=== PATIENT | female | born 1945 | race Caucasian/White ===

== ENCOUNTER 2017-07-29 11:13 | Inpatient (IN) | payer MEDICARE, OTHER ==
[~2017-07-29] VITALS: Ht 162.6 cm; Wt 103.9 kg
[~2017-07-29 11:13] MED LIST: ASPI81EC PO; ATEN50TA2 PO; FURO-570 PO; INSU100S10 SC; LANTUS SC; LISI-420 PO; NIFE60TE5 PO; POTA10TA PO; SIMV20TA6 PO; [UNRECOGNIZED DRUG - CODE] PO
[2017-07-29 11:33] VITALS: BP 155/66
--- NOTE | 2017-07-29 11:33 | NUR ---
Shade perales in [facility] - 07/29/17 at 1138 by LUCY PATIENT TO BED 4 AT THIS TIME.
--- NOTE | 2017-07-29 11:40 | NUR ---
PT PRESENTS TO ER W/C/O LEFT EAR PAIN S/P EARDRUM PERFORATION. PT STATES SHE WAS STARTED ON ABX, BUT DOESN'T FEEL ANY BETTER. HX OF DM, HTN, HYPERLIPIDEMIA. PT STATES SHE HAS RLQ PAIN;FEELS NAUSEATED BUT DENIES VOMITTING; ALSO C/O DIARRHEA;SKIN IS PINK/WARM/DRY; AAOX4 WITH EVEN AND STEADY GAIT; LUNGS CLEAR BL; HR EVEN AND REGULAR; PT DENIES ANY FEVER, CP, SOB, OR COUGH AT THIS TIME; PATIENT STATES PAIN OF 10/10 AT THIS TIME;PATIENT POSITIONED FOR COMFORT; HOB ELEVATED; BEDRAILS UP X2; BED DOWN.ALL MONITORS IN PLACED; ER MD MADE AWARE OF PT STATUS.
[2017-07-29] MEDS ORDERED: NACL 0.9% 1,000 ML IV SCH (11:55)
[2017-07-29] MEDS ORDERED: ONDANSETRON 4 MG/2 ML VIAL IVP ONE (11:55)
[2017-07-29] MEDS ORDERED: FAMOTIDINE 20 MG/2 ML VIAL IVP ONE (11:55)
[2017-07-29] MEDS ORDERED: KETOROLAC 30 MG/ML VIAL IVP ONE (11:55)
[2017-07-29 12:23] LABS: BASOPHILS # (AUTO) 0.1 K/uL (0.00-0.22); BASOPHILS % (AUTO) 0.9 % (0.0-2.0); EOSINOPHILS # (AUTO) 0.1 K/uL (0-0.4); EOSINOPHILS % (AUTO) 0.8 % (0.0-4.0); HEMATOCRIT 34.1 % (36-48); HEMOGLOBIN 10.9 g/dL (12.0-16.0); LYMPHOCYTES # (AUTO) 1.4 K/uL (2.5-16.5); LYMPHOCYTES % (AUTO) 9.7 % (20.5-51.1); MEAN CORPUSCULAR HEMOGLOBIN 29 pg (27-31); MEAN CORPUSCULAR HGB CONC 32 g/dL (33-37); MEAN CORPUSCULAR VOLUME 90 fL (80-94); MONOCYTES # (AUTO) 0.4 K/uL (0.8-1.0); MONOCYTES % (AUTO) 2.9 % (1.7-9.3); NEUTROPHILS # (AUTO) 12.4 K/uL (1.8-7.7); NEUTROPHILS % (AUTO) 85.7 % (42.2-75.2); PLATELET COUNT (AUTO) 277 K/uL (140-450); RED BLOOD CELL COUNT(AUTO) 3.78 MIL/uL (4.20-5.40); RED CELL DISTRIBUTION WIDTH 14.4 % (11.6-13.7); WHITE BLOOD COUNT (AUTO) 14.4 K/uL (4.8-10.8)
--- NOTE | 2017-07-29 12:27 | NUR ---
WENT TO CT SCAN ACCOMPANIED BY TECH.
[2017-07-29 12:45] LABS: ALBUMIN 3.3 g/dL (3.4-5.0); ANION GAP 14.2 (8-16); CARBON DIOXIDE 28.3 mmol/L (21-32); CREATININE 2.7 mg/dL (0.6-1.3); POTASSIUM 4.5 mmol/L (3.5-5.1); TOTAL BILIRUBIN 0.3 mg/dL (0.0-1.0)
[2017-07-29 13:04] LABS: APPEARANCE,URINE CLEAR (CLEAR); BILIRUBIN,URINE NEGATIVE (NEGATIVE); BLOOD, URINE NEGATIVE (NEGATIVE); COLOR,URINE YELLOW (YELLOW); LEUKOCYTE ESTERASE ,URINE NEGATIVE (NEGATIVE); NITRITE, URINE NEGATIVE (NEGATIVE); PH,URINE 5.5 (5.0-9.0); UGLUCOSE NEGATIVE (NEGATIVE)
[2017-07-29] MEDS ORDERED: PIPERACILLIN/TAZOBACTAM 3.375 GM in DEXTROSE 5% 50 ML IV ONE (13:25)
[2017-07-29] MEDS ORDERED: PIPERACILLIN/TAZOBACTAM 3.375 GM VIAL IV ONE (13:46)
--- NOTE | 2017-07-29 14:20 | NUR ---
PT RESTING ON BED;NO ACUTE DISTRESS NOTED;WILL CONTINUE TO MONITORPT.
[2017-07-29 14:58] LABS: PROTHROMBIN TIME 10.4 secs (10.8-13.4)
[2017-07-29] MEDS ORDERED: RENAL DOSING PER PHARMACY MC PRN (15:00)
[2017-07-29] MEDS ORDERED: DEXTROSE 50% 50 ML SYR IVP PRN (15:00)
[2017-07-29] MEDS ORDERED: ONDANSETRON 4 MG/2 ML VIAL IVP PRN ×2 (15:00→18:30)
[2017-07-29] MEDS ORDERED: HYDROcodone/APAP 5/325 MG 1 TAB TAB PO PRN (15:00)
[2017-07-29] MEDS ORDERED: ACETAMINOPHEN 325 MG TAB PO PRN (15:00)
--- NOTE | 2017-07-29 15:36 | NUR ---
Patient will be admitted to care of DR CUELLAR. Admited to TELE. Will go to room 120 B. Belongings list completed. Report to FABIOLA DEVI.
[2017-07-29 15:50] VITALS: BP 138/55
[2017-07-29] MEDS: NACL 0.9% 1,000 ML IV SCH (15:50)
--- NOTE | 2017-07-29 15:50 | NUR ---
PT ARRIVED TO UNIT FROM ER VIA GINA, PT IS AAOX4 FRENCH, ON ROOM AIR, IV TO LEFT AC 20G INFUSING WELL, SKIN INTACT, IVF STARTED AT THIS TIME, INITIAL ASSESSMENT COMPLETED, ORIENTED PT TO ROOM AND ENVIRONMENT, ALL SAFETY PRECAUTIONS MET, CALL LIGHT WITHIN REACH. WILL CONTINUE TO MONITOR.
[2017-07-29] MEDS: BLOOD GLUCOSE MONITORING 1 DEV DEV FS SCH ×2 (16:50→21:36)
[2017-07-29] MEDS ORDERED: INSULIN HUMAN NPH 100 UNITS/ML VIAL SUBQ SCH (17:00)
--- NOTE | 2017-07-29 17:48 | NUR ---
PT LEFT UNIT TO OR IN STABLE CONDITION.
[2017-07-29] MEDS ORDERED: ROCURONIUM 50 MG/5 ML VIAL IV ONE (18:00)
[2017-07-29] MEDS ORDERED: ONDANSETRON 4 MG/2 ML VIAL ONE (18:00)
[2017-07-29] MEDS ORDERED: DESFLURANE 240 ML BTL INH ONE (18:00)
[2017-07-29] MEDS ORDERED: SUCCINYLCHOLINE CHLORIDE 200 MG/10 ML VIAL IVP ONE (18:00)
[2017-07-29] MEDS ORDERED: PROPOFOL 200 MG/20 ML VIAL IV ONE (18:00)
[2017-07-29] MEDS ORDERED: fentaNYL 0.05 MG/ML VIAL ONE (18:10)
[2017-07-29] MEDS ORDERED: HYDROmorphone 1 MG/ML AMP IVP PRN ×2 (18:30→19:40)
[2017-07-29] MEDS ORDERED: BLOOD GLUCOSE MONITORING 1 DEV DEV FS ONE (18:30)
[2017-07-29] MEDS: BUPIVACAINE-MPF 0.25% 30 ML VIAL INJ ONE ×2 (18:35→18:42)
--- NOTE | 2017-07-29 19:21 | NUR ---
ENDORSED PLAN OF CARE TO NIGHT NURSE, PT CURRENTLY IN OR
--- NOTE | 2017-07-29 19:25 | NUR ---
Patient's Plan of Care was discussed and reviewed with SOLAR RESOURCE ASSESSOR: SAEED GRIFFIN
[2017-07-29 20:20] VITALS: BP 155/57
--- NOTE | 2017-07-29 20:20 | NUR ---
RECD. FROM OR VIA BED, REPORT GIVEN BY FABIOLA FELTON. AWAKE, A/OX4, DROWSY, RESPIRATION EVEN AND UNLABORED, S/P LAP APPENDECTOMY. IV OF NS INFUSING AT 100 ML/HR, LEFT AC G20. INCISION IN THE ABDOMEN (3) COVERED WITH BAND AID, ALL DRY AND INTACT. ON BILATERAL LEG SEQUENTIALS. DENIES PAIN 0/10. DAUGHTER IN LAW AND GRANDDAUGHTER AT THE BEDSIDE.DENIES PAIN 0/10. VS STABLE.
[2017-07-29] MEDS ORDERED: PIPERACILLIN/TAZOBACTAM 3.375 GM in DEXTROSE 5% 50 ML IV SCH (21:00)
--- NOTE | 2017-07-29 21:00 | NUR ---
ENCOURAGED TO TURN TO SIDES, AND DO DEEP BREATHING.
[2017-07-29] MEDS: PIPER/TAZO 2.25GM/D5W PREMIX 50 ML IV SCH (21:31)
[2017-07-29] MEDS: SIMVASTATIN 20 MG TAB PO SCH (21:36)
[2017-07-29] MEDS: ATENOLOL 50 MG TAB PO SCH (21:36)
--- NOTE | 2017-07-30 | NUR ---
STATED PAIN IN THE ABDOMEN IS JUST LIKE "SORE", WILL CALL NURSE WHEN PAIN INCREASES.
--- NOTE | 2017-07-30 00:14 | NUR ---
RECD. RESTING IN BED, AWAKE, A/OX4. RESPIRATION EVEN AND UNLABORED. IV OF NS AT 100 ML/HR INFUSING, LEFT AC 20. INCISION IN THE ABDOMEN (3) COVERED WITH BAND AID DRESSING, ALL DRY AND INTACT. VOIDING WELL AND AMBULATING. NO BM YET, PASSING GAS. PLAN OF CARE FOR THE SHIFT DISCUSSED. VERBALIZED UNDERSTANDING. DENIES PAIN 0/10.
[2017-07-30] MEDS: NACL 0.9% 1,000 ML IV SCH ×4 (00:56→20:56)
[2017-07-30 04:00] VITALS: BP 116/83
--- NOTE | 2017-07-30 05:00 | NUR ---
ASSISTED OUT OF BED TO AMBULATE TO GO TO BR. GAIT STEADY.
[2017-07-30] MEDS: PIPER/TAZO 2.25GM/D5W PREMIX 50 ML IV SCH ×3 (05:41→20:50)
[2017-07-30 06:07] LABS: BASOPHILS % (AUTO) 0.3 % (0.0-2.0); EOSINOPHILS # (AUTO) 0.2 K/uL (0-0.4); EOSINOPHILS % (AUTO) 1.8 % (0.0-4.0); HEMOGLOBIN 8.9 g/dL (12.0-16.0); LYMPHOCYTES # (AUTO) 1.1 K/uL (2.5-16.5); MEAN CORPUSCULAR HEMOGLOBIN 29 pg (27-31); MEAN CORPUSCULAR HGB CONC 32 g/dL (33-37); MEAN CORPUSCULAR VOLUME 90 fL (80-94); MONOCYTES # (AUTO) 0.4 K/uL (0.8-1.0); MONOCYTES % (AUTO) 3.4 % (1.7-9.3); NEUTROPHILS # (AUTO) 10.3 K/uL (1.8-7.7); NEUTROPHILS % (AUTO) 85.5 % (42.2-75.2); PLATELET COUNT (AUTO) 236 K/uL (140-450); RED BLOOD CELL COUNT(AUTO) 3.11 MIL/uL (4.20-5.40); RED CELL DISTRIBUTION WIDTH 14.4 % (11.6-13.7)
[2017-07-30] MEDS: BLOOD GLUCOSE MONITORING 1 DEV DEV FS SCH ×4 (06:15→20:24)
[2017-07-30] MEDS: INSULIN LISPRO SLIDING SCALE 100 UNITS/ML VIAL SUBQ PRN ×4 (06:17→20:26)
[2017-07-30 06:24] LABS: ANION GAP 14.8 (8-16); CARBON DIOXIDE 24.7 mmol/L (21-32); CREATININE 2.5 mg/dL (0.6-1.3); POTASSIUM 4.5 mmol/L (3.5-5.1)
[2017-07-30 06:34] LABS: MAGNESIUM 1.8 mg/dL (1.8-2.4); PHOSPHORUS 4.2 mg/dL (2.5-4.9)
--- NOTE | 2017-07-30 06:52 | NUR ---
CONDITION REMAIN STABLE. ABLE TO VOID SMALL AMOUNT OF YELLOW URINE. ENCOURAGED TO AMBULATE MORE.
--- NOTE | 2017-07-30 07:10 | NUR ---
RECEIVED REPORT FROM POUCH MAKER NURSE AT BEDSIDE FOR CONTINUITY OF CARE. PT IS AWAKE AND ORIENTED. INTRODUCED SELF AND UPDATED BOARD.
[2017-07-30 07:57] VITALS: BP 107/50
[2017-07-30] MEDS: NIFEdipine 60 MG TABER PO SCH (08:26)
[2017-07-30] MEDS: ATENOLOL 50 MG TAB PO SCH ×2 (08:26→20:23)
[2017-07-30] MEDS: ENOXAPARIN 30 MG/0.3 ML SYR SUBQ SCH (08:27)
[2017-07-30] MEDS ORDERED: ECOTRIN 81 MG TABEC PO SCH (09:00)
[2017-07-30] MEDS ORDERED: POTASSIUM CITRATE 10 MEQ PO SCH (09:00)
--- NOTE | 2017-07-30 09:05 | NUR ---
ADMINISTERED SCHEDULED MEDS TO PT. PT TOLERATED WELL. IV OF NS IS STILL INFUSING AT 100ML/HR ON LEFT AC 20G. IV SITE IS INTACT. PT STATES PAIN THAT IS TOLERABLE 1/10 SCALE ON ABDOMEN. REFUSED PAIN MED. WILL CONTINUE TO MONITOR.
--- NOTE | 2017-07-30 09:20 | NUR ---
[facility] REFERRAL RECEIVED ON 07/29/2017-1636 FOR UNSPECIFIED REASON. REFERRAL DOES NOT MEET HIGH RISK CRITERIA PER HOSPITAL POLICY. PATIENT WILL BE SEEN AND ASSESSED ACCORDING TO THE NUTRITION CARE POLICY.
--- NOTE | 2017-07-30 09:21 | NUR ---
PATIENT HAS BEEN SCREENED AND CATEGORIZED MODERATE NUTRITION RISK. PATIENT WILL BE SEEN WITHIN 3-5 DAYS OF ADMISSION. 08/01/17-08/03/[address]
[2017-07-30 12:00] VITALS: BP 130/45
[2017-07-30] MEDS: HYDROcodone/APAP 5/325 MG 1 TAB TAB PO PRN ×2 (12:45→20:23)
--- NOTE | 2017-07-30 12:45 | NUR ---
PT'S FAMILY IS AT BEDSIDE. PT STATED PAIN ON HER ABDOMINAL AREA 01/03. ADMINISTERED NORCO FOR MILD PAIN. BS WAS 210. ADMINISTERED 4UNITS INSULIN. PT TOLERATED MEDS WELL. PT ALSO GOT UP TO WALK AROUND THE UNIT ASSISTED BY FAMILY MEMBER. PT HAS NO WEAKNESS OR DIZZINESS NOTED. PT WALKED WITH STEADY GAIT AND GOT UP TO USE BATHROOM. ASSISTED BACK TO BED AND REPOSITIONED FOR COMFORT. NO COMPLAINTS AT THIS TIME. WILL CONTINUE TO MONITOR.
--- NOTE | 2017-07-30 13:33 | NUR ---
CHECKED ON PT IN ROOM. FAMILY IS AT BEDSIDE. PT HAS NO COMPLAINTS AT THIS TIME WILL CONTINUE TO MONITOR.
[2017-07-30 16:00] VITALS: BP 111/43
[2017-07-30] MEDS: ONDANSETRON 4 MG/2 ML VIAL IV PRN (18:11)
--- NOTE | 2017-07-30 18:11 | NUR ---
PT WAS FEELING NAUSEOUS. ADMINISTERED ZOFRAN FOR NAUSEA. GAVE PT AND FAMILY MEMBER MED SIDE EFFECTS AND TEACHING. FAMILY MEMBER AT BEDSIDE AND TRANSLATED FOR PT. PT TOLERATED WELL AND VERBALIZED UNDERSTANDING. WILL CONTINUE TO MONITOR.
--- NOTE | 2017-07-30 19:07 | NUR ---
ENDORSED PT TO TEAM MEMBER NURSE AT BEDSIDE FOR CONTINUITY OF CARE. PT IS AWAKE AND ORIENTED. FAMILY AT BEDSIDE. PT IN STABLE CONDITION.
[2017-07-30 20:00] VITALS: BP 101/43
--- NOTE | 2017-07-30 20:00 | NUR ---
02 SAT - 88 - 90%, PUT ON 02 AT 2 LITERS VIA NC/, 02 SAT - 92-94%, ENCOURAGED TO DO DEEP BREATHING.
[2017-07-30] MEDS: SIMVASTATIN 20 MG TAB PO SCH (20:23)
--- NOTE | 2017-07-30 20:23 | NUR ---
DUE PO MEDICATIONS GIVEN. TOLERATED WELL.
--- NOTE | 2017-07-30 21:00 | NUR ---
Patient's Plan of Care was discussed and reviewed with DRAFTER HEATING AND VENTILATING: SAEED GRIFFIN
--- NOTE | 2017-07-30 22:00 | NUR ---
ASSISTED TO GET OUT OF BED GO TO BR TO VOID. BACK TO BED AFTER VOIDING. WENT BACK TO SLEEP.
[2017-07-31] VITALS (21 sets, daily range): BP systolic 97–129; BP diastolic 41–75
--- NOTE | 2017-07-31 | NUR ---
SLEEPING ON LEFT SIDE, ENCOURAGED TO TURN ON THE OTHER SIDE AND DO IT ALTERNATELY.
[2017-07-31] MEDS: NACL 0.9% 1,000 ML IV SCH ×2 (00:07→06:56)
[2017-07-31] MEDS: PIPER/TAZO 2.25GM/D5W PREMIX 50 ML IV SCH ×3 (04:33→22:08)
[2017-07-31] MEDS: BLOOD GLUCOSE MONITORING 1 DEV DEV FS SCH ×5 (06:10→21:00)
--- NOTE | 2017-07-31 06:10 | NUR ---
BLOOD SUGAR CHECKED - 238, WILL GIVE INSULIN COVERAGE, ASYMPTOMATIC.
[2017-07-31] MEDS: INSULIN LISPRO SLIDING SCALE 100 UNITS/ML VIAL SUBQ PRN ×4 (06:15→22:31)
[2017-07-31 06:22] LABS: BASOPHILS % (AUTO) 0.4 % (0.0-2.0); EOSINOPHILS # (AUTO) 0.3 K/uL (0-0.4); EOSINOPHILS % (AUTO) 2.2 % (0.0-4.0); HEMOGLOBIN 9.1 g/dL (12.0-16.0); LYMPHOCYTES # (AUTO) 1.4 K/uL (2.5-16.5); LYMPHOCYTES % (AUTO) 11.7 % (20.5-51.1); MEAN CORPUSCULAR HEMOGLOBIN 29 pg (27-31); MEAN CORPUSCULAR HGB CONC 32 g/dL (33-37); MEAN CORPUSCULAR VOLUME 90 fL (80-94); MONOCYTES # (AUTO) 0.4 K/uL (0.8-1.0); MONOCYTES % (AUTO) 3.4 % (1.7-9.3); NEUTROPHILS # (AUTO) 9.6 K/uL (1.8-7.7); NEUTROPHILS % (AUTO) 82.3 % (42.2-75.2); PLATELET COUNT (AUTO) 237 K/uL (140-450); RED BLOOD CELL COUNT(AUTO) 3.11 MIL/uL (4.20-5.40); RED CELL DISTRIBUTION WIDTH 14.8 % (11.6-13.7); WHITE BLOOD COUNT (AUTO) 11.7 K/uL (4.8-10.8)
[2017-07-31 06:35] LABS: CARBON DIOXIDE 22.6 mmol/L (21-32); CREATININE 3.6 mg/dL (0.6-1.3); POTASSIUM 4.6 mmol/L (3.5-5.1)
--- NOTE | 2017-07-31 07:00 | NUR ---
INFORMED DR. CUELLAR PATIENT BUN - 67, CREATININE - 3.6, DR. MANRIQUE HAVE NOT SEEN THE PATIENT YET. WILL CALL FOLLOW UP WITH DR. MANRIQUE, NEPHRO CONSULT. ALSO INFORMED PATIENT HAS NOT BEEN TAKING LASIX 50 MG. EVERY OTHER DAY WHICH SHE TAKES AT HOME.
--- NOTE | 2017-07-31 07:05 | NUR ---
ENDORSED TO AM NURSE FOR CONTINUITY OF CARE. CONDITION REMAIN STABLE.
--- NOTE | 2017-07-31 07:06 | NUR ---
RECEIVED REPORT FROM GREENHOUSE INSTRUCTOR NURSE AT BEDSIDE FOR CONTINUITY OF CARE. PT IS AWAKE AND ORIENTED. INTRODUCED SELF AND UPDATED BOARD. WILL CONTINUE WITH CURRENT PLAN OF CARE AND MONITOR.
--- NOTE | 2017-07-31 08:00 | NUR ---
PT IS AAOX4, AMBULATES TO BATHROOM WITH STEADY GAIT. PT ON TELE MONITOR SB 55. NO COMPLAINTS OF CHEST PAIN. SKIN IS WARM AND DRY. INCISIONS FROM S/P LAP APPENDECTOMY ARE COVERED WITH BANDAIDS AND DRY AND INTACT. PITTING EDEMA +1 NOTED ON UPPER EXTREMITIES. IV IS ON LEFT AC 20G WITH NS INFUSING AT 100ML/HR. PT IS ON O2 VIA NC 2L AND SAT 94%. NO RESPIRATORY DISTRESS NOTED. ABDOMEN IS SOFT AND ROUND, BS PRESENT. PER PT AND DAUGHTER AYESHA REPORTED PT IS NOT PASSING GAS AND HAD NO BM SINCE SURGERY. PT DENIES PAIN OR NAUSEA AT THIS TIME. WILL CONTINUE TO MONITOR.
[2017-07-31] MEDS: ENOXAPARIN 30 MG/0.3 ML SYR SUBQ SCH (08:33)
[2017-07-31] MEDS: ATENOLOL 50 MG TAB PO SCH ×2 (08:33→21:45)
[2017-07-31] MEDS: NIFEdipine 60 MG TABER PO SCH (08:33)
--- NOTE | 2017-07-31 08:45 | NUR ---
CALLED PT'S DAUGHTER AYESHA. STATED THAT PT TAKES LEVEMIR 65 UNITS DAILY AT HOME. UPDATED DAUGHTER WITH STATUS OF PT. PT IS RESTING IN BED RIGHT NOW. PT DENIES HAVING PAIN OR HEADACHE. WILL CONTINUE TO MONITOR.
[2017-07-31] MEDS: INSULIN DETEMIR 100 UNITS/ML 10 ML VIAL SUBQ SCH (09:48)
--- NOTE | 2017-07-31 10:30 | NUR ---
PT'S DAUGHTER AYESHA IS AT BEDSIDE. REPORTED FOR PT THAT SHE DENIES PAIN. PT ALSO DENIED PAIN, DIZZINESS, OR WEAKNESS. PULLED UP PT IN BED AND REPOSITIONED WITH HOB ELEVATED. REINFORCED PT TO USE CALL LIGHT WHEN NEEDED AND TO CALL WHEN SHE WANTS TO GET OUT OF BED. PT AND DAUGHTER VERBALIZED UNDERSTANDING.
--- NOTE | 2017-07-31 12:35 | NUR ---
CHECKED ON PT IN ROOM. FAMILY IS AT BEDSIDE. PER PT STATED THAT SHE WANTS TO AMBULATE DOWN THE ORTIZ. DENIES PAIN. REMOVED SCDS AT THIS TIME DUE TO PT REFUSAL TO WEAR IN BED. NO OTHER COMPLAINTS AT THIS TIME WILL CONTINUE TO MONITOR.
--- NOTE | 2017-07-31 12:59 | NUR ---
CM NOTE PER ADELITA FOR CM KATEY MEDINA OF [facility] [phone] EXT [phone], REVIEWS SHOULD BE SENT TO [facility] AND FOR ANY DISCHARGE NEEDS TO CONTACT [facility]. PER OPAL OF [facility] PH [phone] EXT [phone], THEY ALSO NEED A COPY OF THE REVIEWS TO BE FAXED TO THEM BUT FOR ANY DISCHARGE NEEDS TO CONTACT [facility]. INITIAL REVIEW FAXED TO [facility] [phone] DAVID MEDINA EXT [phone] AND TO [facility] [phone] OPAL EXT [phone] Addendum: 07/31/17 at 1504 by Karena Jimenez RECEIVED FAX FROM [facility] STATING THAT THIS ADMISSION'S REF# [id number]/02/2017 PER MARYANNE Adams OF ADMITTING COVERING FOR [facility] REF# [id number]
--- NOTE | 2017-07-31 13:50 | NUR ---
DR. DOMINGUEZ CAME IN AND SAW PT. RECEIVED ORDER TO D/C IV FLUIDS OF NS AND INSERT DEWEY CATHETER. D/C'S IV FLUIDS. PT IS SLEEPING IN BED RIGHT NOW WITH FAMILY AT BEDSIDE. FAMILY MEMBER TRANSLATED FOR PT AND SAID THAT PT IS AWARE TO HAVE DEWEY CATHETER INSERTED AND NO NEED FOR IV FLUIDS. PT VERBALIZED UNDERSTANDING. AT THIS TIME PT HAS NO COMPLAINTS
[2017-07-31] MEDS ORDERED: FUROSEMIDE 40 MG/4 ML VIAL IVP SCH (14:00)
--- NOTE | 2017-07-31 17:00 | NUR ---
CALLED DR. DOMINGUEZ AND REPORTED DEWEY CATHETER INSERTED AND 300ML OF URINE OUTPUT. AFTER LASIX GIVEN IVP 200ML OUTPUT MORE NOTED. D/C'D IV FLUIDS PER ORDERS. PT RESTING IN BED. VISITOR AT BEDSIDE. WILL CONTINUE TO MONITOR
[2017-07-31] MEDS ORDERED: SODIUM BICARBONATE 8.4% PFS 50 MEQ/50 ML SYR IVP ONE (19:15)
[2017-07-31] MEDS ORDERED: CODE BLUE PARTICIPANT 1 EA MISC MC ONE (19:15)
[2017-07-31] MEDS ORDERED: ETOMIDATE 20 MG/10 ML VIAL IVP ONE (19:15)
[2017-07-31] MEDS ORDERED: EPINEPHrine PFS 0.1 MG/ML SYR IVP ONE (19:15)
--- NOTE | 2017-07-31 19:15 | NUR ---
PT CALLED WITH COMPLAINING OF SOB. CHECKED ON PT AND ASSISTED PT TO SITTING UP POSITION. PT WAS ON O2 VIA NC 2L. PT BECAME UNRESPONSIVE AND RORY VILLAR WAS CALLED. DR. BRUNSON AND CODE TEAM CAME AND CPR WAS STARTED. PT WAS INTUBATED AND CODE ENDED AT 1922.
--- NOTE | 2017-07-31 19:35 | NUR ---
DR. CUELLAR NOTIFIED THAT PATIENT CODED AND TRANSFERRED TO ICU.
--- NOTE | 2017-07-31 19:39 | NUR ---
RECEIVED PATIENT FROM THE FLOOR, ACCOMPANIED BY EMT,RN AND RT. REPORT GIVEN BY ELIZABETH HICKS. PER NÉSTOR PT HAS DIFFICULTY BREATHING AND CODED ON THE FLOOR. PATIENT AWAKE NON VERBAL, ETT TO VENT WITH AC 12,TV 500,FIO2 50,PEEP 5.PT ON CARDIAC MONITORING,IV LINE TO LEFT AC 20 GAUGE PATENT INTACT,EDEMA BUE NON PITTING,F/C INPLACE WITH YELLOW CLEAR URINE DRAINAGE BY GRAVITY.BED IN LOW POSITION .SAFETY MEASURE.CONTINUE TO MONITOR.
--- NOTE | 2017-07-31 19:40 | NUR ---
PT WAS TRANSFERRED TO ICU. DAUGHTER AYESHA WAS CALLED AT [phone] AND NOTIFIED OF CHANGE IN CONDITION AND TRANSFER.
--- NOTE | 2017-07-31 19:48 | NUR ---
191 CODE BLUE [place] CALLED AND CPR INITIATED , PT INTUBATED BY DR BRUNSON W/ 7.5 ETT AND TAPED AT 25CM AT LIP. PT WAS TRANSFERRED TO ICU BED #2, VIA 100% AMBU BAG AND PLACED ON VENTILATOR IN ICU. SETTING ARE A/C12, VT 500, FIO2 50% PEEP +[address] BRUNSON. GAVE REPORT TO MR. Keara SEQUEIRA,BOBBIN LOOSE END FINDER
--- NOTE | 2017-07-31 20:00 | NUR ---
OGT INSERTED , PLACEMENT CONFIRM BY AUSCULTATION AND X-RAY. Addendum: 08/01/17 at 0641 by Beverly Lopes RN TIME CORRECTION IS 2100 INSTEAD OF 2000
--- NOTE | 2017-07-31 20:12 | NUR ---
PAGED DR. YANELI CUELLAR TO NOTIFY AND UPDATE HIM ABOUT THE STATUS OF THE PATIENT; WITH NEW ORDERS CARRIED OUT.
[2017-07-31] MEDS ORDERED: PROPOFOL 1000 MG/100 ML PREMIX 100 ML IV PRN (20:15)
--- NOTE | 2017-07-31 20:33 | NUR ---
CODE BLUE AT 1916 HOURS PATIENT INTUBATED BY ER DOCTOR. PATIENT TRANSFERRED TO ICU. ETT 7.5/ 22 CM LIP LINE. PATIENT PLACED ON VENT AC 12, VT 500 PEEP 5, FIO2 50. PATIENT STABLE IN ICU ON VENT SEE ABOVE SETTINGS.
[2017-07-31] MEDS ORDERED: PROPOFOL 1000 MG/100 ML PREMIX 100 ML IV ONE (20:34)
--- NOTE | 2017-07-31 20:40 | NUR ---
FAMILY MEMBER, AYESHA (DAUGHTER IN LAW), LEIDY (GRANDDAUGHTER) IN THE UNIT. UPDATED OF PATIENT'S CONDITION. FAMILY MEMBER VERBALIZED UNDERSTANDING.
[2017-07-31] MEDS: DEXT 5% / NACL 0.45% 1,000 ML IV SCH (20:41)
--- NOTE | 2017-07-31 20:50 | NUR ---
FOR CONSULTATION TO REGIONAL ENVIRONMENTAL MANAGER, DR. PLASCENCIA; NOTIFIED THRU TELEPHONE; WITH NEW ORDERS, CARRIED OUT.
--- NOTE | 2017-07-31 20:56 | NUR ---
PT STARTED ON PROPOFOL DRIP AT 5MCG/KG/MIN, RASS -3 PER MD ORDER.
[2017-07-31] MEDS ORDERED: INSULIN LISPRO 100 UNITS/ML VIAL SUBQ SCH (21:00)
--- NOTE | 2017-07-31 21:12 | NUR ---
DR. Jason CUELLAR NOTIFIED AND UPDATED THRU TELEPHONE ABOUT THE PATIENT'S MEDICAL CONDITION, NO NEW ORDER MADE.
--- NOTE | 2017-07-31 21:45 | NUR ---
TERNORMIN 50 MG NOT GIVEN D/T LOW BP 99/45 HR 55.
[2017-07-31 21:55] LABS: CREATINE KINASE MB 9.7 ng/mL (0-3.6)
[2017-07-31] MEDS: ALBUTEROL SULFATE/IPRATROPIU 3 ML SOL IH PRN (22:08)
[2017-07-31] MEDS: SIMVASTATIN 20 MG TAB PO SCH (22:08)
--- NOTE | 2017-07-31 22:30 | NUR ---
O2 SAT 89-90% RT INCREASE FIO2 TO 100%,AC 12,TV 500,PEEP 5 TOLERATED WELL SPO2 100%.
[2017-07-31] MEDS: MORPHINE SULFATE 4 MG/ML SYR IV PRN (22:44)
[2017-08-01] VITALS (26 sets, daily range): BP systolic 82–162; BP diastolic 38–93
[2017-08-01] MEDS ORDERED: VANCOMYCIN PER PHARMACY MC PRN (01:05)
--- NOTE | 2017-08-01 01:10 | NUR ---
STOP PROPOFOL DRIP D/T HR 48-50 X/MIN, BP ABOUT 91/41.CONTINUE TO MONITOR CLOSELY
[2017-08-01] MEDS: LORazepam 2 MG/ML VIAL IVP PRN (01:25)
--- NOTE | 2017-08-01 03:00 | NUR ---
PT SLEEP WELL,NO S/S OF RESP.DISTRESS,NO SOB.CALL LIGHT IN REACH.
[2017-08-01] MEDS ORDERED: VANCOMYCIN 1,000 MG VIAL ONE (03:42)
[2017-08-01] MEDS ORDERED: VANCOMYCIN HCL 1,500 MG in NACL 0.9% 500 ML IV SCH (04:00)
--- NOTE | 2017-08-01 05:00 | NUR ---
PT AWAKE ALERT,NO S/S OF RESP DISTRESS,NO SOB,CONT ON ETT TO VENT BK WELL.AM CARE GIVEN,F/C CARE GIVEN.REPOSITION FOR COMFORT.GENTLE CARE RENDERED.
--- NOTE | 2017-08-01 06:00 | NUR ---
SURGICAL SITE ON ABD NO.1 WITH 3 KALLI AROUND THE SITE BRUISE ECCHYMOSIS,SURGICAL SITE NO 2 AT ABD ON UMBILICUS SITE WITH 4 KALLI, SURGICAL SITE NO 3 LOWER ABD WITH 2 KALLI INTACT NO S/S OF INFECTION.
[2017-08-01 06:06] LABS: HEMATOCRIT 26.4 % (36-48); HEMOGLOBIN 8.2 g/dL (12.0-16.0); MEAN CORPUSCULAR HEMOGLOBIN 28 pg (27-31); MEAN CORPUSCULAR HGB CONC 31 g/dL (33-37); MEAN CORPUSCULAR VOLUME 91 fL (80-94); PLATELET COUNT (AUTO) 251 K/uL (140-450); RED BLOOD CELL COUNT(AUTO) 2.89 MIL/uL (4.20-5.40); RED CELL DISTRIBUTION WIDTH 14.9 % (11.6-13.7); WHITE BLOOD COUNT (AUTO) 12.4 K/uL (4.8-10.8)
[2017-08-01] MEDS: DEXT 5% / NACL 0.45% 1,000 ML IV SCH ×2 (06:15→10:18)
[2017-08-01] MEDS: PIPER/TAZO 2.25GM/D5W PREMIX 50 ML IV SCH ×3 (06:32→21:00)
[2017-08-01] MEDS: BLOOD GLUCOSE MONITORING 1 DEV DEV FS SCH ×4 (06:33→20:59)
--- NOTE | 2017-08-01 06:55 | NUR ---
BLOOD SUGAR CHECKED RESULT 102,NO COVERAGE GIVEN.
[2017-08-01 07:07] LABS: CREATININE 3.8 mg/dL (0.6-1.3)
[2017-08-01 07:28] LABS: MAGNESIUM 2.1 mg/dL (1.8-2.4)
--- NOTE | 2017-08-01 07:33 | NUR ---
RECIVED PT ON VENT WITH SETTINGS CHARTED BREATH SOUNDS PRESENT BILAT CLEAR PT AWAKE ALERT WEANING PARAMETERS CHARTED SXN PT WITH SCANT PINKISH SECS AMBU BAG AT BEDSIDE VENT PLUGGED INTO RED OUTLET
[2017-08-01 07:37] LABS: EOSINOPHILS % (MANUAL) 2 % (0-4); LYMPHOCYTES % (MANUAL) 13 % (20-46); MONOCYTES % (MANUAL) 8 % (5-12)
--- NOTE | 2017-08-01 07:38 | NUR ---
REPORT GIVEN TO SRI FOR CONTINUATION OF CARE.PT AWAKE WITH STABLE CONDITION,NO RESP DISTRESS, NO SOB, ON ETT TO VENT WITH SPO2 100 %.
[2017-08-01 07:39] LABS: CREATINE KINASE MB 12.9 ng/mL (0-3.6)
--- NOTE | 2017-08-01 08:45 | NUR ---
PLACED PT ON CPAP PS [address]ASC[address]IA PT SEEM TO KB WELL AT THIS TIME WILL CONTINUE TO MONITOR PT
[2017-08-01] MEDS: ALBUTEROL SULFATE/IPRATROPIU 3 ML SOL IH PRN (08:58)
[2017-08-01] MEDS: ATENOLOL 50 MG TAB PO SCH ×2 (09:00→21:01)
[2017-08-01] MEDS: INSULIN DETEMIR 100 UNITS/ML 10 ML VIAL SUBQ SCH (09:00)
[2017-08-01] MEDS: NIFEdipine 60 MG TABER PO SCH (09:00)
[2017-08-01] MEDS ORDERED: PROBIOTIC SCREEN 1 EA MISC MC PRN (09:40)
[2017-08-01] MEDS ORDERED: LACTOBACILLUS RHAMNOSUS GG 1 EACH CAP PO SCH (09:40)
--- NOTE | 2017-08-01 09:55 | NUR ---
DR. CUELLAR HERE TO SEE AND EXAMINE PT. MADE AWARE THAT ATENOLOL WAS HELD DUE TO BRADYCARDIA, PROCARDIA HELD ( PT . HAS OGT, CAN NOT CRUSH PILL), PRATEEK HELD, PT. IS NPO.
[2017-08-01] MEDS: ENOXAPARIN 30 MG/0.3 ML SYR SUBQ SCH (10:00)
[2017-08-01] MEDS ORDERED: PANTOPRAZOLE 40 MG INJ VIAL IVP SCH (10:06)
--- NOTE | 2017-08-01 10:06 | NUR ---
DECREASED FIO2 TO .45 RN AWARE
--- NOTE | 2017-08-01 10:58 | NUR ---
CM NOTE CONCURRENT REVIEW FAXED TO [facility] [phone] PH [phone] DAVID MEDINA EXT [phone] PER [facility] PH# [phone] EXT [phone], [facility] DOES NOT NEED ANY FURTHER REVIEWS FOR THIS ADMISSION
--- NOTE | 2017-08-01 12:05 | NUR ---
08/01/17 RD INITIAL ASSESSMENT COMPLETED PLEASE REFER TO NUTRITION ASSESSMENT UNDER CARE ACTIVITY FOR ESTIMATED NUTRITIONAL NEEDS. 1. WHEN MEDICALLY FEASIBLE, RESUME PO DIET TO START ON CLEAR LIQUID DIET AND ADVANCE TOLERATED TO 60G CONSISTENT CARBOHYDRATE DIET 2. IF PATIENT TO REMAIN INTUBATED >5 DAYS, CONSIDER ENTERAL NUTRITION SUPPORT VIA NGT ON DAY 3-5 (DIABETISOURCE AC TO START AT 30 ML/HR). CONSULT RD FOR TUBE FEEDING GOAL RATE RECOMMENDATIONS 3. RD TO FOLLOW-UP 2-3 DAYS, HIGH RISK PATRICIA VACA RD
[2017-08-01] MEDS: ONDANSETRON 4 MG/2 ML VIAL IV PRN ×2 (13:23→18:53)
--- NOTE | 2017-08-01 13:30 | NUR ---
Pt became very nauseated and felt like throwing up after HOB flat briefly during position change. zofran administered
[2017-08-01] MEDS ORDERED: FUROSEMIDE 40 MG/4 ML VIAL IVP SCH ×2 (15:00→15:15)
[2017-08-01 16:06] LABS: CREATINE KINASE MB 9.5 ng/mL (0-3.6)
[2017-08-01] MEDS: LACTOBACILLUS RHAMNOSUS GG 1 EACH CAP PO SCH (17:29)
--- NOTE | 2017-08-01 18:52 | NUR ---
PT. C/O OF FEELING NAUSEATED. RESTLESS, REPOSITIONED. HOB ELEVATED. ZOFRAN 4 MG IVP GIVEN.
--- NOTE | 2017-08-01 18:53 | NUR ---
STILL RESTLESS, KEPT ON MOVING AROUND IN BED. C/O PAIN OVER EPIGASTRIC AREA 03/05. MORPHINE GIVEN ORDERED.
--- NOTE | 2017-08-01 18:53 | NUR ---
PT IS VERY AGITATED AT THIS TIME O2 SAT DECREASED TO 77% INCREASED FIO2 TO 80% PLACED BACK ON AC 12 VT500 PEEP 5 FIO2 80% ALARMS ON AND FUNCTIONING PROPERLY AMBU BAG AT SIDE OF VENT AND VENTILATOR IS PLUGGED INTO RED OUTLET, SXN PT SMALL AMT OF BROWN SECRETIONS B\S ARE COARSE BILATERALLY, PT IS ORALLY INTUBATED WITH 7.5 ET TUBE SECURED WITH ANCHOR FAST AT 22 CM AT MIDLINE AND MOV IS 22 CMHO2 PT WAS MORPHINE TO SEDATED HER, NO RESTING
[2017-08-01] MEDS: MORPHINE SULFATE 4 MG/ML SYR IV PRN (18:54)
--- NOTE | 2017-08-01 19:20 | NUR ---
SLEEPING SOUNDLY AT THIS TIME.
--- NOTE | 2017-08-01 19:25 | NUR ---
RECEIVE PT FROM SRI RN,PT LYING ON THE BED,OPEN HER EYES WHEN CALL HER NAME,ABLE TO GIVE SIGN FOR YES OR NO,NO S/S OF RESP DISTRESS,NO SOB, ETT TO VENT WITH SETTING AC 12 TV 500 FIO2 80 PEEP 5. OGT CONNECT TO INTERMITTEN SUCTION WITH BROWNISH COLOR IN CANISTER. NO C/O NAUSEA AT THIS TIME. DEBORA LUNGS SOUND DIMINISH.PERIPHERAL LINE TO LEFT ANTECUBITAL NO 20 GAUGE INTACT AND PATENT. BOTH HAND EDEMA +1 NON PITTING.ABD SOFT NON DISTENDED, HYPOACTIVE BOWEL SOUND HEARD OVER ALL QUADRANT.F/C IN PLACE YELLOW CLEAR URINE ON THE BSD BAG.SCD ON BLE.
--- NOTE | 2017-08-01 20:01 | NUR ---
RT CHANGE VENT SETTING TO AC 12 TV 500 FIO2 60 PEEP 5 KB WELL.
--- NOTE | 2017-08-01 20:46 | NUR ---
VENT CHECK, NO SXN REQUIRED AT THIS TIME, B\S ARE COARSE AND AIRWAY IS PATENT FAMILY AT BEDSIDE
[2017-08-01] MEDS: SIMVASTATIN 20 MG TAB PO SCH (21:00)
--- NOTE | 2017-08-01 21:00 | NUR ---
FAMILY AT BED SIDE. NIGHT MEDS GIVEN TOLERATED WELL,BLOOD SUGAR 105 NO INSULIN NEEDED. HOB UP 30-45 DEGREE.LOOK COMFORTABLE,NO S/S OF PAIN/DISCOMFORT.CALL LIGHT IN REACH.
--- NOTE | 2017-08-01 23:06 | NUR ---
VENT CHECK, NO SXN REQUIRED AT THIS TIME, AIRWAY IS PATENT AND PT IS SLEEPING DECREASED FIO2 TO 50%
--- NOTE | 2017-08-01 23:10 | NUR ---
FIO2 TO 50% BY RT KB WELL, NO S/S OF RESP.DISTRESS,NO SOB. PT SLEPT WELL.
[2017-08-02] VITALS (15 sets, daily range): BP systolic 124–153; BP diastolic 46–66
--- NOTE | 2017-08-02 00:30 | NUR ---
VENT CHECK, NO SXN REQUIRED AT THIS TIME AIRWAY IS PATENT AND PT IS SLEEPING DECREASED FIO2 TO 40%
--- NOTE | 2017-08-02 00:45 | NUR ---
FIO2 WAS DECREASE TO 40% BY RT AND PT TOLERATED WELL,NO RESP DISTRESS,NO SOB, O2 SAT 97%. REPOSITION PT FOR COMFORT.
--- NOTE | 2017-08-02 03:21 | NUR ---
VENT CHECK, SXN PT SMALL AMT OF CREAM COLOR SECRETIONS, AIRWAY IS PATENT AND PT IS RESTING
--- NOTE | 2017-08-02 05:00 | NUR ---
MORNING CARE GIVEN TOLERATED WELL,
--- NOTE | 2017-08-02 05:06 | NUR ---
VENT CHECK, NO SXN REQUIRED AT THIS TIME, AIRWAY IS PATENT CHANGED HME CRESPO AND T-PIECE PT IS RESTING WITH NO SIGNS OF DISTRESS NOTED
[2017-08-02] MEDS: PIPER/TAZO 2.25GM/D5W PREMIX 50 ML IV SCH ×3 (05:11→21:05)
[2017-08-02 05:33] LABS: BASOPHILS # (AUTO) 0.1 K/uL (0.00-0.22); BASOPHILS % (AUTO) 1.1 % (0.0-2.0); EOSINOPHILS # (AUTO) 0.1 K/uL (0-0.4); EOSINOPHILS % (AUTO) 1.2 % (0.0-4.0); HEMATOCRIT 25.2 % (36-48); HEMOGLOBIN 8.3 g/dL (12.0-16.0); LYMPHOCYTES # (AUTO) 1.3 K/uL (2.5-16.5); LYMPHOCYTES % (AUTO) 14.5 % (20.5-51.1); MEAN CORPUSCULAR HEMOGLOBIN 29 pg (27-31); MEAN CORPUSCULAR HGB CONC 33 g/dL (33-37); MEAN CORPUSCULAR VOLUME 88 fL (80-94); MONOCYTES # (AUTO) 0.5 K/uL (0.8-1.0); MONOCYTES % (AUTO) 5.6 % (1.7-9.3); NEUTROPHILS # (AUTO) 7.1 K/uL (1.8-7.7); NEUTROPHILS % (AUTO) 77.6 % (42.2-75.2); PLATELET COUNT (AUTO) 279 K/uL (140-450); RED BLOOD CELL COUNT(AUTO) 2.86 MIL/uL (4.20-5.40); RED CELL DISTRIBUTION WIDTH 14.5 % (11.6-13.7)
[2017-08-02 05:44] LABS: ALBUMIN 2.2 g/dL (3.4-5.0); ANION GAP 12.2 (8-16); CARBON DIOXIDE 27.3 mmol/L (21-32); CREATININE 3.3 mg/dL (0.6-1.3); MAGNESIUM 1.7 mg/dL (1.8-2.4); POTASSIUM 3.5 mmol/L (3.5-5.1); TOTAL BILIRUBIN 0.4 mg/dL (0.0-1.0)
[2017-08-02 06:20] LABS: WHITE BLOOD COUNT (AUTO) 9.1 K/uL (4.8-10.8)
--- NOTE | 2017-08-02 07:15 | NUR ---
Bedside report received from FABIOLA Paulboat dock operatormaintenance director.
--- NOTE | 2017-08-02 07:25 | NUR ---
REPORT GIVEN TO WILLIAN HICKS FOR CONTINUATION OF CARE, PT SLEEP EASY TO AWAKE, NO S/S OF RES/. DISTRESS,NO SOB. SOP2 96%.
[2017-08-02] MEDS: BLOOD GLUCOSE MONITORING 1 DEV DEV FS SCH ×3 (08:30→20:57)
--- NOTE | 2017-08-02 08:48 | NUR ---
PT PLACED ON CPAP 5 PS 10 WILL CONTINUE TO MONITOR.
[2017-08-02] MEDS: INSULIN DETEMIR 100 UNITS/ML 10 ML VIAL SUBQ SCH (09:00)
[2017-08-02] MEDS: NIFEdipine 60 MG TABER PO SCH (09:14)
[2017-08-02] MEDS: PANTOPRAZOLE 40 MG INJ VIAL IVP SCH (09:18)
[2017-08-02] MEDS: ENOXAPARIN 30 MG/0.3 ML SYR SUBQ SCH (09:31)
--- NOTE | 2017-08-02 10:00 | NUR ---
Contacted Dr. Lou regarding cardiac meds, CPAP trial & respiratory status, magnesium level, blood sugar levels, Orders received and entered. Ok to extubate patient. RT notified.
--- NOTE | 2017-08-02 10:22 | NUR ---
SPOKE TO UPDATED PHYSICIAN ON PT STATUS AND WEANING PARAMETERS. PHYSICIAN REQUESTS FOR PT TO BE EXTUBATED AT THIS TIME. RSBI 31, VT 400-460, NIF-16, VC 426, AWARE OF WEANING PARAMETERS.
[2017-08-02] MEDS ORDERED: MAG SULF 2000 MG/WATER PREMIX 100 ML IV SCH (10:30)
[2017-08-02] MEDS ORDERED: ATENOLOL 50 MG TAB PO SCH (10:30)
--- NOTE | 2017-08-02 10:30 | NUR ---
Extubated, pt tolerated well, c/o nausea, zofran administered with resolution of nausea. Pt c/o tinnitus in left ear and requested cotton ball. Spoke with ID doctor, ariel to put a cotton ball. Pt needs ENT consult for tinnitus. Addendum: 08/02/17 at 1804 by Agency 04 FABIOLA RN cotton ball placed in left ear per pt request
--- NOTE | 2017-08-02 10:45 | NUR ---
Dr. Oneil and Dr. Lou arrived on floor shortly after extubation to assess patient.
--- NOTE | 2017-08-02 10:46 | NUR ---
PT EXTUBATED WITH NURSE BEDSIDE. PT PLACED ON 4L NC. PT TOLERATING WELL AT THIS TIME. NO STRIDOR HEARD ON AUSCULTATION. WILL CONTINUE TO MONITOR.
[2017-08-02] MEDS: ONDANSETRON 4 MG/2 ML VIAL IV PRN (10:54)
[2017-08-02] MEDS ORDERED: MAG SULF 2000 MG/WATER PREMIX 50 ML IV ONE (11:05)
[2017-08-02] MEDS ORDERED: VANCOMYCIN 1GM/DEXT 5% PREMIX 200 ML IV SCH (12:00)
--- NOTE | 2017-08-02 16:51 | NUR ---
PER DR. ELMORE AND SULTANA JUNIOR TO TRANSFER PT TO TELEMETRY.
--- NOTE | 2017-08-02 17:00 | NUR ---
Report given to Srinath, nurse on tele who will take over care of this patient
--- NOTE | 2017-08-02 18:25 | NUR ---
RECEIVED FROM ICU VIA AVdirectRNEY. AWAKE, ALERT, AND ORIENTED X4. SPEECH CLEAR. NO C/O PAIN. NO SOB, NOTED. KEEP COMFORTABLE ON BED. FALL PRECAUTION APPLIED. CALL LIGHT WITHIN REACH.
--- NOTE | 2017-08-02 18:25 | NUR ---
KUB showed ileus, Dr Oneil notified. orders received. Report updated to tele nurse.
[2017-08-02] MEDS: DEXT 5% / NACL 0.45% 1,000 ML IV SCH (18:56)
--- NOTE | 2017-08-02 19:05 | NUR ---
BEDSIDE REPORT GIVEN TO MEKHI BOWDEN. IVF INFUSING WELL. IN STABLE CONDITION. FAMILY MEMBERS ON BEDSIDE.
--- NOTE | 2017-08-02 19:06 | NUR ---
RECEIVED REPORT FROM AM NURSE. PT IS AOX4, ABLE TO MAKE NEEDS KNOWN. WITH FAMILY AT BEDSIDE. ON O2 VIA NC AT 4 L , WELL TOLERATED BY PATIENT. LUNGS ARE CLEAR. NO COMPLAINTS OF PAIN AT THIS TIME. WITH AN IV TO THE LEFT AC, INTACT AND PATENT. BOTH HAND EDEMA NOTED. WITH DEWEY CATHETER IN PLACE DRAINING TO YELLOW URINE. ON TELE MONITORING. ORIENTED PATIENT TO THE UNIT, VERBALIZED UNDERSTANDING. WILL CONTINUE TO MONITOR. ALL NEEDS ATTENDED. CALL LIGHT WITHIN REACH. SAFETY CHECKS IN PLACE.
[2017-08-02] MEDS ORDERED: ALBUTEROL SULFATE/IPRATROPIU 3 ML SOL IH PRN (19:40)
[2017-08-02] MEDS: SIMVASTATIN 20 MG TAB PO SCH (21:05)
--- NOTE | 2017-08-02 21:05 | NUR ---
DUE MEDS GIVEN, WELL TOLERATED BY PATIENT. BLOOD SUGAR OF 135, NO INSULIN COVERAGE NEEDED. WILL CONTINUE TO MONITOR. ALL NEEDS ATTENDED. CALL LIGHT WITHIN REACH. SAFETY CHECKS IN PLACE. Addendum: 08/02/17 at 2300 by Meaghan Rossi RN BLOOD SUGAR OF 139
[2017-08-03] VITALS: BP 150/50
--- NOTE | 2017-08-03 | NUR ---
VITAL SIGNS STABLE. NO S/S OF DISTRESS. NO COMPLAINTS OF PAIN. WILL CONTINUE TO MONITOR FOR ANY CHANGES.
[2017-08-03] MEDS: ALBUTEROL SULFATE/IPRATROPIU 3 ML SOL IH SCH ×4 (01:31→19:25)
--- NOTE | 2017-08-03 02:02 | NUR ---
PATIENT RESTING IN BED. NO S/S OF DISTRESS. WILL CONTINUE TO MONITOR. CALL LIGHT WITHIN REACH.
[2017-08-03 04:00] VITALS: BP 149/50
--- NOTE | 2017-08-03 04:00 | NUR ---
VITALS STABLE. NO S/S OF DISTRESS. NO COMPLAINTS OF PAIN. WILL CONTINUE TO MONITOR. CALL LIGHT WITHIN REACH.
[2017-08-03] MEDS: PIPER/TAZO 2.25GM/D5W PREMIX 50 ML IV SCH ×3 (04:45→21:09)
--- NOTE | 2017-08-03 04:45 | NUR ---
DUE MEDS GIVEN. WILL CONTINUE TO MONITOR FOR ANY CHANGES.
[2017-08-03] MEDS: DEXT 5% / NACL 0.45% 1,000 ML IV SCH ×3 (05:14→18:51)
--- NOTE | 2017-08-03 06:00 | NUR ---
X-RAY OF THE ABDOMEN IS BEING TAKEN.
[2017-08-03] MEDS: INSULIN LISPRO SLIDING SCALE 100 UNITS/ML VIAL SUBQ PRN ×4 (06:02→21:16)
--- NOTE | 2017-08-03 06:20 | NUR ---
CHECKED BLOOD SUGAR, 191. HUMALOG INSULIN COVERAGE WAS GIVEN, 2 UNITS.
[2017-08-03] MEDS: BLOOD GLUCOSE MONITORING 1 DEV DEV FS SCH ×4 (06:47→21:11)
[2017-08-03 06:51] LABS: ALBUMIN 2.4 g/dL (3.4-5.0); ANION GAP 14.7 (8-16); CARBON DIOXIDE 25.7 mmol/L (21-32); CREATININE 2.9 mg/dL (0.6-1.3); MAGNESIUM 2.1 mg/dL (1.8-2.4); PHOSPHORUS 3.8 mg/dL (2.5-4.9); POTASSIUM 3.4 mmol/L (3.5-5.1); TOTAL BILIRUBIN 0.5 mg/dL (0.0-1.0)
[2017-08-03 06:56] LABS: HEMATOCRIT 26.5 % (36-48); HEMOGLOBIN 8.4 g/dL (12.0-16.0); MEAN CORPUSCULAR HEMOGLOBIN 28 pg (27-31); MEAN CORPUSCULAR HGB CONC 32 g/dL (33-37); MEAN CORPUSCULAR VOLUME 89 fL (80-94); PLATELET COUNT (AUTO) 299 K/uL (140-450); RED BLOOD CELL COUNT(AUTO) 2.97 MIL/uL (4.20-5.40); RED CELL DISTRIBUTION WIDTH 14.5 % (11.6-13.7); WHITE BLOOD COUNT (AUTO) 12.6 K/uL (4.8-10.8)
--- NOTE | 2017-08-03 07:04 | NUR ---
ENDORSED TO AM SHIFT NURSE FOR CONTINUITY OF CARE, IN STABLE CONDITION.
--- NOTE | 2017-08-03 07:04 | NUR ---
ASSUMED CONTINUITY OF CARE. NO SIGNS AND SYMPTOMS OF ACUTE DISTRESS NOTED. INITIAL ASSESSMENT DONE. FAMILIARIZED WITH SURROUNDINGS. EXPLAINED DIAGNOSIS, PLAN OF CARE, PAIN MANAGEMENT TEACHING, INCISION CARE, USE OF CALL LIGHT/BED/TV/BATHROOM. VERBALIZED UNDERSTANDING. FALL PRECAUTION APPLIED. CALL LIGHT WITHIN REACH.
--- NOTE | 2017-08-03 07:25 | NUR ---
-ARACELI CAME FOR PT. BREATHING TREATMENT.
--- NOTE | 2017-08-03 07:26 | NUR ---
Patient's Plan of Care was discussed and reviewed with RESOURCE PARAPROFESSIONAL: GLENN.
[2017-08-03 08:00] VITALS: BP 149/62
[2017-08-03 08:17] LABS: EOSINOPHILS % (MANUAL) 1 % (0-4); LYMPHOCYTES % (MANUAL) 10 % (20-46); MONOCYTES % (MANUAL) 3 % (5-12)
--- NOTE | 2017-08-03 08:20 | NUR ---
PAGED YANELI WRIGHT REGARDING ORDER VERIFICATION OF PT. NPO STATUS. LEFT CALL BACK NUMBER.
--- NOTE | 2017-08-03 08:24 | NUR ---
YANELI WRIGHT CALLED BACK, VERIFIED ORDER OF PT. NPO. PER YANELI WRIGHT PT. NPO EXCEPT MEDICINE, READ BACK AND VERIFIED. INFORMED CHARGE NURSE AARON BOWDEN.
[2017-08-03] MEDS: INSULIN DETEMIR 100 UNITS/ML 10 ML VIAL SUBQ SCH (09:00)
[2017-08-03] MEDS: PANTOPRAZOLE 40 MG INJ VIAL IVP SCH (09:01)
[2017-08-03] MEDS: LACTOBACILLUS RHAMNOSUS GG 1 EACH CAP PO SCH (09:11)
[2017-08-03] MEDS: ATENOLOL 50 MG TAB PO SCH (09:12)
[2017-08-03] MEDS: ENOXAPARIN 30 MG/0.3 ML SYR SUBQ SCH (09:14)
[2017-08-03 12:00] VITALS: BP 153/62
--- NOTE | 2017-08-03 12:20 | NUR ---
DR. CUELLAR, YANELI CAME, SEEN PT., CHECKED PT. CHART, AND INFORMED OF PT. VS AT 1200 TEMP 98.9, BP 153/62, HR 60, RESP 18, O2 SAT 94% AT 4L/MIN VIA NC. NO C/O PAIN. NO ORDER RECEIVED FOR HIGH BP.
[2017-08-03] MEDS ORDERED: POTASSIUM CHLORIDE 10 MEQ TABER PO SCH ×2 (12:45→18:50)
[2017-08-03] MEDS ORDERED: POTASSIUM CHLORIDE 20% 40 MEQ/15 ML UDC PO SCH (13:15)
--- NOTE | 2017-08-03 15:35 | NUR ---
D/C DEWEY CATHETER PER DR. RENALDO ALEXIS WITH ASSISTANCE FROM YASMINE BUTLER. TOLERATED WELL.
[2017-08-03 16:00] VITALS: BP 146/65
--- NOTE | 2017-08-03 18:43 | NUR ---
VERIFIED WITH ANGELICA GARCIA WHO WAS AT THE [facility] NURSE STATION AT THIS TIME ABOUT POTASSIUM 40 ME PO ORDER. PER ANGELICA GARCIA OK TO GIVE ANOTHER DOSE OF POTASSIUM DUE TO PT. SIZE. INFORMED CHARGE NURSE AARON BOWDEN.
--- NOTE | 2017-08-03 19:11 | NUR ---
BEDSIDE REPORT GIVEN TO MEKHI BOWDEN. IVF INFUSING WELL. IN STABLE CONDITION.
--- NOTE | 2017-08-03 19:12 | NUR ---
RECEIVED REPORT FROM AM NURSE. PT IS AOX4 ABLE TO MAKE NEEDS KNOWN. NO SOB NOTED. NO COMPLAINTS OF PAIN AT THIS TIME. WITH AN IV TO THE LEFT AC, INTACT AND PATENT. BILATERAL HAND EDEMA NOTED. ON O2 VIA NC AT 4 L, WELL TOLERATED BY PATIENT. REORIENTED PATIENT TO THE UNIT, VERBALIZED UNDERSTANDING. WILL CONTINUE TO MONITOR. ALL NEES ATTENDED. CALL LIGHT WITHIN REACH. SAFETY CHECKS IN PLACE.
--- NOTE | 2017-08-03 19:29 | NUR ---
1924 MEDICINE DUO NEB FOR HHNTX WOULD NOT SCAN. HAD TO USE ADMINISTER.. ALSO PLACED PT ON 5L OXYMIZER. PT SATS ON 4LNC WAS 90%
[2017-08-03 20:00] VITALS: BP 141/69
[2017-08-03] MEDS: SIMVASTATIN 20 MG TAB PO SCH (21:09)
--- NOTE | 2017-08-03 21:11 | NUR ---
DUE MEDS GIVEN. WELL TOLERATED BY PATIENT. WILL CONTINUE TO MONITOR FOR ANY CHANGES.
[2017-08-04] VITALS (8 sets, daily range): BP systolic 0–155; BP diastolic 0–70
--- NOTE | 2017-08-04 | NUR ---
VITALS STABLE. NO S/S OF DISTRESS. NO COMPLAINTS OF PAIN. WILL CONTINUE TO MONITOR FOR ANY CHANGES.
[2017-08-04] MEDS: LORazepam 2 MG/ML VIAL IVP PRN (00:08)
[2017-08-04] MEDS: ALBUTEROL SULFATE/IPRATROPIU 3 ML SOL IH SCH ×4 (01:14→19:10)
--- NOTE | 2017-08-04 01:35 | NUR ---
PAGED DR. CUELLAR, AWAITING CALL BACK.
--- NOTE | 2017-08-04 01:47 | NUR ---
PAGED DR. YANELI CUELLAR FOR A SECOND TIME. AWAITING CALL BACK.
--- NOTE | 2017-08-04 01:50 | NUR ---
0115 PT GIVEN HHNTX.. MEDICINE WOULD NOT SCAN. PT HAS SOB.. RN CALLING DOCTOR POLO
[2017-08-04] MEDS ORDERED: FUROSEMIDE 20 MG/2 ML VIAL IVP SCH (02:10)
--- NOTE | 2017-08-04 02:21 | NUR ---
CALLED DR. PLASCENCIA IN REGARDS TO PT'S CONDITION. GAVE AN ORDER OF AN ABG, BIPAP, AND LASIX 5 MG. NOTED AND CARRIED OUT.
[2017-08-04] MEDS ORDERED: FUROSEMIDE 20 MG/2 ML VIAL IVP ONE (02:22)
--- NOTE | 2017-08-04 02:33 | NUR ---
0220 PLACED PT ON BIPAP //RR14 FIO2 40% PT HAS SOB. ABG WAS DRAWN
[2017-08-04] MEDS: PIPER/TAZO 2.25GM/D5W PREMIX 50 ML IV SCH ×3 (04:36→21:14)
--- NOTE | 2017-08-04 05:00 | NUR ---
CHARGE NURSE CALLED DR. YANELI CUELLAR TO INFORM HIM ABOUT THE BIPAP AND FOR REINSERTION OF A DEWEY CATHETER. NOTED AND CARRIED OUT. Addendum: 08/04/17 at 0628 by Meaghan Rossi RN TOLD HIM PATIENT HAD NO URINE OUTPUT DESPITE THE LASIX.
--- NOTE | 2017-08-04 05:30 | NUR ---
INSERTED A DEWEY CATHETER, URINE OUTPUT SEEN.
[2017-08-04] MEDS: INSULIN LISPRO SLIDING SCALE 100 UNITS/ML VIAL SUBQ PRN ×4 (06:03→21:23)
[2017-08-04 06:13] LABS: BASOPHILS # (AUTO) 0.1 K/uL (0.00-0.22); BASOPHILS % (AUTO) 0.7 % (0.0-2.0); EOSINOPHILS # (AUTO) 0.2 K/uL (0-0.4); EOSINOPHILS % (AUTO) 1.3 % (0.0-4.0); HEMATOCRIT 24.2 % (36-48); HEMOGLOBIN 7.8 g/dL (12.0-16.0); LYMPHOCYTES # (AUTO) 1.2 K/uL (2.5-16.5); LYMPHOCYTES % (AUTO) 9.8 % (20.5-51.1); MEAN CORPUSCULAR HEMOGLOBIN 29 pg (27-31); MEAN CORPUSCULAR HGB CONC 32 g/dL (33-37); MEAN CORPUSCULAR VOLUME 89 fL (80-94); MONOCYTES % (AUTO) 8.2 % (1.7-9.3); NEUTROPHILS # (AUTO) 9.7 K/uL (1.8-7.7); PLATELET COUNT (AUTO) 294 K/uL (140-450); RED BLOOD CELL COUNT(AUTO) 2.71 MIL/uL (4.20-5.40); RED CELL DISTRIBUTION WIDTH 14.2 % (11.6-13.7); WHITE BLOOD COUNT (AUTO) 12.2 K/uL (4.8-10.8)
[2017-08-04 06:16] LABS: ALBUMIN 2.2 g/dL (3.4-5.0); ANION GAP 12.8 (8-16); CARBON DIOXIDE 26.4 mmol/L (21-32); CREATININE 2.8 mg/dL (0.6-1.3); PHOSPHORUS 2.6 mg/dL (2.5-4.9); POTASSIUM 4.2 mmol/L (3.5-5.1); TOTAL BILIRUBIN 0.4 mg/dL (0.0-1.0)
[2017-08-04] MEDS: BLOOD GLUCOSE MONITORING 1 DEV DEV FS SCH ×4 (06:35→21:22)
--- NOTE | 2017-08-04 06:36 | NUR ---
CHECKED BLOOD SUGAR OF 271, INSULIN COVERAGE GIVEN.
--- NOTE | 2017-08-04 07:10 | NUR ---
ENDORSED TO AM SHIFT NURSE FOR CONTINUITY OF CARE, IN STABLE CONDITION.
--- NOTE | 2017-08-04 07:15 | NUR ---
RECEIVED ON A Cliptone V60 BIPAP PLUGGED INTO RED OUTLET TOLERATING WELL TO A LARGE FACIAL MASK SECURED WITH HEAD STRAP HOB GREATER THAN 30 DEGREES LOC ASLEEP RESTING WELL RESPONSIVE WITH MOVEMENT BREATH SOUNDS RHONCHI BILATERAL WITH GOOD CHEST RISE
--- NOTE | 2017-08-04 08:00 | NUR ---
RECEIVED PT, PT SLEEPING, EASY TO AROUSE, ON BIPAP, NO DISTRESS NOTED, IV L AC 20G RUNNING D51/2NS @60ML/HR, DEWEY IN PLACE DRAINING 300ML YELLOW URINE, DRESSING CLEAN DRY AND INTACT, CALL LIGHT WITHIN REACH, WILL CONTINUE TO MONITOR.
--- NOTE | 2017-08-04 09:27 | NUR ---
CM NOTE CONCURRENT REVIEW FAXED TO ROSALINDA DORAN [phone] CM KATEY MEDINA EXT [phone]
[2017-08-04] MEDS: ATENOLOL 50 MG TAB PO SCH (09:56)
[2017-08-04] MEDS: PANTOPRAZOLE 40 MG INJ VIAL IVP SCH (09:56)
[2017-08-04] MEDS: LACTOBACILLUS RHAMNOSUS GG 1 EACH CAP PO SCH (09:56)
[2017-08-04] MEDS: INSULIN DETEMIR 100 UNITS/ML 10 ML VIAL SUBQ SCH (09:58)
[2017-08-04] MEDS: ENOXAPARIN 30 MG/0.3 ML SYR SUBQ SCH (09:58)
--- NOTE | 2017-08-04 10:00 | NUR ---
AWAKE AND ALERT RESPONSIVE TO SALES LEDGER ADMINISTRATOR AND RN VERBAL COMMANDS PATIENT STATES "I WANT TO EAT" PATIENT TAKEN OFF BIPAP PLACED ON SUPPLEMENTAL OXYGEN AT 5 LPM VIA OXYMIZER OROPHARYNX SUCTION FOR SMALL SCATTERED THICK YELLOW SECRETIONS BREATH SOUNDS DECREASED BILATERAL WITH GOOD CHEST RISE AND AERATION THROUGHOUT SALES LEDGER ADMINISTRATOR TO MONITOR
--- NOTE | 2017-08-04 10:10 | NUR ---
SATURATION 95% ON SUPPLEMENTAL OXYGEN AT 5LPM VIA OXYMIZER HR 63 RR 24 PATIENT WITH AM MEAL AT THIS TIME
--- NOTE | 2017-08-04 10:10 | NUR ---
PT RESTING, NO DISTRESS NOTED, RT BY BEDSIDE, CALL LIGHT WITHIN REACH, WILL CONTINUE TO MONITOR.
--- NOTE | 2017-08-04 10:26 | NUR ---
AWAKE AND ALERT SKIN TONE PINK HFW POSITION AYESHA DAUGHTER IN LAW TALENT BUYER PATIENT STATES THAT SHE IS SLIGHTLY SOB ASSESSMENT DONE HHN PRN THERAPY GIVEN AT THIS TIME ENCOURAGED PATIENT FOR DEEP BREATHING AND COUGH DURING THERAPY OROPHARYNX SUCTION DURING AND POST THERAPY FOR LARGE THIN PALE YELLOW SECRETIONS TITRATED FIO2 TO 4.5 LPM VOA OXYMIZER FERNANDA/RN AT BEDSIDE AND AWARE [facility] V60 AT BEDSIDE
[2017-08-04] MEDS ORDERED: VANCOMYCIN 1GM/DEXT 5% PREMIX 200 ML IV SCH (11:00)
--- NOTE | 2017-08-04 12:22 | NUR ---
08/04/17 RD FOLLOW-UP ASSESSMENT COMPLETED PLEASE REFER TO NUTRITION ASSESSMENT UNDER CARE ACTIVITY FOR ESTIMATED NUTRITIONAL NEEDS. 1. CONTINUE FULL LIQUID DIET, ADVANCE TOLERATED TO 75G CONSISTENT CARBOHYDRATE DIET 2. RD TO FOLLOW-UP 3-5 DAYS, MODERATE RISK PATRICIA VACA, IVONNE
--- NOTE | 2017-08-04 12:50 | NUR ---
PT RESTING, NO DISTRESS NOTED, FAMILY BY BEDSIDE, CALL LIGHT WITHIN REACH, WILL CONTINUE TO MONITOR.
--- NOTE | 2017-08-04 13:49 | NUR ---
ASLEEP RESTING WELL SATURATION 97% ON SUPPLEMENTAL OXYGEN AT 4.5 LPM VIA OXYMIZER POST HHN THERAPY TITRATED FIO2 TO 4 LPM SUN/RN NOTIFIED ENCOURAGED PATIENT FOR DEEP BREATHING AND COUGH DURING THERAPY STRONG PRODUCTIVE COUGH OROPHARYNX SUCTION FOR SMALL THIN PALE YELLOW SECRETIONS [facility] V60 BIPAP AT BEDSIDE
--- NOTE | 2017-08-04 14:30 | NUR ---
FAMILY AT BEDSIDE. NO DISTRESS NOTED IN PT. CALL LIGHT WITHIN REACH. WILL CONTINUE TO MONITOR.
--- NOTE | 2017-08-04 16:00 | NUR ---
VS STABLE STABLE. CALL LIGHT WITHIN REACH. WILL CONTINUE TO MONITOR.
[2017-08-04] MEDS: FUROSEMIDE 40 MG/4 ML VIAL IVP SCH (17:06)
--- NOTE | 2017-08-04 18:00 | NUR ---
FAMILY IS HELPING FEED PT. PT IS TOLERATING WELL. CALL LIGHT WITHIN REACH. WILL CONTINUE TO MONITOR.
--- NOTE | 2017-08-04 19:20 | NUR ---
ENDORSE PT TO NIGHT NURSE, PT RESTING, BREATHING TREATMENT IN PROGRESS, NO DISTRESS NOTED.
--- NOTE | 2017-08-04 19:35 | NUR ---
RECEIVED PT IN STABLE CONDITION FROM AM NURSE. AWAKE, ALERT AND ORIENTEDX3-4. WITH O2 4L BY OXYMIZER, O2 SAT 97%, HAS INTERMITTENT PRODUCTIVE COUGH . ON TELEMETRY MONITORING-SR. BEDREST DUE TO GEN WEAKNESS. HAS PITTING EDEMA 1+ ON BOTH BUE AND BLE . HL ON LT AC #20. SCD ON BLE. DEWEY CATH TO GRAVITY WITH CLEAR YELLOW URINE. ABDOMEN WITH X3 SMALL DRESSING ON RT LOWER ABDOMEN. S/P LPA APPY , NO C/O ANY PAIN NOTED. CALL LIGHT PLACED WITHIN EASY REACH. FREQUENT ROUNDS NEEDED. BED ON LOW POSITION. SIDE RAILS UP X2. WILL CONTINUE TO MONITOR.
--- NOTE | 2017-08-04 21:00 | NUR ---
REPOSITIONED FOR COMFORT TO LT SIDE. NO SOB NOR DISCOMFORT NOTED.
[2017-08-04] MEDS: SIMVASTATIN 20 MG TAB PO SCH (21:14)
--- NOTE | 2017-08-04 21:23 | NUR ---
BLOOD SUGAR WAS CHECKED RESULT 165. INSULIN COVERAGE GIVEN SUB Q. WILL CONTINUE TO MONITOR.
--- NOTE | 2017-08-04 23:00 | NUR ---
TURNED TO RT SIDE THIS TIME. NO S/S OF ANY DISTRESS NOT PAIN NOTED. O2 SAT 08%.
[2017-08-05] VITALS: BP 149/74
--- NOTE | 2017-08-05 00:30 | NUR ---
IV ACCESS ON THE LT AC, INFILTRATED. DISCONTINUED. A NEW IV ACCESS STARTED BY KYM CURRIE NURSE ON THE RT HAND G#20,CLEAR AND PATENT.
--- NOTE | 2017-08-05 01:30 | NUR ---
PT ASLEEP. WITH NO ACUTE DISTRESS NOTED. O2 SAT 965 0N O24L OXYMIZER. WILL CONTINUE TO MONITOR. Addendum: 08/05/17 at 0349 by Consuelo Bhandari RN O2 SAT 96%
[2017-08-05] MEDS: ALBUTEROL SULFATE/IPRATROPIU 3 ML SOL IH SCH ×4 (01:45→19:12)
[2017-08-05] MEDS: BLOOD GLUCOSE MONITORING 1 DEV DEV FS SCH ×5 (03:39→21:33)
--- NOTE | 2017-08-05 03:40 | NUR ---
PT CALLED @0338 AND SAID SHE FEELS HOT AND THIRSTY. AND SAID HER BLOOD SUGAR MIGHT BE LOW. SO IT WAS CHECKED @0339 BS RESULT ONLY 34. PT IS AWAKE,ALERT AND ORIENTED. DEXTROSE 50 1 AMPULE GIVEN IVP ORDERED @0340. ALSO HAD SOME JUICE. WILL RECHECK BLOOD SUGAR IN 10 -15 MINUTES.
--- NOTE | 2017-08-05 04:00 | NUR ---
PT SAID SHE FEELS BETTER. BLOOD SUGAR WAS RECHECKED RESULT 131 . WILL CONTINUE TO MONITOR.
[2017-08-05 04:32] VITALS: BP 156/72
[2017-08-05] MEDS: PIPER/TAZO 2.25GM/D5W PREMIX 50 ML IV SCH ×3 (04:46→21:04)
--- NOTE | 2017-08-05 05:15 | NUR ---
WITH OCCASIONAL PRODUCTIVE COUGH, WITH WHITISH THIN PHLEGM IN SCANTY NOTED.
--- NOTE | 2017-08-05 05:21 | NUR ---
HAS BEEN REPOSITIONED AND TURNED TO SIDES FOR COMFORT. DENIES ANY PAIN ON THE POST OP SITE.
[2017-08-05 06:04] LABS: BASOPHILS # (AUTO) 0.1 K/uL (0.00-0.22); BASOPHILS % (AUTO) 0.9 % (0.0-2.0); EOSINOPHILS # (AUTO) 0.3 K/uL (0-0.4); EOSINOPHILS % (AUTO) 2.4 % (0.0-4.0); HEMATOCRIT 25.3 % (36-48); LYMPHOCYTES # (AUTO) 1.5 K/uL (2.5-16.5); LYMPHOCYTES % (AUTO) 13.8 % (20.5-51.1); MEAN CORPUSCULAR HEMOGLOBIN 28 pg (27-31); MEAN CORPUSCULAR HGB CONC 32 g/dL (33-37); MEAN CORPUSCULAR VOLUME 89 fL (80-94); MONOCYTES # (AUTO) 0.7 K/uL (0.8-1.0); MONOCYTES % (AUTO) 6.1 % (1.7-9.3); NEUTROPHILS # (AUTO) 8.2 K/uL (1.8-7.7); NEUTROPHILS % (AUTO) 76.8 % (42.2-75.2); PLATELET COUNT (AUTO) 353 K/uL (140-450); RED BLOOD CELL COUNT(AUTO) 2.84 MIL/uL (4.20-5.40); RED CELL DISTRIBUTION WIDTH 14.5 % (11.6-13.7); WHITE BLOOD COUNT (AUTO) 10.8 K/uL (4.8-10.8)
--- NOTE | 2017-08-05 06:13 | NUR ---
BLOOD SUGAR WAS CHECKED THIS AM RESULT 88. GIVEN SOME APPLE JUICE.
[2017-08-05 06:22] LABS: ANION GAP 9.7 (8-16); CARBON DIOXIDE 29.9 mmol/L (21-32); CREATININE 2.4 mg/dL (0.6-1.3); POTASSIUM 3.6 mmol/L (3.5-5.1)
[2017-08-05 06:27] LABS: MAGNESIUM 1.7 mg/dL (1.8-2.4); PHOSPHORUS 2.8 mg/dL (2.5-4.9)
--- NOTE | 2017-08-05 07:15 | NUR ---
ENDORSED PT IN STABLE CONDITION TO AM NURSE FOR CONTINUITY OF CARE.
--- NOTE | 2017-08-05 07:16 | NUR ---
RECEIVED PT FROM DARRICK RN AT BEDSIDE. PT IS A&OX3. PT HAS IV ON R HAND 20 G SL INTACT. REPOSITIONED PT. PT TOLERATED WELL. PT IS ON OXIMIZER 4L, PT IS ON CONT PULSE OX MONITORING, 02 SAT 96% AT THIS TIME. PT HAS AN INTERMITTENT COUGH, PRODUCTIVE WITH WHITE SPUTUM. CALL LIGHT WITHIN REACH. WILL CONTINUE TO MONITOR.
[2017-08-05 08:00] VITALS: BP 156/70
[2017-08-05] MEDS: PANTOPRAZOLE 40 MG INJ VIAL IVP SCH (08:09)
[2017-08-05] MEDS: LACTOBACILLUS RHAMNOSUS GG 1 EACH CAP PO SCH (08:09)
[2017-08-05] MEDS: FUROSEMIDE 40 MG/4 ML VIAL IVP SCH ×2 (08:09→16:41)
[2017-08-05] MEDS: ENOXAPARIN 30 MG/0.3 ML SYR SUBQ SCH (08:10)
[2017-08-05] MEDS: ATENOLOL 50 MG TAB PO SCH (08:11)
[2017-08-05] MEDS: INSULIN DETEMIR 100 UNITS/ML 10 ML VIAL SUBQ SCH (08:11)
--- NOTE | 2017-08-05 09:08 | NUR ---
PT IS RESTING COMFORTABLY IN BED. NO SIGNS OF DISTRESS NOTED. CALL LIGHT WITHIN REACH. WILL CONTINUE TO MONITOR.
--- NOTE | 2017-08-05 09:14 | NUR ---
CM NOTE CONCURRENT REVIEW FAXED TO ROSALINDA DORAN [phone] CM KATEY MEDINA EXT [phone]
--- NOTE | 2017-08-05 10:34 | NUR ---
FAMILY AT BEDSIDE. PT IN STABLE CONDITION, O2 SAT 96% ON OXIMIZER 4L. CALL LIGHT WITHIN REACH. WILL CONTINUE TO MONITOR.
--- NOTE | 2017-08-05 10:50 | NUR ---
SPOKE TO DR. LEVY ON THE PHONE. DR. LEVY ORDERED TO STOP VANCOMYCIN.
[2017-08-05 12:00] VITALS: BP 149/73
--- NOTE | 2017-08-05 12:30 | NUR ---
VS STABLE. FAMILY AT BEDSIDE. CALL LIGHT WITHIN REACH. WILL CONTINUE TO MONITOR.
[2017-08-05] MEDS ORDERED: MAG SULF 2000 MG/WATER PREMIX 100 ML IV ONE (12:55)
[2017-08-05] MEDS ORDERED: MAG SULF 2000 MG/WATER PREMIX 100 ML IV SCH (13:00)
--- NOTE | 2017-08-05 14:10 | NUR ---
PT REQUESTED TO USE BEDPAN, HAD 1 BM. CALL LIGHT WITHIN REACH. WILL CONTINUE TO MONITOR.
--- NOTE | 2017-08-05 14:20 | NUR ---
DISCONTINUED DEWEY ORDERED. PT TOLERATED WELL. CALL LIGHT WITHIN REACH. WILL CONTINUE TO MONITOR.
--- NOTE | 2017-08-05 15:11 | NUR ---
CM NOTE *LATE ENTRY 10:30 SPOKE WITH PATIENT'S [id number] AYESHA McnairAlvaro WHITLEY WHO SAID THAT SHE IS AGREEABLE FOR THE PATIENT TO GO TO A SNF IF THE PATIENT WILL NEED IT AT THE TIME OF DISCHARGE.
[2017-08-05 16:00] VITALS: BP 161/68
--- NOTE | 2017-08-05 16:50 | NUR ---
PT VOIDED. TOLERATED WELL. CALL LIGHT WITHIN REACH. WILL CONTINUE TO MONITOR.
--- NOTE | 2017-08-05 17:42 | NUR ---
PT VOIDED AGAIN, SOME ON THE PAD, PROVIDED BEDPAN, VOIDED SOME MORE. CALL LIGHT WITHIN REACH. WILL CONTINUE TO MONITOR.
[2017-08-05] MEDS: INSULIN LISPRO SLIDING SCALE 100 UNITS/ML VIAL SUBQ PRN ×2 (17:47→21:35)
--- NOTE | 2017-08-05 19:01 | NUR ---
DECREASED N/C FROM 4LPM TO 3LPM, HR-55, SAO2-94% RR-20BPM, BS CLEAR BUT DIMINISHED AT BASES. DUONEB HHN TREATMENT ALSO GIVEN. NO DISTRESS NOTED
--- NOTE | 2017-08-05 19:15 | NUR ---
ENDORSED CARE OF PT TO ACCOUNT CONTACT ASSOCIATE NURSE AT BEDSIDE. PT IN STABLE CONDITION.
--- NOTE | 2017-08-05 19:16 | NUR ---
RECD. RESTING IN BED, AWAKE, A/OX3. RESPIRATION EVEN AND UNLABORED. LUNG SOUNDS DIMINISHED ON 02 AT 3 LITERS VIA N/C, SATURATING 95-96%. INCISION IN THE ABDOMEN (3) WITH KALLI, ALL DRY AND INTACT. APPEARS WEAK, FRUSTRATED THAT SHE CANNOT CONTROL HER VOIDING, INSTRUCTED TO CALL WHENEVER SHE GETS WET FOR CLEANING. PLAN OF CARE FOR THE SHIFT DISCUSSED. VERBALIZED UNDERSTANDING. DENIES PAIN 0/10.
--- NOTE | 2017-08-05 19:20 | NUR ---
Patient's Plan of Care was discussed and reviewed with LOCK AND DAM EQUIPMENT REPAIRER: SAEED GRIFFIN
[2017-08-05 20:00] VITALS: BP 158/63
[2017-08-05] MEDS: SIMVASTATIN 20 MG TAB PO SCH (21:27)
--- NOTE | 2017-08-05 21:45 | NUR ---
IV INFILTRATED, WILL INSERT NEW IV LINE.
[2017-08-06] VITALS: BP 152/64
[2017-08-06] MEDS: ALBUTEROL SULFATE/IPRATROPIU 3 ML SOL IH SCH ×3 (00:03→14:25)
[2017-08-06] MEDS: HYDROcodone/APAP 5/325 MG 1 TAB TAB PO PRN (00:33)
--- NOTE | 2017-08-06 03:00 | NUR ---
PATIENT IS A HARD STICK. ER NURSES CAME AND PUT NEW IV LINE AT THE LEFT HAND G22.
[2017-08-06 04:00] VITALS: BP 159/64
--- NOTE | 2017-08-06 04:40 | NUR ---
FEELS HOT, REQUESTED BS TO BE CHECKED. BLOOD SUGAR - 182. CLEANSED AND MADE COMFORTABLE IN BED.
[2017-08-06] MEDS: PIPER/TAZO 2.25GM/D5W PREMIX 50 ML IV SCH ×2 (04:42→12:16)
[2017-08-06 05:31] LABS: BASOPHILS # (AUTO) 0.1 K/uL (0.00-0.22); EOSINOPHILS # (AUTO) 0.2 K/uL (0-0.4); EOSINOPHILS % (AUTO) 2.2 % (0.0-4.0); HEMATOCRIT 25.3 % (36-48); HEMOGLOBIN 8.2 g/dL (12.0-16.0); LYMPHOCYTES # (AUTO) 1.6 K/uL (2.5-16.5); LYMPHOCYTES % (AUTO) 16.6 % (20.5-51.1); MEAN CORPUSCULAR HEMOGLOBIN 29 pg (27-31); MEAN CORPUSCULAR HGB CONC 33 g/dL (33-37); MEAN CORPUSCULAR VOLUME 89 fL (80-94); MONOCYTES # (AUTO) 0.6 K/uL (0.8-1.0); MONOCYTES % (AUTO) 6.6 % (1.7-9.3); NEUTROPHILS # (AUTO) 7.3 K/uL (1.8-7.7); NEUTROPHILS % (AUTO) 73.6 % (42.2-75.2); PLATELET COUNT (AUTO) 368 K/uL (140-450); RED BLOOD CELL COUNT(AUTO) 2.85 MIL/uL (4.20-5.40); RED CELL DISTRIBUTION WIDTH 14.7 % (11.6-13.7); WHITE BLOOD COUNT (AUTO) 9.8 K/uL (4.8-10.8)
[2017-08-06 06:01] LABS: ANION GAP 9.1 (8-16); CARBON DIOXIDE 33.5 mmol/L (21-32); CREATININE 2.1 mg/dL (0.6-1.3); POTASSIUM 3.6 mmol/L (3.5-5.1)
[2017-08-06 06:21] LABS: MAGNESIUM 2.1 mg/dL (1.8-2.4); PHOSPHORUS 3.5 mg/dL (2.5-4.9)
[2017-08-06] MEDS: BLOOD GLUCOSE MONITORING 1 DEV DEV FS SCH ×3 (06:37→16:30)
[2017-08-06] MEDS: INSULIN LISPRO SLIDING SCALE 100 UNITS/ML VIAL SUBQ PRN ×3 (06:39→17:43)
--- NOTE | 2017-08-06 07:00 | NUR ---
CONDITION REMAIN STABLE. 02 SAT - 95 -96 % ON 3 LITERS VIA N/C. WILL ENDORSE TO AM NURSE FOR CONTINUITY OF CARE.
--- NOTE | 2017-08-06 07:25 | NUR ---
RECEIVED PT IN BED. AWAKE. ALERT ORIENTED X3. NO SOB NOTED ON O2 AT 2LPM NC. DENIES ANY PAIN OR DISCOMFORT AT THIS TIME. PT ON BEDREST. POSITIVE BOWEL SOUNDS NOTED ON FOUR QUADRANTS. SAFETY PRECAUTION IN PLACE. CALL LIGHT WITHIN REACH.
--- NOTE | 2017-08-06 07:43 | NUR ---
CM NOTE *LATE ENTRY 08/05/17 1545 PER [facility] IN [facility]# [phone], THEY HAVE ACCEPTED THE PATIENT AND PATIENT CAN GO TO [place] WHEN DISCHARGED.
[2017-08-06 08:00] VITALS: BP 151/67
--- NOTE | 2017-08-06 08:48 | NUR ---
CM NOTE CONCURRENT REVIEW FAXED TO ROSALINDA DORAN [phone] CM KATEY MEDINA EXT [phone]
[2017-08-06] MEDS: ATENOLOL 50 MG TAB PO SCH (09:05)
[2017-08-06] MEDS: LACTOBACILLUS RHAMNOSUS GG 1 EACH CAP PO SCH (09:05)
[2017-08-06] MEDS: FUROSEMIDE 40 MG/4 ML VIAL IVP SCH ×2 (09:06→16:11)
[2017-08-06] MEDS: PANTOPRAZOLE 40 MG INJ VIAL IVP SCH (09:06)
[2017-08-06] MEDS: ENOXAPARIN 30 MG/0.3 ML SYR SUBQ SCH (09:09)
--- NOTE | 2017-08-06 10:59 | NUR ---
CM NOTE LEFT SEVERAL MESSAGES TO ROSALINDA MEDINA PH [phone] EXT [phone] AND TO ROSALINDA HERNANDEZ ANTIQUE CLOCKS REPAIRER BOLA MELGAR PH [phone] EXT [phone] TO FOLLOW UP ON THE AUTHORIZATION FOR SNF AND TRANSPORTATION, NO CALL BACK. SPOKE WITH ESTRELLA OSORIO [facility] [phone] WHO SAID THAT SHE WILL GIVE THE ROOM NUMBER ONCE SHE HAS THE AUTHORIZATION NUMBER.
--- NOTE | 2017-08-06 11:12 | NUR ---
ASSESSED ABDOMINAL WOUND S/P LAP APPY. NO DRAINAGE NOTED. KALLI INTACT. 3 ABDOMINAL WOUNDS NOTED. NO ACTIVE BLEEDING/DRAINAGE NOTED. PHOTO TAKEN, IN TO CHART.
[2017-08-06 11:50] VITALS: BP 145/57
--- NOTE | 2017-08-06 12:30 | NUR ---
AYESHA DAUGHTER IN LAW. CAME TO SEE PT, WITH PT'S SISTER. FILM REPLACEMENT ORDERER WAS ABLE TO SPEAK WITH FAMILY REGARDING TRANSFER TO [facility] AND INSURANCE INFORMATION.
--- NOTE | 2017-08-06 13:25 | NUR ---
CM NOTE RECEIVED CALL FROM ROSALINDA BUSINESS ACCOUNT LEADER YAMILE Sarah PH [phone] EXT [phone] WHO SAID SNF AUTH# [id number]. SPOKE WITH CARROL OF [facility] TEAM PH [phone] WHO SAID FOR [facility] AUTH# [id number]. PER ESTRELLA OF [place] PH (C) [phone], PATIENT CAN GO TO [address], ACCEPTING DR. Elisa CUELLAR, NUMBER TO CALL FOR REPORT PH [phone]. SPOKE WITH CONRAD OF [facility] TO SET UP TRANSPORT, STUDENT UNION CONSULTANT TIME 1700 TODAY ON GURNEY ON 2L O2 NC, GOING TO [facility] [address], ACCEPTING DR. Jeison CUELLAR, NUMBER TO CALL FOR REPORT PH [phone]. CHARGE NURSE TRU, NURSE ARACELI AND PATIENT'S EFNXYRTI-HH-DLS AYESHA PH [phone] AWARE.
--- NOTE | 2017-08-06 14:49 | NUR ---
CALLED [facility] AT [phone], TO GIVE REPORT REGARDING PT TRANSFER, SPOKE WITH BENJAMÍN (NURSE) MADE AWARE OF PT TRANSFER. GOING TO [address], SIDE DOOR MAN TIME BY [facility] AT 5PM.
--- NOTE | 2017-08-06 15:02 | NUR ---
TRIED TO COMPLETION SUPERVISOR TO NOTIFY AYESHA [phone], TO MAKE AWARE OF PT TRANSFER. NO ANSWER. PER FAMILY AT BEDSIDE, AYESHA WILL COME TO SEE PT BEFORE 1600. WILL MAKE AYESHA AWARE WHEN SHE COMES.
[2017-08-06 16:00] VITALS: BP 148/65
--- NOTE | 2017-08-06 16:25 | NUR ---
AYESHA ,GRANDDAUGHTER CAME TO SEE PT. AND MADE AWARE OF DISCHARGE. USED [employer] SAW OFFBEARER SPOKE WITH AUBREY #[phone]. PT MADE AWARE OF PT TRANSFER, DISCHARGE INSTRUCTIONS AND HEALTH TEACHINGS GIVEN AND EXPLAINED TO PT. PT VERBALIZED UNDERSTANDING.
--- NOTE | 2017-08-06 16:46 | NUR ---
PT SIGNED DISCHARGE PAPERS. GRANDDAUGHTER AT BEDSIDE. DENIES ANY PAIN OR DISCOMFORT AT THIS TIME. NO SOB NOTED. MAINTAINED AT 2LPM NC.
--- NOTE | 2017-08-06 17:56 | NUR ---
LEFT A MESSAGE TO DR. MACARIO'S PAGER TO MAKE AWARE OF PT DISCHARGE. AWAITING CALL BACK.
--- NOTE | 2017-08-06 18:35 | NUR ---
THE [facility] CAME TO COLORING ROOM WORKER PT. NAME ARMBAND REMOVED. TELEBOX REMOVED. IV CANNULA REMOVED AND INTACT. PT MAINTAIN ON O2 AT 2LPM NC. PT DENIES ANY PAIN OR DISCOMFORT AT THIS TIME. NO SOB NOTED. PT TRANSFERRED ON STABLE CONDITION.
== END 2017-08-06 18:35 | DRG 853 ==
LOC: MED 11:13 → MTU 15:20 → OBSVTOIN 15:20 → MTU 07-31 09:16 → MIC 07-31 19:30 → MTU 08-02 18:25
PROVIDERS: ADMIT Preventive Medicine Preventive Medicine/Occupational Environmental Medicine; ATTEND Preventive Medicine Preventive Medicine/Occupational Environmental Medicine
PROC: 0W9G4ZZ Drainage of Peritoneal Cavity, Percutaneous Endoscopic Approach (ICD-10-PCS; 2017-07-29)
PROC: 0DTJ4ZZ Resection of Appendix, Percutaneous Endoscopic Approach (ICD-10-PCS; principal; 2017-07-29 17:30)
PROC: 5A12012 Performance of Cardiac Output, Single, Manual (ICD-10-PCS; 2017-07-31)
PROC: 0BH17EZ Insertion of Endotracheal Airway into Trachea, Via Natural or Artificial Opening (ICD-10-PCS; 2017-07-31)
PROC: 5A1945Z Respiratory Ventilation, 24-96 Consecutive Hours (ICD-10-PCS; 2017-07-31)
PROC: 5A09357 Assistance with Respiratory Ventilation, Less than 24 Consecutive Hours, Continuous Positive Airway Pressure (ICD-10-PCS; 2017-08-04)
DX: A41.9 Sepsis, unspecified organism (principal); K35.2 Acute appendicitis with generalized peritonitis; B37.1 Pulmonary candidiasis; E43 Unspecified severe protein-calorie malnutrition; J96.00 Acute respiratory failure, unspecified whether with hypoxia or hypercapnia; N17.9 Acute kidney failure, unspecified; J69.0 Pneumonitis due to inhalation of food and vomit; Z99.11 Dependence on respirator [ventilator] status; I13.0 Hypertensive heart and chronic kidney disease with heart failure and stage 1 through stage 4 chronic kidney disease, or unspecified chronic kidney disease; I46.9 Cardiac arrest, cause unspecified; N18.4 Chronic kidney disease, stage 4 (severe); E87.0 Hyperosmolality and hypernatremia; R74.0 Nonspecific elevation of levels of transaminase and lactic acid dehydrogenase [LDH]; R74.8 Abnormal levels of other serum enzymes; Y95 Nosocomial condition; E11.22 Type 2 diabetes mellitus with diabetic chronic kidney disease; E78.5 Hyperlipidemia, unspecified; H72.92 Unspecified perforation of tympanic membrane, left ear; H66.92 Otitis media, unspecified, left ear; D64.9 Anemia, unspecified; E66.01 Morbid (severe) obesity due to excess calories; E83.42 Hypomagnesemia; E83.51 Hypocalcemia; E83.52 Hypercalcemia; E87.6 Hypokalemia; I50.9 Heart failure, unspecified; E11.65 Type 2 diabetes mellitus with hyperglycemia; Z68.39 Body mass index [BMI] 39.0-39.9, adult; Z87.19 Personal history of other diseases of the digestive system; Z83.3 Family history of diabetes mellitus; Z79.899 Other long term (current) drug therapy; Z79.4 Long term (current) use of insulin
CPT/HCPCS: 31500; 36415; 36600; 71010; 74000; 76700; 80048; 80053; 80202; 81003; 82374; 82550; 82553; 82803; 82948; 83605; 83690; 83735; 84100; 84484; 85025; 85610; 85651; 85730; 86140; 86870; 86886; 86900; 86901; 87040; 87070; 87081; 87205; 88304; 89220; 92950; 93005; 93970; 94002; 94003; 94640; 94660; 96365; 96375; 97110; 97116; 97530; 99285; C9113; J0171; J0330; J1650; J1815; J1885; J1940; J2060; J2270; J2405; J2543; J2704; J3010; J3370; J3475; J3490; J7030; J7060; J7620; Q0092

== ENCOUNTER 2019-06-29 15:25 | Emergency (ER) | payer MEDICARE, OTHER ==
[~2019-06-29] VITALS: Ht 154.9 cm; Wt 89.4 kg
[2019-06-29 15:30] VITALS: BP 125/67
--- NOTE | 2019-06-29 15:43 | NUR ---
WAIT AT [facility], AAOX4
--- NOTE | 2019-06-29 16:00 | NUR ---
PT AMBULATED TO BED 05.
--- NOTE | 2019-06-29 16:10 | NUR ---
PT C/O PRESSURE-LIKE NECK PAIN, NAUSEA, VOMITING AND DIZZINESS X 3 DAYS. DENIES TRAUMA, FEVER, OR DIARRHEA. PT ALSO C/O CHRONIC CONSTIPATION W/ ONE BOWEL MOVEMENT WITHIN THREE DAYS FREQUENCY. PATIENT STATES PAIN OF 8/10 AT THIS TIME; VSS; PATIENT POSITIONED FOR COMFORT; HOB ELEVATED; BEDRAILS UP X1; BED DOWN. ER MD MADE AWARE OF PT STATUS. FAMILY MEMBER IS AT BEDSIDE.
[2019-06-29] MEDS ORDERED: NACL 0.9% 1,000 ML IV SCH (16:21)
[2019-06-29] MEDS ORDERED: ONDANSETRON 4 MG/2 ML VIAL IVP ONE (16:25)
--- NOTE | 2019-06-29 17:05 | NUR ---
ACC CHECK 45MG/DL. DR SHERMAN NOTIFIED. APPLE JUICE, JELLO, AND CRACKERS PROVIDED TO PT.
[2019-06-29 17:08] LABS: BASOPHILS # (AUTO) 0.1 K/uL (0.00-0.22); EOSINOPHILS # (AUTO) 0.1 K/uL (0-0.4); EOSINOPHILS % (AUTO) 1.1 % (0.0-4.0); HEMATOCRIT 34.4 % (36-48); LYMPHOCYTES # (AUTO) 1.8 K/uL (2.5-16.5); LYMPHOCYTES % (AUTO) 25.7 % (20.5-51.1); MEAN CORPUSCULAR HEMOGLOBIN 29 pg (27-31); MEAN CORPUSCULAR HGB CONC 32 g/dL (33-37); MEAN CORPUSCULAR VOLUME 89.9 fL (80-94); MONOCYTES # (AUTO) 0.6 K/uL (0.8-1.0); MONOCYTES % (AUTO) 9.1 % (1.7-9.3); NEUTROPHILS # (AUTO) 4.4 K/uL (1.8-7.7); NEUTROPHILS % (AUTO) 63.1 % (42.2-75.2); PLATELET COUNT (AUTO) 283 K/uL (140-450); RED BLOOD CELL COUNT(AUTO) 3.82 MIL/uL (4.20-5.40); RED CELL DISTRIBUTION WIDTH 14.6 % (11.6-13.7)
[2019-06-29 17:29] LABS: ALBUMIN 3.5 g/dL (3.4-5.0); ASPARTATE AMINOTRANSFERASE 22 U/L (15-37); CARBON DIOXIDE 23.2 mmol/L (21-32); CHLORIDE 101 mmol/L (98-107); GLUCOSE 52 mg/dL (74-106); LIPASE 143 U/L (73-393); SODIUM SERUM 136 mmol/L (136-145); TOTAL BILIRUBIN 0.2 mg/dL (0.0-1.0)
[2019-06-29 17:40] LABS: CREATININE 4.5 mg/dL (0.6-1.3); UREA NITROGEN, BLOOD 76 mg/dL (7-18)
[2019-06-29 17:41] LABS: POTASSIUM 5.2 mmol/L (3.5-5.1)
[2019-06-29] MEDS ORDERED: LOSA50TA66 PO (18:13)
[2019-06-29] MEDS ORDERED: ALLO100T21 PO (18:13)
[2019-06-29] MEDS ORDERED: HYDR100T79 PO (18:13)
[2019-06-29] MEDS ORDERED: METO25TA PO (18:13)
[2019-06-29] MEDS ORDERED: ATOR20TA PO (18:13)
[2019-06-29] MEDS ORDERED: DIT5 PO (18:13)
[2019-06-29] MEDS ORDERED: LEVEMIR SUBQ (18:13)
[2019-06-29] MEDS ORDERED: INSU100S45 SUBQ (18:13)
[2019-06-29] MEDS ORDERED: CETI10TA71 PO (18:13)
[2019-06-29] MEDS ORDERED: HYDR-133 PO (18:13)
[2019-06-29] MEDS ORDERED: ONDA8TAB PO (18:13)
[2019-06-29] MEDS ORDERED: VITD1000 PO (18:13)
[2019-06-29] MEDS ORDERED: FERR325E14 PO (18:13)
[2019-06-29] MEDS ORDERED: PSEU60TA51 PO (18:13)
--- NOTE | 2019-06-29 18:26 | NUR ---
ACC CHECK BLOOD GLUCOSE 123MG/DL. DR. SHERMAN NOTIFIED.
[2019-06-29] MEDS ORDERED: PATIROMER CALCIUM SORBITEX 8.4 GM PKT PO ONE (18:40)
--- NOTE | 2019-06-29 18:50 | NUR ---
DR. SHERMAN IS EVALUATION PT AT BEDSIDE. PT IS CRYING AND DOES NOT WANT TO BE ADMITED.
--- NOTE | 2019-06-29 18:55 | NUR ---
DR. SHERMAN CANCELLED PT'S HOSPITALIZATION ADMITION.
[2019-06-29 19:24] VITALS: BP 145/61
--- NOTE | 2019-06-29 19:24 | NUR ---
Patient discharged with v/s stable. Written and verbal after care instructions given and explained. Patient alert, oriented and verbalized understanding of instructions. Ambulatory with steady gait. All questions addressed prior to discharge. ID band removed. Patient advised to follow up with PMD. Rx of [place] given. Patient educated on indication of medication including possible reaction and side effects. Opportunity to ask questions provided and answered.
== END 2019-06-29 19:25 | disposition home or self-care (01) ==
LOC: MED 15:25
DX: E11.22 Type 2 diabetes mellitus with diabetic chronic kidney disease (principal); I12.9 Hypertensive chronic kidney disease with stage 1 through stage 4 chronic kidney disease, or unspecified chronic kidney disease; N18.9 Chronic kidney disease, unspecified; M54.2 Cervicalgia; E87.5 Hyperkalemia; R11.2 Nausea with vomiting, unspecified; Z79.4 Long term (current) use of insulin; Z79.899 Other long term (current) drug therapy; Z90.49 Acquired absence of other specified parts of digestive tract
CPT/HCPCS: 36415; 70450; 72125; 80053; 82948; 83690; 85025; 93005; 96361; 96374; 99284; J2405; J7030

== ENCOUNTER 2019-06-30 17:47 | Emergency (ER) | payer MEDICARE, OTHER ==
[~2019-06-30] VITALS: Ht 154.9 cm; Wt 84.8 kg
[~2019-06-30 17:47] MED LIST changes: +ALLO100T21 PO; -ATEN50TA2 PO; +ATOR20TA PO; +CETI10TA71 PO; +DIT5 PO; +FERR325E14 PO; +HYDR-133 PO; +HYDR100T79 PO; -INSU100S10 SC; +INSU100S45 SUBQ; -LANTUS SC; +LEVEMIR SUBQ; -LISI-420 PO; +LOSA50TA66 PO; +METO25TA PO; -NIFE60TE5 PO; +ONDA8TAB PO; -POTA10TA PO; +PSEU60TA51 PO; -SIMV20TA6 PO; +VITD1000 PO; -[UNRECOGNIZED DRUG - CODE] PO
[2019-06-30 17:52] VITALS: BP 184/84
[2019-06-30] MEDS ORDERED: CYCLOBENZAPRINE 10 MG TAB PO ONE (19:35)
[2019-06-30] MEDS ORDERED: ONDANSETRON 4 MG/2 ML VIAL IVP ONE (19:35)
[2019-06-30] MEDS ORDERED: KETOROLAC 30 MG/ML VIAL IVP ONE (19:35)
[2019-06-30] MEDS ORDERED: MECLIZINE 25 MG TAB PO ONE (20:00)
[2019-06-30 21:25] VITALS: BP 131/62
== END 2019-06-30 21:25 | disposition home or self-care (01) ==
LOC: MED 17:47
DX: S16.1XXA Strain of muscle, fascia and tendon at neck level, initial encounter (principal); R42 Dizziness and giddiness; E11.9 Type 2 diabetes mellitus without complications; I10 Essential (primary) hypertension; E78.5 Hyperlipidemia, unspecified; Z87.448 Personal history of other diseases of urinary system; Z79.899 Other long term (current) drug therapy; Z79.4 Long term (current) use of insulin; Z79.82 Long term (current) use of aspirin; X58.XXXA Exposure to other specified factors, initial encounter; Y92.89 Other specified places as the place of occurrence of the external cause; Y93.89 Activity, other specified; Y99.8 Other external cause status
CPT/HCPCS: 96374; 96375; 99283; J1885; J2405; J8597

== ENCOUNTER 2019-09-22 05:45 | Emergency (ER) | payer MEDICARE, OTHER ==
[~2019-09-22] VITALS: Ht 160 cm; Wt 99.8 kg
[2019-09-22 05:45] VITALS: BP 161/58
--- NOTE | 2019-09-22 05:45 | NUR ---
PT POLY ALS. TAKEN TO BED 10
--- NOTE | 2019-09-22 06:05 | NUR ---
73 YEAR OLD FEMALE BIBA FOR BS 28. EMS STATES THAT THEY GAVE HER GLUCAGON AND D5W 250ML DURING TRANSPORT. ON ARRIVAL PATIENT BS 150. PATIENT AOX4, GCS 14 (E3). PATIENT BREATHING EVEN AND UNLABORED, RR 12, SPO2 96%. PATIENT LETHARGIC, RESPONDS TO COMMANDS, SPEAKS COHERENTLY. SKIN COOL. BED IN LOWEST POSITION, LOCKED, BED RAIL UPX1. HX - HTN, DM2, THYROID DISEASE, KIDNEY DISEASE.
--- NOTE | 2019-09-22 06:13 | NUR ---
STRAIGHT CATH WITH 15 FR PERFORMED ON PT. 500 CC OF URINE COLLECTED AT THIS TIME. PT TOLERATED WELL.
--- NOTE | 2019-09-22 06:23 | NUR ---
Dr. Dutta examining patient.
[2019-09-22 06:50] VITALS: BP 161/56
--- NOTE | 2019-09-22 06:52 | NUR ---
Patient discharged with v/s stable. Written and verbal after care instructions ABOUT HYPOGLYCEMIA, NAUSEA, VOMITTING, AND URINARY TRACT INFECTIONS given and explained TO DAUGHTER. DAUGHTER verbalized understanding of instructions. PATIENT DISCHARGED BY WHEELCHAIR. All questions addressed prior to discharge. ID band removed. Patient advised to follow up with PMD. Rx of PHENERGEN AND CIPRO given. Patient educated on indication of medication including possible reaction and side effects. Opportunity to ask questions provided and answered.
== END 2019-09-22 06:52 | disposition home or self-care (01) ==
LOC: MED 05:45
DX: E11.649 Type 2 diabetes mellitus with hypoglycemia without coma (principal); R11.2 Nausea with vomiting, unspecified; N39.0 Urinary tract infection, site not specified; Z79.899 Other long term (current) drug therapy; Z79.84 Long term (current) use of oral hypoglycemic drugs; Z79.82 Long term (current) use of aspirin; Z79.4 Long term (current) use of insulin
CPT/HCPCS: 81002; 99283

== ENCOUNTER 2019-09-22 11:47 | Inpatient (IN) | payer MEDICARE, OTHER ==
[~2019-09-22] VITALS: Ht 172.7 cm; Wt 86.2 kg
--- NOTE | 2019-09-22 11:47 | NUR ---
Patient BIBA ALS accompanied by [facility], transferred to bed 10. Dr. Matthews and RN evaluating patient at bedside.
[2019-09-22] MEDS ORDERED: DEXTROSE 50% 50 ML SYR IVP ONE ×2 (11:56→12:15)
[2019-09-22 12:02] VITALS: BP 178/60
[2019-09-22] MEDS ORDERED: NACL 0.9% 1,000 ML IV ONE ×2 (12:15)
[2019-09-22 12:35] LABS: BASOPHILS % (AUTO) 0.3 % (0.0-2.0); EOSINOPHILS % (AUTO) 0.2 % (0.0-4.0); HEMATOCRIT 33.5 % (36-48); HEMOGLOBIN 10.7 g/dL (12.0-16.0); LYMPHOCYTES # (AUTO) 1.8 K/uL (2.5-16.5); LYMPHOCYTES % (AUTO) 16.8 % (20.5-51.1); MEAN CORPUSCULAR HEMOGLOBIN 29 pg (27-31); MEAN CORPUSCULAR HGB CONC 32 g/dL (33-37); MEAN CORPUSCULAR VOLUME 92.5 fL (80-94); MONOCYTES # (AUTO) 0.5 K/uL (0.8-1.0); MONOCYTES % (AUTO) 4.3 % (1.7-9.3); NEUTROPHILS # (AUTO) 8.5 K/uL (1.8-7.7); NEUTROPHILS % (AUTO) 78.4 % (42.2-75.2); PLATELET COUNT (AUTO) 334 K/uL (140-450); RED BLOOD CELL COUNT(AUTO) 3.63 MIL/uL (4.20-5.40); RED CELL DISTRIBUTION WIDTH 14.8 % (11.6-13.7); WHITE BLOOD COUNT (AUTO) 10.8 K/uL (4.8-10.8)
--- NOTE | 2019-09-22 12:39 | NUR ---
PT BIBA TO ED WITH C/O HYPOGLYCEMIA AND HYPOTHERMIA. BG WAS 34. ER MD MADE AWARE. PT WAS PUT ON THE MONITOR AND ER MD AT BEDSIDE. GLUCAGON GIVEN IN THE FIELD. 20G IV STARTED AND DEXTROSE 50 GIVEN. PT IS ALERT TO NAME. EDILBERTO HUGGER APPLIED TO PT. PT POSITIONED FOR COMFORT. HOB ELEVATED, BED RAIL UP X 1. ER MD AWARE OF PT STATUS. NKA HX: UNABLE TO OBTAIN AT THIS TIME RX: UNABLE TO OBTAIN AT THIS TIME.
--- NOTE | 2019-09-22 12:45 | NUR ---
DAUGHTER IN LAW AT BEDSIDE.
[2019-09-22 12:51] LABS: PROTHROMBIN TIME 8.8 secs (10.8-13.4)
--- NOTE | 2019-09-22 12:51 | NUR ---
URINE COLLECTED VIA STRAIGHT CATH AND GIVEN TO LAB
--- NOTE | 2019-09-22 13:06 | NUR ---
X RAY AT BEDSIDE
--- NOTE | 2019-09-22 13:10 | NUR ---
RECTAL TEMP 93.5. EDILBERTO CRUZ INCREASED TEMP.
[2019-09-22 13:15] LABS: ANION GAP 9.9 (8-16); CARBON DIOXIDE 34.3 mmol/L (21-32); CHLORIDE 95 mmol/L (98-107); CREATININE 2.4 mg/dL (0.6-1.3); GLUCOSE 274 mg/dL (74-106); POTASSIUM 4.2 mmol/L (3.5-5.1); SODIUM SERUM 135 mmol/L (136-145)
[2019-09-22 13:16] LABS: UREA NITROGEN, BLOOD 61 mg/dL (7-18)
[2019-09-22 13:20] LABS: ALBUMIN 3.1 g/dL (3.4-5.0); ASPARTATE AMINOTRANSFERASE 26 U/L (15-37); TOTAL BILIRUBIN 0.2 mg/dL (0.0-1.0)
--- NOTE | 2019-09-22 13:27 | NUR ---
Patient appears to be resting comfortably in bed. Bait hugger in place. Patient is on the monitor. Will continue to monitor.
--- NOTE | 2019-09-22 13:58 | NUR ---
DAUGHTER IN LAW: AYESHA
--- NOTE | 2019-09-22 13:59 | NUR ---
DAUGHTER IN LAW AYESHA STATED PAST MEDICAL HX INCLUDES: DM, HTN, HIGH CHOLESTEROL AND KIDNEY PROBLEMS
[2019-09-22 14:05] LABS: FREE T4 (FREE THYROXINE) 0.95 ng/dL (0.76-1.46); THYROID STIMULATING HORMONE 1.52 uIU/mL (0.34-3.74)
[2019-09-22 14:08] LABS: APPEARANCE,URINE CLEAR (CLEAR); BILIRUBIN,URINE NEGATIVE (NEGATIVE); BLOOD, URINE NEGATIVE (NEGATIVE); COLOR,URINE YELLOW (YELLOW); LEUKOCYTE ESTERASE ,URINE NEGATIVE (NEGATIVE); NITRITE, URINE NEGATIVE (NEGATIVE); UGLUCOSE 1+ (NEGATIVE)
[2019-09-22 14:18] LABS: RBC,URINE 0 /HPF (0-5); WBC,URINE 0-5 /HPF (0-5)
--- NOTE | 2019-09-22 14:34 | NUR ---
PT CURRENT MENTAL STATUS: A/OX4 , GCS 15. ABLE TO FOLLOW COMMANDS, CLEAR SPEECH. PER PT RECALLS ARRIVING HOME, VERY COLD, AND BEGUN TO FEEL HUNGRY. PT DOES NOT REMEMBER WHAT HAPPENED AFTERWARDS. PER PT MEDICAL HX OF DM. VSS STABLE, PT ASYMPTOMATIC, BS RECHECKED AND DOCUMENTED, TEMP OBTAINED ORALLY.
--- NOTE | 2019-09-22 15:05 | NUR ---
VINNIE Roper , PT PROVIDED WITH WARM BLANKETS
--- NOTE | 2019-09-22 15:30 | NUR ---
CALLED ADMITTING ABOUT LATEX DIPPER. LATEX DIPPER SAID WE CAN ADMIT UNDER OBERVATIONS FOR NOW UNTIL THEY CALL BACK WITH FURTHER INSTRUCIONS
[2019-09-22 16:50] VITALS: BP 161/42
--- NOTE | 2019-09-22 16:50 | NUR ---
FAMILY TO RETURN WITH MEDICATIONS IN ORDER TO COMPLETE MED REC.
--- NOTE | 2019-09-22 16:50 | NUR ---
Received report from ER nurse. Pt came to unit on a gurney. Pt is in stable condition. No complains of pain reported. Skin intact. Call light in reach.
--- NOTE | 2019-09-22 16:50 | NUR ---
Patient will be admitted to care of DR SOLIZ. Admited to TELE. Will go to room 107B. Belongings list completed. Report to FABIOLA MARAVILLA.
[2019-09-22] MEDS ORDERED: ONDANSETRON 4 MG TAB PO PRN (18:10)
[2019-09-22] MEDS ORDERED: ACETAMINOPHEN 325 MG TAB PO PRN (18:15)
[2019-09-22] MEDS ORDERED: ONDANSETRON 4 MG/2 ML VIAL IVP PRN (18:15)
[2019-09-22] MEDS ORDERED: DEXTROSE 50% 50 ML SYR IVP PRN (18:20)
[2019-09-22] MEDS ORDERED: INSULIN LISPRO SLIDING SCALE 100 UNITS/ML VIAL SUBQ PRN (18:20)
[2019-09-22] MEDS: DEXT 5% / NACL 0.9% 1,000 ML IV SCH (19:35)
--- NOTE | 2019-09-22 19:37 | NUR ---
Shift report given to overnight cashier nurse. Pt is in stable condition. Call light in reach.
[2019-09-22 20:00] VITALS: BP 145/50
[2019-09-22] MEDS ORDERED: INSULIN LANTUS 100 UNITS/ML 10 ML VIAL SUBQ SCH (21:00)
[2019-09-22] MEDS ORDERED: ATORVASTATIN 20 MG TAB PO SCH (21:00)
[2019-09-22] MEDS: BLOOD GLUCOSE MONITORING 1 DEV DEV FS SCH (21:48)
[2019-09-22] MEDS: OXYBUTYNIN 5 MG TAB PO SCH (21:49)
[2019-09-22] MEDS: FERROUS SULFATE 325 MG TABEC PO SCH (21:49)
--- NOTE | 2019-09-22 21:58 | NUR ---
ALL P.O. MEDICATION TAKEN WELL. BLOOD SUGAR CHECK FOR NOW IS 129. NO HUMALOG COVERAGE GIVEN. PT. ASSISTED TO RESTROOM AT THIS TIME. ABLE TO WALK TO RESTROOM INSIDE ROOM. NO COMPLAINTS DONE. MACHINE SIGN WRITER ON STANDBY ASSIST IN CASE SHE NEEDS HELP. CALL LIGHT WITH IN REACH.
--- NOTE | 2019-09-22 23:00 | NUR ---
RECEIVED REPORT FROM OTHER AUTOMOTIVE WELDER NURSE, PHUONG FOR CONTINUITY OF CARE. PT A, A O X 4, AMBULATORY, PT RECEIVED W/O IVF, STILL FOR IV INSERTION. PLACED ON LOW BED. WILL CONTINUE TO MONITOR
--- NOTE | 2019-09-22 23:16 | NUR ---
IV INSERTION DONE WILL START IVF D5NS AT 100 ML HR ORDERED Addendum: 09/23/19 at 0020 by Juli Black RN VASQUEZ
[2019-09-23] VITALS: BP 145/53
--- NOTE | 2019-09-23 00:17 | NUR ---
IV INSERTION DONE BY ED; SEDRICKPS X 1, WITH GOOD BLOOD RETURN, PT TOLERATED PROCEDURE. EXPALAINED THE RISKS AND BENEFITS. PT VERBALIZED UNDERSTANDING Addendum: 09/23/19 at 0020 by Juli Black RN STARTED D5 NS AT 100 ML/HR
--- NOTE | 2019-09-23 01:56 | NUR ---
WENT TO THE BATHROOM, AMBULATORY WITH STANDBY ASSIST WILL CONTINUE TO MONITOR
--- NOTE | 2019-09-23 02:14 | NUR ---
CHECKED ON PATIENT, SLEEPING BUT EASILY AROUSABLE BY VERBAL STIMULI
[2019-09-23] MEDS: DEXT 5% / NACL 0.9% 1,000 ML IV SCH ×2 (04:15→10:19)
[2019-09-23] MEDS: BLOOD GLUCOSE MONITORING 1 DEV DEV FS SCH ×2 (05:16→11:47)
[2019-09-23 06:00] VITALS: BP 142/50
--- NOTE | 2019-09-23 07:04 | NUR ---
PT AWAKE, ALERT ORIENTED X 4, KAZAKH SPEAKING ONLY. PT IN STABLE CONDITION FOR NOW.
--- NOTE | 2019-09-23 07:05 | NUR ---
RECEIVED REPORT FROM RAT FARMER NURSE AI. PT IS AAOX4, NO C/O PAIN AT THIS TIME. IV ON LT HAND 24 GA RUNNING IVF PER ORDER. PT ON TELE MONITOR, VS WITHIN NORMAL LIMITS. RESPIRATIONS EVEN AND UNLABORED ON RA. ABD SOFT, ACTIVE BS, LBM 09/21. SKIN IS INTACT, WARM TO TOUCH. REVIEWED POC WITH PT, PT VERBALIZED UNDERSTANDING.
--- NOTE | 2019-09-23 07:49 | NUR ---
PATIENT HAS BEEN SCREENED AND CATEGORIZED MODERATE NUTRITION RISK. PATIENT WILL BE SEEN WITHIN 3-5 DAYS OF ADMISSION. 09/26/19-09/28/[address]
[2019-09-23 08:00] VITALS: BP 138/58
[2019-09-23] MEDS: FERROUS SULFATE 325 MG TABEC PO SCH (08:09)
[2019-09-23] MEDS: OXYBUTYNIN 5 MG TAB PO SCH (08:10)
--- NOTE | 2019-09-23 08:11 | NUR ---
ADMINISTERED MEDICATIONS PER ORDER, PT VERBALIZED UNDERSTANDING OF INDICATIONS AND POTENTIAL SIDE EFFECTS OF MEDICATIONS. PT HAS NO C/O PAIN AT THIS TIME.
[2019-09-23] MEDS ORDERED: FUROSEMIDE 40 MG TAB PO SCH (09:00)
[2019-09-23] MEDS ORDERED: METOPROLOL 25 MG TAB PO SCH (09:00)
[2019-09-23] MEDS ORDERED: ECOTRIN 81 MG TABEC PO SCH (09:00)
[2019-09-23] MEDS ORDERED: CHOLECALCIFEROL 1,000 IU TAB PO SCH (09:00)
[2019-09-23] MEDS ORDERED: LOSARTAN 50 MG TAB PO SCH (09:00)
[2019-09-23] MEDS ORDERED: ALLOPURINOL 100 MG TAB PO SCH (09:00)
--- NOTE | 2019-09-23 09:30 | NUR ---
PT IS LYING IN BED IN SUPINE POSITION, RESPIRATIONS EVEN AND UNLABORED. NO S/S OF DISTRESS AT THIS TIME.
--- NOTE | 2019-09-23 11:00 | NUR ---
BS AT 274, WILL ADMINISTERED INSULIN PER SLIDING SCALE. PT HAS NO S/S OF HYPERGLYCEMIA.
[2019-09-23 12:00] VITALS: BP 144/50
--- NOTE | 2019-09-23 13:15 | NUR ---
PT WALKING IN HALLWAY WITH IV POLE, NOTED STEADY GAIT. PT HAS NO SIGNS OF DISTRESS.
--- NOTE | 2019-09-23 14:00 | NUR ---
DR. SOLIZ AT BEDSIDE, EXPLAINING TO PT THAT SHE WILL BE DISCHARGED TODAY, INSTRUCTED PT TO KEEP NEUROLOGIST APPOINTMENT ON 10/02, ALL QUESTIONS ANSWERED AND CLARIFIED.
[2019-09-23] MEDS ORDERED: PNEUMOCOCCAL VACCINE 23 MCG/0.5 ML VIAL IMVAC SCH (14:10)
[2019-09-23] MEDS ORDERED: INFLUENZA VACCINE QUAD 0.5 ML SYR IMVAC PRN (14:30)
--- NOTE | 2019-09-23 15:30 | NUR ---
PT HAS BEEN DISCHARGED. ALL PAPERWORK SIGNED, ALL QUESTIONS ANSWERED. ALL BELONGINGS AND PRESCRIPTIONS IN PT POSSESSION. IV DISCONTINUED WITH CANNULA INTACT. WRISTBANDS AND TELE MONITOR REMOVED. PT REFUSED WHEELCHAIR. PT AMBULATED OUT OF UNIT WITH STEADY GAIT, CHARGE NURSE TAMIKA AT SIDE AND [id number] AT SIDE. PT IN STABLE CONDITION. Addendum: 09/23/19 at 1932 by Kimberly Cortez RN [employer] PHONE VP [employer] USED Esequiel MCCLELLAND/#[phone]
== END 2019-09-23 15:30 | disposition home or self-care (01) | DRG 639 ==
LOC: MED 11:47 → MTU 16:03
PROVIDERS: ADMIT Internal Medicine Pulmonary Disease; ATTEND Internal Medicine Pulmonary Disease
DX: E11.649 Type 2 diabetes mellitus with hypoglycemia without coma (principal); E11.22 Type 2 diabetes mellitus with diabetic chronic kidney disease; E78.5 Hyperlipidemia, unspecified; G43.909 Migraine, unspecified, not intractable, without status migrainosus; I12.9 Hypertensive chronic kidney disease with stage 1 through stage 4 chronic kidney disease, or unspecified chronic kidney disease; N18.9 Chronic kidney disease, unspecified; Z79.4 Long term (current) use of insulin
CPT/HCPCS: 36415; 71045; 80053; 81001; 82553; 82948; 83605; 84439; 84443; 85025; 85610; 85730; 87040; 87081; 87086; 96361; 96374; 99285; J1815; J7042; Q0092

== ENCOUNTER 2019-10-15 16:35 | Inpatient (IN) | payer MEDICARE, OTHER ==
[~2019-10-15] VITALS: Ht 157.5 cm; Wt 82.6 kg
[2019-10-15 16:35] VITALS: BP 134/45
--- NOTE | 2019-10-15 16:35 | NUR ---
PT BIBA AND PLACED IN BED 6, DR DAVILA AT BEDSIDE
--- NOTE | 2019-10-15 16:35 | NUR ---
PT BIBA FOR HYPOGLYCEMIA, BS 28, PT CONFUSED, GCS 9, SKIN CLAMY, PUPILS SLUGISH, 2MM. DR DAVILA PLACED IO IN LT TIBIA, 50ML D5O GIVEN. MEDHX:DM RX:INSULIN
--- NOTE | 2019-10-15 16:36 | NUR ---
BLOOS SUGAR 28
--- NOTE | 2019-10-15 16:36 | NUR ---
IO ASCESS ESTABLISHED BY DR DAVILA
--- NOTE | 2019-10-15 16:40 | NUR ---
PT GIVEN ORANGE JUICE AND JELLO TO INCREASE LOW BLOOD SUGAR.
[2019-10-15] MEDS ORDERED: NACL 0.9% 1,000 ML IV ONE ×2 (16:45→18:05)
[2019-10-15] MEDS ORDERED: DEXTROSE 50% 50 ML SYR IVP ONE (16:45)
--- NOTE | 2019-10-15 16:50 | NUR ---
XRAY AT BEDSIDE
[2019-10-15 17:20] LABS: BASOPHILS # (AUTO) 0.1 K/uL (0.00-0.22); BASOPHILS % (AUTO) 0.7 % (0.0-2.0); EOSINOPHILS % (AUTO) 0.7 % (0.0-4.0); HEMOGLOBIN 9.9 g/dL (12.0-16.0); MEAN CORPUSCULAR HEMOGLOBIN 30 pg (27-31); MEAN CORPUSCULAR HGB CONC 32 g/dL (33-37); MONOCYTES # (AUTO) 0.5 K/uL (0.8-1.0); MONOCYTES % (AUTO) 6.3 % (1.7-9.3); NEUTROPHILS # (AUTO) 4.8 K/uL (1.8-7.7); NEUTROPHILS % (AUTO) 65.3 % (42.2-75.2); PLATELET COUNT (AUTO) 327 K/uL (140-450); RED BLOOD CELL COUNT(AUTO) 3.34 MIL/uL (4.20-5.40); RED CELL DISTRIBUTION WIDTH 14.9 % (11.6-13.7); WHITE BLOOD COUNT (AUTO) 7.3 K/uL (4.8-10.8)
--- NOTE | 2019-10-15 17:45 | NUR ---
PERFORMED STRAIGHT CATH 14F ON PT. 100 ML OF YELLOW URINE COLLECTED. STERILE TECHNIQUE WAS USED AND PT TOLERATED WELL.
[2019-10-15 17:52] LABS: ALBUMIN 3.2 g/dL (3.4-5.0); ANION GAP 12.8 (8-16); ASPARTATE AMINOTRANSFERASE 16 U/L (15-37); CARBON DIOXIDE 25.4 mmol/L (21-32); CHLORIDE 103 mmol/L (98-107); CREATININE 2.9 mg/dL (0.6-1.3); GLUCOSE 238 mg/dL (74-106); POTASSIUM 4.2 mmol/L (3.5-5.1); SODIUM SERUM 137 mmol/L (136-145); TOTAL BILIRUBIN 0.2 mg/dL (0.0-1.0)
[2019-10-15 17:55] LABS: UREA NITROGEN, BLOOD 72 mg/dL (7-18)
[2019-10-15 17:56] LABS: ACETAMINOPHEN < 0.5 ug/ml (10-30); SALICYLATE < 2.8 mg/dL (2.8-20.0)
[2019-10-15] MEDS ORDERED: cefTRIAXone 1,000 MG VIAL ONE (18:28)
[2019-10-15] MEDS ORDERED: DOCU100C16 PO (18:32)
[2019-10-15] MEDS ORDERED: CHOL100037 PO (18:32)
[2019-10-15] MEDS ORDERED: OMEP20TC12 PO (18:32)
[2019-10-15] MEDS ORDERED: INSU100S45 SUBQ (18:32)
--- NOTE | 2019-10-15 18:36 | NUR ---
PT A AND O X4 AND EATING DINNER. FAMILY AT BEDSIDE.
--- NOTE | 2019-10-15 19:10 | NUR ---
Patient will be admitted to care of [facility]. Admited to TELE. Will go to room 120B. Belongings list completed.
--- NOTE | 2019-10-15 19:20 | NUR ---
RECEIVED PT FROM ER NURSE. PT CAME IN [facility] AND ABLE TO AMBULATE TO [facility] BED. NO SOB OR ANY RESPIRATORY DISTRESS NOTED. IV SITE ON RT HAND 22G, PATENT, INTACT AND ASYMPTOMATIC. SKIN INTACT, WARM AND DRY TO TOUCH. DX: HYPOGLYCEMIA. STANDARD PRECAUTION IN PLACE, ALL SAFETY MEASUREMENT ARE MET. BED IN LOW POSITION, CALL LIGHT WITHIN REACH.
[2019-10-15 19:25] LABS: APPEARANCE,URINE SL CLOUDY (CLEAR); BILIRUBIN,URINE NEGATIVE (NEGATIVE); BLOOD, URINE NEGATIVE (NEGATIVE); COLOR,URINE YELLOW (YELLOW); LEUKOCYTE ESTERASE ,URINE 1+ (NEGATIVE); NITRITE, URINE NEGATIVE (NEGATIVE); PH,URINE 5.5 (5.0-9.0); UGLUCOSE NEGATIVE (NEGATIVE)
[2019-10-15 20:00] VITALS: BP 131/85
[2019-10-15 20:13] LABS: RBC,URINE 0-5 /HPF (0-5); WBC,URINE 0-5 /HPF (0-5)
[2019-10-15 20:20] LABS: BARBITURATE, URINE NEG. ng/ml (NEG <=200); BENZODIAZEPINE, URINE NEG. ng/mL (NEG <=200); CANNABINOID, URINE NEG. ng/mL (NEG <=50); COCAINE, URINE NEG. ng/mL (NEG <=300); OPIATE, URINE POS. ng/mL (NEG <=2000); PHENCYCLIDINE SCREEN,URINE NEG. ng/mL (NEG <=25)
--- NOTE | 2019-10-15 22:00 | NUR ---
CALLED DR. SOLIZ REGARDING PT. DR. SOLIZ WILL PUT ORDER SOON.
[2019-10-15] MEDS ORDERED: DEXTROSE 50% 50 ML SYR IVP PRN (23:15)
[2019-10-15] MEDS ORDERED: DEXT 5% / NACL 0.45% 1,000 ML IV SCH (23:30)
[2019-10-16] VITALS: BP 147/42
--- NOTE | 2019-10-16 00:05 | NUR ---
VS CHECKED, WITHIN PT'S BASELINE. BED IN LOW POSITION, CALL LIGHT WITHIN REACH.
--- NOTE | 2019-10-16 02:55 | NUR ---
PT C/O 05/05 PAIN ON IO SITE. CALLED DR. SOLIZ AND RECEIVED PRN MORPHINE ORDER. WILL ADMINISTER.
[2019-10-16] MEDS ORDERED: MORPHINE SULFATE 2 MG/ML SYR IVP PRN (03:10)
--- NOTE | 2019-10-16 03:17 | NUR ---
GIVEN MORPHINE MD ORDERED. PT TOLERATED WELL.
--- NOTE | 2019-10-16 03:55 | NUR ---
VS CHECKED, WITHIN PT'S BASELINE, PT STILL C/O 7/10 IO SITE PAIN. WILL CONTINUE TO MONITOR.
[2019-10-16 04:00] VITALS: BP_SYST 130; BP_SYST 142; BP_DIAS 46; BP_DIAS 66
[2019-10-16] MEDS: BLOOD GLUCOSE MONITORING 1 DEV DEV FS SCH ×3 (05:59→16:39)
--- NOTE | 2019-10-16 06:00 | NUR ---
BS CHECKED, 139, NO INSULIN COVERAGE NEEDED.
--- NOTE | 2019-10-16 06:42 | NUR ---
PT SLEEPING IN BED. NO ACUTE DISTRESS NOTED.
--- NOTE | 2019-10-16 07:20 | NUR ---
RECEIVED PT FROM LEASING CONSULTANT NURSE, PT IS AWAKE AND VIETNAMESE SPEAKING, IV LINE ON THE RT HAND G. 22 WITH D5 1/2 NS INFUSING AT 75ML/HR, SIDE RAILS ARE UP AND CALL LIGHT WITHIN REACH, SAFETY AND FALL PRECAUTION ENFORCED, NO SIGN OF DISTRESS NOTED AND WILL MONITOR PT.
[2019-10-16 08:00] VITALS: BP 138/47
[2019-10-16] MEDS ORDERED: ECOTRIN 81 MG TABEC PO SCH (09:00)
[2019-10-16] MEDS ORDERED: CHOLECALCIFEROL 1,000 IU TAB PO SCH (09:00)
[2019-10-16] MEDS ORDERED: LOSARTAN 50 MG TAB PO SCH (09:00)
[2019-10-16] MEDS ORDERED: METOPROLOL 25 MG TAB PO SCH (09:00)
[2019-10-16] MEDS ORDERED: OXYBUTYNIN 5 MG TAB PO SCH (09:00)
[2019-10-16] MEDS ORDERED: DOCUSATE SODIUM 100 MG GELCAP PO SCH (09:00)
--- NOTE | 2019-10-16 09:04 | NUR ---
PT WAS GIVEN AM ORAL MEDICATIONS NOW, WILL MONITOR PT.
--- NOTE | 2019-10-16 11:00 | NUR ---
PT'S IVF WAS STOPPED PER DR. STAHL.
[2019-10-16] MEDS ORDERED: HYDROcodone/APAP 5/325 MG 1 TAB TAB PO PRN (11:05)
--- NOTE | 2019-10-16 11:41 | NUR ---
PT WAS GIVEN INSULIN 6 UNITS FOR BLOOD GLUCOSE OF 279 ON THE ABDOMEN, WILL MONITOR PT.
[2019-10-16] MEDS: INSULIN LISPRO SLIDING SCALE 100 UNITS/ML VIAL SUBQ PRN ×2 (11:42→16:57)
[2019-10-16 12:00] VITALS: BP 108/45
--- NOTE | 2019-10-16 14:14 | NUR ---
PATIENT HAS BEEN SCREENED AND CATEGORIZED MODERATE NUTRITION RISK. PATIENT WILL BE SEEN WITHIN 3-5 DAYS OF ADMISSION. 10/18/19 - 10/20/19 GRETA ASKEW MBA, RD
[2019-10-16 16:00] VITALS: BP 145/49
--- NOTE | 2019-10-16 16:57 | NUR ---
PT WAS GIVEN 4 UNITS INSULIN ON THE ABDOMEN, FOR THE BLOOD GLUCOSE OF 224
--- NOTE | 2019-10-16 18:30 | NUR ---
DISCHARGED INSTRUCTIONS WERE GIVEN TO PT NOW PER HEAVY DUTY MECHANIC MINERVA, #[id number], AND INFORMED PT THAT A COPY OF THE SLIDING SCALE FROM THE HOSPITAL WAS PRINTED AND HANDED TO HER DAUGHTER, DIETARY TEACHING REGARDING DIABETES MANAGEMENT WAS GIVEN TO PT AND VERBALIZED UNDERSTANDING, PT WAS INFORMED THAT A HOME HEALTH NURSE WILL BE CALLING AND WILL VISIT HER TO HELP HER WITH DIABETES MANAGEMENT AND PT VERBALIZED UNDERSTANDING
--- NOTE | 2019-10-16 18:50 | NUR ---
DISCHARGED PT TO HOME VIA WHEELCHAIR WITH FAMILY, IV LINE AND ARM BAND REMOVED AND PT IS STABLE AT THIS TIME, DENYING PAIN.
[2019-10-16] MEDS ORDERED: ATORVASTATIN 20 MG TAB PO SCH (21:00)
[2019-10-16] MEDS ORDERED: INSULIN LANTUS 100 UNITS/ML 10 ML VIAL SUBQ SCH (21:00)
== END 2019-10-16 18:50 | disposition home or self-care (01) | DRG 917 ==
LOC: MED 16:35 → MTU 19:00
PROVIDERS: ADMIT Internal Medicine Pulmonary Disease; ATTEND Internal Medicine Pulmonary Disease
PROC: 06HY33Z Insertion of Infusion Device into Lower Vein, Percutaneous Approach (ICD-10-PCS; principal; 2019-10-15)
DX: T38.3X1A Poisoning by insulin and oral hypoglycemic [antidiabetic] drugs, accidental (unintentional), initial encounter (principal); G93.41 Metabolic encephalopathy; I21.A1 Myocardial infarction type 2; E78.5 Hyperlipidemia, unspecified; E86.9 Volume depletion, unspecified; E86.0 Dehydration; I12.9 Hypertensive chronic kidney disease with stage 1 through stage 4 chronic kidney disease, or unspecified chronic kidney disease; N18.9 Chronic kidney disease, unspecified; T38.3X5A Adverse effect of insulin and oral hypoglycemic [antidiabetic] drugs, initial encounter; Z79.4 Long term (current) use of insulin; Z91.14 Patient's other noncompliance with medication regimen; Y92.89 Other specified places as the place of occurrence of the external cause; E11.649 Type 2 diabetes mellitus with hypoglycemia without coma; E11.22 Type 2 diabetes mellitus with diabetic chronic kidney disease
CPT/HCPCS: 36415; 71045; 80053; 80305; 81001; 82550; 82553; 82948; 83605; 84484; 85025; 87040; 87081; 87086; 93005; 96361; 96365; 99285; C1758; G0480; G0482; J0696; J1815; J2270; J7060

== ENCOUNTER 2019-12-01 15:08 | Emergency (ER) | payer MEDICARE, OTHER ==
[~2019-12-01] VITALS: Ht 162.6 cm; Wt 87.1 kg
[~2019-12-01 15:08] MED LIST changes: -ALLO100T21 PO; -CETI10TA71 PO; +CHOL100037 PO; +DOCU100C16 PO; -FERR325E14 PO; -FURO-570 PO; +OMEP20TC12 PO; -ONDA8TAB PO; -PSEU60TA51 PO; -VITD1000 PO
[2019-12-01 15:30] VITALS: BP 160/62
--- NOTE | 2019-12-01 15:30 | NUR ---
TO [facility] AMBULATORY
--- NOTE | 2019-12-01 15:42 | NUR ---
NASAL SWAB COMPLETED IN TRIAGE
--- NOTE | 2019-12-01 16:09 | NUR ---
DR SHERMAN AT BEDSIDE
--- NOTE | 2019-12-01 16:13 | NUR ---
PT GOING TO XRAY VIA WHEELCHAIR
--- NOTE | 2019-12-01 16:34 | NUR ---
PT C/O CP WITH PRODUCTIVE COUGH, BODYACHES, RINORRHEA, SORE THROAT FOR 8 DAYS. PT AFEBRILE. WHEEZES BILTERALLY THOUGH LUNG GUTIERREZ. PAIN 06/05. PT DENIES N/V/D. PT ALERT AND AWAKE. AMB WITH STEADY GAIT. PMH- HTN, DM, CKD
[2019-12-01 17:04] VITALS: BP 152/70
--- NOTE | 2019-12-01 17:04 | NUR ---
Patient discharged with v/s stable. Written and verbal after care instructions given and explained. Patient alert, oriented and verbalized understanding of instructions. Ambulatory with steady gait. All questions addressed prior to discharge. ID band removed. Patient advised to follow up with PMD. Rx of AEROCHAMBER, ALBUTERAL, ROBITUSSIN, AND PREDNISONE given. Patient educated on indication of medication including possible reaction and side effects. Opportunity to ask questions provided and answered. PT GIVEN COPY OF XRAY RESULTS
== END 2019-12-01 17:04 | disposition home or self-care (01) ==
LOC: MED 15:08
DX: J20.9 Acute bronchitis, unspecified (principal); E11.9 Type 2 diabetes mellitus without complications; I10 Essential (primary) hypertension; Z87.448 Personal history of other diseases of urinary system; Z90.49 Acquired absence of other specified parts of digestive tract; Z79.899 Other long term (current) drug therapy
CPT/HCPCS: 71046; 87804; 99284

== ENCOUNTER 2019-12-14 15:04 | Inpatient (IN) | payer MEDICARE, OTHER ==
[~2019-12-14] VITALS: Ht 162.6 cm; Wt 87.1 kg
[2019-12-14 15:13] VITALS: BP 182/65
[2019-12-14] MEDS ORDERED: diphenhydrAMINE 50 MG/ML VIAL IVP ONE (16:05)
[2019-12-14] MEDS ORDERED: METOCLOPRAMIDE 10 MG/2 ML INJ VIAL IVP ONE (16:05)
[2019-12-14 16:42] LABS: PROTHROMBIN TIME 9.1 secs (10.8-13.4)
[2019-12-14 16:44] LABS: ALBUMIN 3.1 g/dL (3.4-5.0); ANION GAP 10.8 (8-16); ASPARTATE AMINOTRANSFERASE 480 U/L (15-37); CARBON DIOXIDE 28.5 mmol/L (21-32); CHLORIDE 101 mmol/L (98-107); CREATININE 1.6 mg/dL (0.6-1.3); GLUCOSE 214 mg/dL (74-106); POTASSIUM 5.3 mmol/L (3.5-5.1); SODIUM SERUM 135 mmol/L (136-145); TOTAL BILIRUBIN 0.3 mg/dL (0.0-1.0); UREA NITROGEN, BLOOD 43 mg/dL (7-18)
[2019-12-14 16:50] LABS: BASOPHILS # (AUTO) 0.1 K/uL (0.00-0.22); BASOPHILS % (AUTO) 1.2 % (0.0-2.0); EOSINOPHILS % (AUTO) 0.1 % (0.0-4.0); HEMATOCRIT 31.9 % (36-48); HEMOGLOBIN 10.4 g/dL (12.0-16.0); LYMPHOCYTES # (AUTO) 1.1 K/uL (2.5-16.5); LYMPHOCYTES % (AUTO) 9.3 % (20.5-51.1); MEAN CORPUSCULAR HEMOGLOBIN 29 pg (27-31); MEAN CORPUSCULAR HGB CONC 33 g/dL (33-37); MEAN CORPUSCULAR VOLUME 87.9 fL (80-94); MONOCYTES # (AUTO) 0.7 K/uL (0.8-1.0); MONOCYTES % (AUTO) 5.4 % (1.7-9.3); NEUTROPHILS # (AUTO) 10.2 K/uL (1.8-7.7); PLATELET COUNT (AUTO) 267 K/uL (140-450); RED BLOOD CELL COUNT(AUTO) 3.63 MIL/uL (4.20-5.40); RED CELL DISTRIBUTION WIDTH 14.3 % (11.6-13.7); WHITE BLOOD COUNT (AUTO) 12.2 K/uL (4.8-10.8)
[2019-12-14 17:46] LABS: APPEARANCE,URINE CLEAR (CLEAR); BILIRUBIN,URINE NEGATIVE (NEGATIVE); BLOOD, URINE NEGATIVE (NEGATIVE); COLOR,URINE YELLOW (YELLOW); LEUKOCYTE ESTERASE ,URINE TRACE (NEGATIVE); NITRITE, URINE NEGATIVE (NEGATIVE); UGLUCOSE TRACE (NEGATIVE)
--- NOTE | 2019-12-14 17:51 | NUR ---
Stable VSS Labs back has reviewed CT Abd to be done
[2019-12-14 17:54] LABS: RBC,URINE NONE SEEN /HPF (0-5)
[2019-12-14 17:55] LABS: WBC,URINE 16-25 (MOD) /HPF (0-5)
--- NOTE | 2019-12-14 18:12 | NUR ---
PTS FAMILY STATES PT WAS RECENTLY HERE AND NO CHANGE IN MEDICATIONS FROM PREVIOUS VISIT
[2019-12-14] MEDS ORDERED: MORPHINE SULFATE 2 MG/ML SYR IVP PRN (18:15)
[2019-12-14] MEDS ORDERED: ALBUTEROL 0.083% 2.5 MG/3 ML NEBU INH PRN (18:15)
[2019-12-14] MEDS ORDERED: ONDANSETRON 4 MG/2 ML VIAL IVP PRN (18:15)
[2019-12-14] MEDS ORDERED: ACETAMINOPHEN 325 MG TAB PO PRN (18:15)
[2019-12-14] MEDS ORDERED: MORPHINE SULFATE 4 MG/ML SYR IVP PRN (18:15)
[2019-12-14] MEDS ORDERED: LORazepam 2 MG/ML VIAL IVP PRN (18:15)
[2019-12-14] MEDS ORDERED: DEXTROSE 50% 50 ML SYR IVP PRN (18:15)
[2019-12-14] MEDS ORDERED: INSULIN LISPRO SLIDING SCALE 100 UNITS/ML VIAL SUBQ PRN (18:15)
[2019-12-14] MEDS ORDERED: SUMAtriptan 50 MG TAB PO PRN (18:15)
[2019-12-14] MEDS ORDERED: ZOLPIDEM 5 MG TAB PO PRN (18:15)
[2019-12-14 18:18] LABS: ALBUMIN 3.2 g/dL (3.4-5.0); BILIRUBIN,DIRECT 0.1 mg/dL (0.0-0.3); TOTAL BILIRUBIN 0.2 mg/dL (0.0-1.0)
[2019-12-14] MEDS ORDERED: cefTRIAXone 1,000 MG VIAL IV SCH (18:47)
[2019-12-14] MEDS ORDERED: LEVOFLOXACIN 500 MG/D5W PREMIX 100 ML IV SCH (19:00)
--- NOTE | 2019-12-14 19:10 | NUR ---
RECEIVED BEDSIDE REPORT FROM DAY SHIFT NURSE ANITHA RN, PT HAD JUST ARRIVED AT UNIT, PT RESTING, NO DISTRESS NOTED, IV TO L AC 24 G PATENT INTACT, INFUSING WELL, PT ON 2LPM O2 VIA NC, NO SOB NOTED, V/S TAKEN, PT STABLE, MRSA SWAB TAKEN, ORIENT PT TO ROOM, CALL LIGHT, PT STATED UNDERSTANDING, INITIAL ASSESSMENT DONE, ALL SAFETY PRECAUTION MET, CALL LIGHT WITHIN REACH, WILL CONTINUE TO MONITOR.
--- NOTE | 2019-12-14 19:14 | NUR ---
Admitted. VSS. Afebrile. Pain free. Report to floor. Ambulated to . Placed in bed. Nurse aware.
[2019-12-14 19:30] VITALS: BP 102/69
[2019-12-14] MEDS: LACTATED RINGERS 1,000 ML IV SCH (20:15)
[2019-12-14] MEDS: DOCUSATE SODIUM 100 MG GELCAP PO SCH (20:15)
[2019-12-14] MEDS: BLOOD GLUCOSE MONITORING 1 DEV DEV FS SCH (20:24)
--- NOTE | 2019-12-14 20:24 | NUR ---
DUE MEDICATION ADMINISTERED, PT TOLERATED WELL, NO DISTRESS NOTED, CALL LIGHT WITHIN REACH, WILL CONTINUE TO MONITOR.
[2019-12-14] MEDS ORDERED: INSULIN LANTUS 100 UNITS/ML 10 ML VIAL SUBQ SCH (21:00)
[2019-12-14] MEDS ORDERED: NIFEdipine 30 MG TABER PO SCH (21:00)
--- NOTE | 2019-12-14 23:02 | NUR ---
PT AMBULATED TO RESTROOM AND NO DISTRESS NOTED, CALL LIGHT WITHIN REACH, WILL CONTINUE TO MONITOR.
[2019-12-15] VITALS: BP 143/60
--- NOTE | 2019-12-15 03:30 | NUR ---
PT SLEEPING, CALL LIGHT WITHIN REACH, WILL CONTINUE TO MONITOR.
[2019-12-15] MEDS: BLOOD GLUCOSE MONITORING 1 DEV DEV FS SCH ×3 (05:30→16:23)
[2019-12-15 06:31] LABS: ALBUMIN 2.4 g/dL (3.4-5.0); ANION GAP 12.1 (8-16); ASPARTATE AMINOTRANSFERASE 171 U/L (15-37); CARBON DIOXIDE 27.6 mmol/L (21-32); CHLORIDE 105 mmol/L (98-107); CREATININE 1.7 mg/dL (0.6-1.3); GLUCOSE 93 mg/dL (74-106); MAGNESIUM 1.9 mg/dL (1.8-2.4); POTASSIUM 4.7 mmol/L (3.5-5.1); SODIUM SERUM 140 mmol/L (136-145); TOTAL BILIRUBIN 0.2 mg/dL (0.0-1.0); UREA NITROGEN, BLOOD 41 mg/dL (7-18)
[2019-12-15] MEDS: LACTATED RINGERS 1,000 ML IV SCH (06:42)
[2019-12-15 06:58] LABS: BASOPHILS # (AUTO) 0.1 K/uL (0.00-0.22); BASOPHILS % (AUTO) 0.7 % (0.0-2.0); EOSINOPHILS # (AUTO) 0.1 K/uL (0-0.4); EOSINOPHILS % (AUTO) 0.7 % (0.0-4.0); HEMATOCRIT 25.8 % (36-48); HEMOGLOBIN 8.5 g/dL (12.0-16.0); LYMPHOCYTES # (AUTO) 1.5 K/uL (2.5-16.5); LYMPHOCYTES % (AUTO) 20.7 % (20.5-51.1); MEAN CORPUSCULAR HEMOGLOBIN 29 pg (27-31); MEAN CORPUSCULAR HGB CONC 33 g/dL (33-37); MEAN CORPUSCULAR VOLUME 88.3 fL (80-94); MONOCYTES # (AUTO) 0.7 K/uL (0.8-1.0); MONOCYTES % (AUTO) 9.2 % (1.7-9.3); NEUTROPHILS # (AUTO) 5.1 K/uL (1.8-7.7); NEUTROPHILS % (AUTO) 68.7 % (42.2-75.2); PLATELET COUNT (AUTO) 216 K/uL (140-450); RED BLOOD CELL COUNT(AUTO) 2.92 MIL/uL (4.20-5.40); RED CELL DISTRIBUTION WIDTH 14.5 % (11.6-13.7); WHITE BLOOD COUNT (AUTO) 7.4 K/uL (4.8-10.8)
--- NOTE | 2019-12-15 07:30 | NUR ---
ENDORSED PT TO DAY SHIFT NURSE CHIKIS RN, PT STABLE, NO DISTRESS NOTED, CALL LIGHT WITHIN REACH.
--- NOTE | 2019-12-15 07:30 | NUR ---
RECEIVED BEDSIDE REPORT FROM PRODUCT MANAGER NURSE BOONE. PT IS AWAKE AND ALERT, NO S/S OF DISTRESS, NO C/O PAIN. PT IS ON 2L O2 NC. SKIN IS INTACT. IV SITE L AC 24 G, INFUSING LR 80 ML/HR. PT IS AMBULATORY AND ABLE TO MAKE NEEDS KNOWN. CALL LIGHT IS WITHIN REACH. WILL CONTINUE TO MONITOR.
[2019-12-15 08:00] VITALS: BP 148/42
--- NOTE | 2019-12-15 08:26 | NUR ---
PATIENT HAS BEEN SCREENED AND CATEGORIZED HIGH NUTRITION RISK. PATIENT WILL BE SEEN WITHIN 1-2 DAYS OF ADMISSION. 12/15/19-12/16/[address]
[2019-12-15] MEDS ORDERED: LOSARTAN 50 MG TAB PO SCH (09:00)
[2019-12-15] MEDS ORDERED: ECOTRIN 81 MG TABEC PO SCH (09:00)
[2019-12-15] MEDS ORDERED: METOPROLOL 25 MG TAB PO SCH (09:00)
[2019-12-15] MEDS: DOCUSATE SODIUM 100 MG GELCAP PO SCH (09:09)
[2019-12-15] MEDS: NIFEdipine 10 MG CAPLF PO SCH ×2 (09:09→12:25)
--- NOTE | 2019-12-15 09:16 | NUR ---
AM MEDS ADMINISTERED; PT TOLERATED WELL. PT'S BP IS CURRENTLY 148/42. WILL CONTINUE TO MONITOR.
--- NOTE | 2019-12-15 11:44 | NUR ---
PT'S BG IS 180 AT THIS TIME, WILL HOLD INSULIN COVERAGE BECAUSE PT IS NPO FOR HIDA SCAN LATER TODAY.
--- NOTE | 2019-12-15 12:22 | NUR ---
PT SEEN BY DR DEL TORO. PER DR DEL TORO, IF HIDA SCAN COMES BACK NEGATIVE FOR ACUTE DONNA, PT CAN BE DC'D TODAY.
--- NOTE | 2019-12-15 12:44 | NUR ---
2 RD INITIAL ASSESSMENT COMPLETED PLEASE REFER TO NUTRITION ASSESSMENT UNDER CARE ACTIVITY FOR ESTIMATED NUTRITIONAL NEEDS. 1. CONTINUE 2GM NA AND CCHO 60GM DIET TOLERATED 2. ENCOURAGED PO INTAKE 3. RD TO FOLLOW-UP 3-5 DAYS, MODERATE RISK RUBENS BALL, RD
--- NOTE | 2019-12-15 14:33 | NUR ---
DC PLANN[age] YRS OLD FEMALE PATIENT WAS ADMITTED FROM HOME WITH A DX OF LAVERN. PT HAS A HX OF CHRONIC RENAL INSUFFICIENCY LFT ARE ELEVATED , ADMINISTERED IVF , AND SYMPTOMS RESOLVED PT HAD OUT PATIENT NEPHROLOGY PENDING FOR LATER THE SAME WEEK PT IS DISCHARGED FOR OUT PATIENT FOLLOW UP.
[2019-12-15 16:00] VITALS: BP 153/53
--- NOTE | 2019-12-15 16:35 | NUR ---
PT TAKEN TO HIDA SCAN AT THIS TIME
--- NOTE | 2019-12-15 17:55 | NUR ---
PT BACK FROM HIDA SCAN.
--- NOTE | 2019-12-15 18:55 | NUR ---
HIDA SCAN WAS NEGATIVE. PT OK TO DC PER MD. DC PAPERWORK COMPLETED, WILL ENDORSE TO NEXT SHIFT.
[2019-12-15] MEDS ORDERED: LEVOFLOXACIN 250 MG/D5 PREMIX 50 ML IV SCH (19:00)
--- NOTE | 2019-12-15 19:10 | NUR ---
PT ENDORSED TO MINER OPERATOR IN STABLE CONDITION.
--- NOTE | 2019-12-15 19:15 | NUR ---
RECEIVED PT IN STABLE CONDITION FROM AM NURSE. AWAKE,ALERT AND ORIENTED X4. WITH NO C/O ANY DISCOMFORT NOR PAIN NOTED. PT IS HAYLEE DISCHARGE TONIGHT. AM NURSE HAVE THE DC PAPERS READY. WILL DISCUSSED THIS TO PT. STILL WITH IV ACCESS ON THE LT AC G#20. MED SURG PT. BED ON LOW POSITION,. CALL LIGHT WITHIN EASY REACH. WILL CONTINUE TO MONITOR.
--- NOTE | 2019-12-15 20:10 | NUR ---
PT SIGNED ALL THE DISCHARGE PAPERS. INSTRUCTED TO HAVE A FOLLOW UP WITH PCP . VERBALIZED UNDERSTANDING ON MEDICATIONS TO CONTINUE AT HOME. ID BANDS AND IV ACCESS REMOVED. CATHETER INTACT. PERSONAL BELONGINGS WITH PT. DC BY WHEELCHAIR ACCOMPANIED BY FAMILY TO PRIVATE CAR WITH MUTUAL FUNDS AGENT.
[2019-12-16] MEDS ORDERED: AMLO2.5T PO (13:06)
[2019-12-16] MEDS ORDERED: ATOR20TA PO (13:06)
[2019-12-16] MEDS ORDERED: METO50TA20 PO (13:10)
[2019-12-16] MEDS ORDERED: CYCL5TAB PO (13:12)
== END 2019-12-15 20:10 | disposition home or self-care (01) | DRG 948 ==
LOC: MED 15:04 → MTU 18:19
PROVIDERS: ADMIT Internal Medicine Pulmonary Disease; ATTEND Internal Medicine Pulmonary Disease
DX: R74.8 Abnormal levels of other serum enzymes (principal); E44.1 Mild protein-calorie malnutrition; T50.905A Adverse effect of unspecified drugs, medicaments and biological substances, initial encounter; G43.909 Migraine, unspecified, not intractable, without status migrainosus; Z79.899 Other long term (current) drug therapy; E11.9 Type 2 diabetes mellitus without complications; N18.9 Chronic kidney disease, unspecified; E11.22 Type 2 diabetes mellitus with diabetic chronic kidney disease; I12.9 Hypertensive chronic kidney disease with stage 1 through stage 4 chronic kidney disease, or unspecified chronic kidney disease; E66.9 Obesity, unspecified; Z68.33 Body mass index [BMI] 33.0-33.9, adult
CPT/HCPCS: 36415; 70450; 71045; 78445; 80053; 80076; 81001; 82948; 83735; 85025; 85610; 85730; 86870; 86886; 86900; 86901; 87081; 93005; 96361; 96365; 96375; 99285; J0696; J1200; J1815; J1956; J2765; J7120; Q0092

== ENCOUNTER 2019-12-16 10:44 | Inpatient (IN) | payer MEDICARE, OTHER ==
[~2019-12-16] VITALS: Ht 162.6 cm; Wt 87.1 kg
[2019-12-16] MEDS ORDERED: NACL 0.9% 1,000 ML IV SCH (10:48)
[2019-12-16 10:49] VITALS: BP 158/56
--- NOTE | 2019-12-16 10:56 | NUR ---
On scene, per family pt rolled off the couch. Denies LOC. Denies injury. BS was initially 45, given oral glucose. BS went up to 54, second oral glucose dose was given. BS went to 60. Pt was given IM glucagon. Current BS 93.
--- NOTE | 2019-12-16 11:00 | NUR ---
Note undone in EDM - 12/16/19 at 1257 by MED OSNI CONDE FROM [facility] C/O ROLLED OFF THE COUCH AND INTO THE GROUND. DENIES TRAUMA. BLOOD SUGAR 60. GIVEN GLUCAGON IM ON THE FIELD PATIENT STATES PAIN OF 0/10 AT THIS TIME; VSS; PATIENT POSITIONED FOR COMFORT; HOB ELEVATED; BEDRAILS UP X2; BED DOWN. ER MD MADE AWARE OF PT STATUS.
--- NOTE | 2019-12-16 11:00 | NUR ---
BIB [facility] FROM HOME C/O ROLLED OFF THE COUCH AND INTO THE GROUND. DENIES TRAUMA. BLOOD SUGAR 60. GIVEN GLUCAGON IM ON THE FIELD. PT ATE LAST NIGHT AROUND 500PM AND USED 30 UNITS INSULIN N INJECTION. PATIENT STATES PAIN OF 0/10 AT THIS TIME; VSS; PATIENT POSITIONED FOR COMFORT; HOB ELEVATED; BEDRAILS UP X2; BED DOWN. ER MD MADE AWARE OF PT STATUS.
--- NOTE | 2019-12-16 11:13 | NUR ---
LAB AT BEDSIDE
--- NOTE | 2019-12-16 11:13 | NUR ---
BEAR HUGGER AND BLANKETS APPLIED FOR PTS LOW TEMP
--- NOTE | 2019-12-16 11:21 | NUR ---
XRAY IS AT BEDSIDE.
[2019-12-16 11:39] LABS: BASOPHILS % (AUTO) 0.6 % (0.0-2.0); EOSINOPHILS % (AUTO) 0.2 % (0.0-4.0); HEMATOCRIT 30.7 % (36-48); HEMOGLOBIN 9.8 g/dL (12.0-16.0); LYMPHOCYTES # (AUTO) 0.9 K/uL (2.5-16.5); LYMPHOCYTES % (AUTO) 10.1 % (20.5-51.1); MEAN CORPUSCULAR HEMOGLOBIN 28 pg (27-31); MEAN CORPUSCULAR HGB CONC 32 g/dL (33-37); MEAN CORPUSCULAR VOLUME 88.7 fL (80-94); MONOCYTES # (AUTO) 0.4 K/uL (0.8-1.0); MONOCYTES % (AUTO) 4.8 % (1.7-9.3); NEUTROPHILS # (AUTO) 7.1 K/uL (1.8-7.7); NEUTROPHILS % (AUTO) 84.3 % (42.2-75.2); PLATELET COUNT (AUTO) 247 K/uL (140-450); RED BLOOD CELL COUNT(AUTO) 3.46 MIL/uL (4.20-5.40); WHITE BLOOD COUNT (AUTO) 8.4 K/uL (4.8-10.8)
--- NOTE | 2019-12-16 11:48 | NUR ---
NEW RECTAL TEMP 92.8
[2019-12-16 11:54] LABS: ALBUMIN 2.8 g/dL (3.4-5.0); ANION GAP 12.8 (8-16); ASPARTATE AMINOTRANSFERASE 63 U/L (15-37); CARBON DIOXIDE 27.5 mmol/L (21-32); CHLORIDE 103 mmol/L (98-107); CREATININE 1.6 mg/dL (0.6-1.3); GLUCOSE 140 mg/dL (74-106); POTASSIUM 4.3 mmol/L (3.5-5.1); SODIUM SERUM 139 mmol/L (136-145); TOTAL BILIRUBIN 0.2 mg/dL (0.0-1.0); UREA NITROGEN, BLOOD 40 mg/dL (7-18)
[2019-12-16 11:58] LABS: APPEARANCE,URINE HAZY (CLEAR); COLOR,URINE YELLOW (YELLOW)
[2019-12-16 11:59] LABS: BILIRUBIN,URINE NEGATIVE (NEGATIVE); BLOOD, URINE TRACE (NEGATIVE); UGLUCOSE NEGATIVE (NEGATIVE)
[2019-12-16 12:00] LABS: LEUKOCYTE ESTERASE ,URINE NEGATIVE (NEGATIVE); NITRITE, URINE NEGATIVE (NEGATIVE)
[2019-12-16 12:02] LABS: RBC,URINE 0-5 /HPF (0-5); WBC,URINE 0-5 /HPF (0-5)
[2019-12-16] MEDS ORDERED: cefTRIAXone 1,000 MG VIAL ONE (12:41)
--- NOTE | 2019-12-16 13:00 | NUR ---
ORAL TEMP 97.2.
[2019-12-16] MEDS ORDERED: ATOR20TA PO (13:06)
[2019-12-16] MEDS ORDERED: AMLO2.5T PO (13:06)
[2019-12-16] MEDS ORDERED: METO50TA20 PO (13:10)
[2019-12-16] MEDS ORDERED: CYCL5TAB PO (13:12)
[2019-12-16] MEDS: DEXT 5% / NACL 0.45% 1,000 ML IV SCH (13:28)
[2019-12-16] MEDS ORDERED: LORazepam 2 MG/ML VIAL IVP PRN (13:30)
[2019-12-16] MEDS ORDERED: MORPHINE SULFATE 4 MG/ML SYR IVP PRN (13:30)
[2019-12-16] MEDS ORDERED: MORPHINE SULFATE 2 MG/ML SYR IVP PRN (13:30)
[2019-12-16] MEDS ORDERED: ALBUTEROL 0.083% 2.5 MG/3 ML NEBU INH PRN (13:30)
--- NOTE | 2019-12-16 13:50 | NUR ---
PT BP 192/60 HR 60, DR. SAHU NOTIFIED.
[2019-12-16] MEDS ORDERED: METOPROLOL 5 MG/5 ML VIAL IVP ONE (13:55)
[2019-12-16] MEDS ORDERED: ENALAPRILAT 2.5 MG/2 ML VIAL IVP ONE (14:15)
--- NOTE | 2019-12-16 14:20 | NUR ---
PT'S BP IS 188/60MMHG, HR 53. DR. SAHU NOTIFIED AGAIN.
--- NOTE | 2019-12-16 14:33 | NUR ---
Shade perales in [facility] - 12/16/19 at 1435 by AIRAM U/S IS AT BEDSIDE.
--- NOTE | 2019-12-16 14:35 | NUR ---
XRAY IS AT BEDSIDE.
[2019-12-16 14:50] VITALS: BP 147/60
--- NOTE | 2019-12-16 14:50 | NUR ---
RECEIVED PT FROM ER NURSE, RIKI, VIA GINA PT IS AWAKE, ALERT AND ORIENTED, ON 2L O2 NC, IV LINE ON THE RT HAND G. [address] IN [address], NO EDEMA NOTED, DENIES PAIN AND NO SIGN OF DISTRESS NOTED AND WILL MONITOR PT.
--- NOTE | 2019-12-16 14:50 | NUR ---
Patient will be admitted to care of PNA, HYPOGLYCEMIA. Admited to MED-SURG. Will go to room 105A. Belongings list completed. Report to FABIOLA BROWNING.
--- NOTE | 2019-12-16 14:55 | NUR ---
DR. PARRA CAME TO THE PT'S ROOM AND ASSESSED PT AND PT AGREED TO HAVE AN EGD DONE BY THE MD.
--- NOTE | 2019-12-16 15:00 | NUR ---
MRSA SWAB DONE TO PT NOW AND SAMPLE WAS SENT TO LAB.
--- NOTE | 2019-12-16 15:25 | NUR ---
PT SIGNED THE CONSENT FOR EGD PROCEDURE, WILL INFORM OF THE TIME IF ALREADY SCHEDULED IN OR DESKTOP.
--- NOTE | 2019-12-16 15:31 | NUR ---
PT WAS STARTED ON IVF D51/2 NS AT 80ML/HR NOW ON THE RT HAND.
--- NOTE | 2019-12-16 16:01 | NUR ---
SPOKE TO DR. DEL TORO AND INFORMED MD OF THE PT'S BP RESULT OF 177/60, PULSE IS 99 AND PT DENIES ANY PAIN, DR. DEL TORO SAID TO JUST MONITOR PT, AND ORDERED TO DISCONTINUE THE REGLAN ORDERED IN THE PT'S EMAR SAYING GT. WILL CARRY OUT TELEPHONE ORDERS.
[2019-12-16] MEDS ORDERED: METOCLOPRAMIDE 10 MG/10 ML SYRP UDC GT SCH (16:30)
[2019-12-16] MEDS: PIPERACILLIN/TAZOBACTAM 2.25 GM in DEXTROSE 5% 50 ML IV SCH (17:27)
[2019-12-16] MEDS: SENNA 8.6 MG TAB PO SCH (17:28)
--- NOTE | 2019-12-16 17:28 | NUR ---
PT WAS GIVEN IV ZOSYN NOW AND ORAL TABLETS SENNA, WILL MONITOR PT.
--- NOTE | 2019-12-16 19:25 | NUR ---
ENDORSED PT TO DISH WASHER NURSE,DARRICK FOR CONTINUITY OF CARE.
--- NOTE | 2019-12-16 19:26 | NUR ---
RECEIVED ENDORSEMENT AT BEDSIDE FROM AM SHIFT RN. PATIENT LYING ON BED AWAKE ALERT ORIENTED. ABLE TO MAKE NEEDS KNOWN. ON O2 AT 2LPM VIA NASAL CANNULA AT 100% SATURATION. RESPIRATION EVEN AND UNLABORED. IV SITE ON RIGHT HAND GAUGE 20. INTACT AND PATENT. FULL CODE. NKA. ON FULL LIQUID DIET. SKIN IS INTACT. MAY AMBULATE WITH ASSIST. FOR EGD TOMORROW. SAFETY MEASURES IN PLACE. CALL LIGHT WITHIN REACH. WE'LL CONTINUE TO MONITOR.
[2019-12-16] MEDS: ATORVASTATIN 20 MG TAB PO SCH (20:58)
[2019-12-16] MEDS: ONDANSETRON 4 MG/2 ML VIAL IVP PRN (20:59)
--- NOTE | 2019-12-16 20:59 | NUR ---
PATIENT GO TO THE RESTROOM WITH ASSIST AND SAT ON HER BED. PATIENT C/O NAUSEA. ADVISED TO MOVE SLOWLY. ADMINISTERED ZOFRAN 4MG IVP PRN PER MD ORDER. TOLERATED WELL. MED ED PROVIDED. NO SOB NOTED. REFUSED TO TAKE THE LIPITOR CHOLESTEROL MED. SAFETY MEASURES IN PLACE. CALL LIGHT WITHIN REACH. CONTINUE TO MONITOR.
[2019-12-16] MEDS ORDERED: OXYBUTYNIN 5 MG TAB PO SCH (21:00)
--- NOTE | 2019-12-16 22:00 | NUR ---
PATIENT MADE AWARE FOR STOOL OB COLLECTION. VERBALIZED UNDERSTANDING. PATIENT IS RESTING. NO DISTRESS NOTED. NO C/O PAIN/DISCOMFORT. SAFETY MEASURES IN PLACE. CALL LIGHT WITHIN REACH.
--- NOTE | 2019-12-16 22:50 | NUR ---
PAGED DR. DEL TORO FOR PT HAS DIABETES, NEED ORDER FOR BLOOD GLUCOSE MONITORING. CALLED BACK WITH ORDER.
[2019-12-16] MEDS ORDERED: DEXTROSE 50% 50 ML SYR IVP PRN (22:55)
[2019-12-17] VITALS (8 sets, daily range): BP systolic 136–190; BP diastolic 38–64
[2019-12-17] MEDS: PIPERACILLIN/TAZOBACTAM 2.25 GM in DEXTROSE 5% 50 ML IV SCH ×5 (00:05→23:04)
--- NOTE | 2019-12-17 00:08 | NUR ---
PATIENT IS SLEEPING, EASILY AROUSABLE TO VERBAL AND TACTILE STIMULI. ADMINISTERED ZOSYN IVPB. TOLERATED WELL. NO A/R NOTED. IV LINE PATENT AND INTACT. NO SOB NOTED. NO C/O PAIN/DISCOMFORT. CALL LIGHT WITHIN REACH.
[2019-12-17] MEDS: DEXT 5% / NACL 0.45% 1,000 ML IV SCH ×2 (01:58→05:16)
--- NOTE | 2019-12-17 02:14 | NUR ---
PATIENT IS SLEEPING. NO SOB NOTED. NO C/O PAIN/DISCOMFORT. WILL CONTINUE TO MONITOR.
--- NOTE | 2019-12-17 04:00 | NUR ---
BP 187/62, HR-63 O2 SAT 97%. ASYMPTOMATIC BUT WILL STILL PAGE DR. DEL TORO TO LET HIM KNOW.
--- NOTE | 2019-12-17 04:13 | NUR ---
PAGED DR. DEL TORO FOR BP 187/62 ,HR-63 .CALLED BACK . MADE AWARE WITH NO NEW ORDER. HE SAID JUST LEAVE IT ALONE.
--- NOTE | 2019-12-17 05:16 | NUR ---
IVF DONE AND CHANGED TO A NEW BAG OF D5 1/2N/S AT 80ML/HR. INFUSING WELL. NO C/O PAIN/DISCOMFORT. NO SOB NOTED. CONTINUE TO MONITOR.
[2019-12-17 06:08] LABS: HEPATITIS A ANTIBODY IGM Negative (Negative); HEPATITIS B CORE AB TOTAL Negative (Negative); HEPATITIS B SURFACE ANTIBODY Non Reactive (.); HEPATITIS B SURFACE ANTIGEN Negative (Negative)
[2019-12-17] MEDS ORDERED: METOPROLOL 50 MG TAB ONE (06:16)
[2019-12-17] MEDS: BLOOD GLUCOSE MONITORING 1 DEV DEV FS SCH ×4 (06:17→20:42)
[2019-12-17] MEDS: METOPROLOL 50 MG TAB PO SCH (06:18)
--- NOTE | 2019-12-17 06:18 | NUR ---
BP 173/64. LOPRESSOR 50MG PO GIVEN . WILL CONTINUE TO MONITOR.
[2019-12-17 07:12] LABS: BASOPHILS % (AUTO) 0.5 % (0.0-2.0); EOSINOPHILS % (AUTO) 0.5 % (0.0-4.0); HEMATOCRIT 27.3 % (36-48); LYMPHOCYTES # (AUTO) 1.1 K/uL (2.5-16.5); LYMPHOCYTES % (AUTO) 11.1 % (20.5-51.1); MEAN CORPUSCULAR HEMOGLOBIN 29 pg (27-31); MEAN CORPUSCULAR HGB CONC 33 g/dL (33-37); MONOCYTES # (AUTO) 0.6 K/uL (0.8-1.0); MONOCYTES % (AUTO) 5.6 % (1.7-9.3); NEUTROPHILS # (AUTO) 8.4 K/uL (1.8-7.7); NEUTROPHILS % (AUTO) 82.3 % (42.2-75.2); PLATELET COUNT (AUTO) 224 K/uL (140-450); RED BLOOD CELL COUNT(AUTO) 3.14 MIL/uL (4.20-5.40); RED CELL DISTRIBUTION WIDTH 14.3 % (11.6-13.7); WHITE BLOOD COUNT (AUTO) 10.2 K/uL (4.8-10.8)
--- NOTE | 2019-12-17 07:15 | NUR ---
ENDORSED PATIENT AT BEDSIDE TO AM SHIFT RN FOR CONTINUITY OF CARE. PATIENT IS LYING IN BED AWAKE. NOT IN ANY ACUTE DISTRESS. NO C/O PAIN/DISCOMFORT. SAFETY MEASURES IN PLACE. CALL LIGHT WITHIN REACH.
[2019-12-17] MEDS ORDERED: LOSARTAN 50 MG TAB ONE (07:47)
[2019-12-17] MEDS ORDERED: amLODIPine 5 MG TAB ONE (07:47)
[2019-12-17] MEDS: ONDANSETRON 4 MG/2 ML VIAL IVP PRN ×2 (07:57→21:51)
[2019-12-17] MEDS: amLODIPine 5 MG TAB PO SCH (07:57)
[2019-12-17] MEDS: LOSARTAN 50 MG TAB PO SCH (07:57)
--- NOTE | 2019-12-17 08:00 | NUR ---
Patient with elevated BP and c/o nausea. 0900 losartan and amlodipine administered at this time. Zofran given IVP. Calm and quiet environment provided, all lights dimmed. Patient remains aaox4. Right hand IV intact. Call light within reach. Will cont to monitor.
--- NOTE | 2019-12-17 08:16 | NUR ---
PATIENT HAS BEEN SCREENED AND CATEGORIZED MODERATE NUTRITION RISK. PATIENT WILL BE SEEN WITHIN 3-5 DAYS OF ADMISSION. 12/19/19 12/21/[address]
[2019-12-17 08:56] LABS: ALBUMIN 2.6 g/dL (3.4-5.0); ANION GAP 15.7 (8-16); ASPARTATE AMINOTRANSFERASE 52 U/L (15-37); CARBON DIOXIDE 24.7 mmol/L (21-32); CHLORIDE 105 mmol/L (98-107); CREATININE 1.4 mg/dL (0.6-1.3); GLUCOSE 161 mg/dL (74-106); POTASSIUM 4.4 mmol/L (3.5-5.1); SODIUM SERUM 141 mmol/L (136-145); TOTAL BILIRUBIN 0.2 mg/dL (0.0-1.0); UREA NITROGEN, BLOOD 27 mg/dL (7-18)
[2019-12-17] MEDS ORDERED: ECOTRIN 81 MG TABEC PO SCH (09:00)
[2019-12-17] MEDS: ENOXAPARIN 30 MG/0.3 ML SYR SUBQ SCH (09:00)
[2019-12-17] MEDS: SENNA 8.6 MG TAB PO SCH ×3 (09:22→16:46)
--- NOTE | 2019-12-17 09:30 | NUR ---
Dr Maria paged re: persistent HTN despite med interventions. Awaiting call back. Pt currently resting in bed, aaox4, verbalized relief of nausea, respirations even & nonlabored in room air. Call light within reach.
--- NOTE | 2019-12-17 09:40 | NUR ---
Received call back from Dr. Maria and notified of persistent HTN and BP meds given. New orders received, noted and carried out.
[2019-12-17] MEDS ORDERED: hydrALAZINE 25 MG TAB ONE (09:45)
[2019-12-17] MEDS ORDERED: ISOSORBIDE MONONITRATE 30 MG TABER PO ONE (09:45)
[2019-12-17] MEDS ORDERED: ISOSORBIDE MONONITRATE 30 MG TABER PO SCH (09:46)
[2019-12-17] MEDS: hydrALAZINE 25 MG TAB PO SCH ×3 (09:48→21:50)
[2019-12-17 09:50] LABS: FERRITIN 242 ng/mL (15 - 150)
--- NOTE | 2019-12-17 11:30 | NUR ---
DISCHARGE PLANNING: THIS IS A 73 Y/O FEMALE PATIENT FROM HOME, WHO CAME IN DUE TO HYPOGLYCEMIA, NAUSEA AND VOMITING. NO PERTINENT PAST MEDICAL HISTORY. INITIAL DIAGNOSIS OF ABNORMAL LFT'S. CURRENT LABS INCLUDE WBC 10.2, H/H 9.0/27.3, NA/K 141/4.4, BUN/CREA 27/1.4, AST/ALT 52/129, ALK PHOS 230 AND ALB 2.6. KUB SHOWED MODERATE COLONIC STOOL, CORRELATE WITH CONSTIPATION. CXR SHOWED MILD BIBASILAR ATELECTASIS VS INFILTRATE AND BORDERLINE CARDIOMEGALY WITH MILD PULMONARY VASCULAR CONGESTION. ON ZOSYN. GI CONSULT IN PLACE. DC PLAN BACK TO HOME ONCE STABLE.
--- NOTE | 2019-12-17 12:40 | NUR ---
Pt resting in bed, aaox4, no c/o pain, no nausea. Right hand IV intact with ongoing D5 1/2NS @ 80ml/hr. Call light within reach.
[2019-12-17] MEDS ORDERED: diphenhydrAMINE 50 MG/ML VIAL ONE (14:01)
--- NOTE | 2019-12-17 14:15 | NUR ---
Pt left unit with staff via hospital bed for EGD. Pt alert & awake, no signs of distress, no c/o discomfort. Right hand IV intact with ongoing D5 1/2NS @ 80ml/h.
--- NOTE | 2019-12-17 14:57 | NUR ---
Marketing Communications Assistant Note: SW attempted to conduct assessment with patient, but patient was in OR. SW will follow up as needed.
[2019-12-17] MEDS: MIDAZOLAM 2 MG/2 ML VIAL ONE ×2 (15:01→15:30)
[2019-12-17] MEDS: fentaNYL 0.05 MG/ML VIAL ONE ×2 (15:01→15:30)
[2019-12-17] MEDS ORDERED: FUROSEMIDE 20 MG/2 ML VIAL IVP SCH (16:00)
[2019-12-17] MEDS ORDERED: MAGNESIUM CITRATE 300 ML BTL PO SCH (16:00)
--- NOTE | 2019-12-17 16:00 | NUR ---
Patient back in room 105A via hospital bed s/p EGD with biopsy & polypectomy. Pt aaox4, no c/o pain, respirations even & nonlabored in room air. Right hand IV intact & asymptomatic.
[2019-12-17] MEDS: INSULIN LISPRO SLIDING SCALE 100 UNITS/ML VIAL SUBQ PRN (17:32)
--- NOTE | 2019-12-17 19:05 | NUR ---
Report given to pm nurse Mikki.
--- NOTE | 2019-12-17 19:15 | NUR ---
RECEIVED BEDSIDE REPORT FROM AM SHIFT RN JOE, FOR PT'S CONTINUITY OF CARE. PT IS AAOX4, PRIMARILY SLOVENIAN SPEAKING, UNDERSTANDS SOME GREEK. PT LYING DOWN, IS ON ROOM AIR, DENIES ANY PAIN. EXPLAINED TO PT THE ASSEMBLY MACHINE TOOL SETTER ROUTINE, PT VERBALIZED UNDERSTANDING. SAFETY MEASURES IN PLACE, AND CALL LIGHT IS WITHIN REACH. WILL MONITOR PT THROUGHOUT SHIFT.
[2019-12-17] MEDS: ATORVASTATIN 20 MG TAB PO SCH ×2 (21:50→21:51)
--- NOTE | 2019-12-17 21:50 | NUR ---
PT REFUSED PO ATORVASTATIN. PER PT, INFORMED PT THAT ATORVASTATIN IS NOT INDICATED FOR HER ANYMORE. WILL VERIFY WITH MD. ADMINISTERED SCHEDULED PO MEDICATION ORDERED. PT C/O NAUSEA, ADMINISTERED PRN IVP ANTI NAUSEA MEDICATION ORDERED. PT TOLERATED IT WELL. BLOOD GLUCOSE CHECKED AND CHARTED, NO INSULIN COVERAGE NEEDED. 2 OCCULT BLOOD STOOL SAMPLES COLLECTED. SENT TO LAB. PT LYING DOWN COMFORTABLY, DENIES ANY PAIN. WILL CONTINUE TO MONITOR PT.
--- NOTE | 2019-12-17 23:04 | NUR ---
ADMINISTERED SCHEDULED IV ABX ORDERED. VS CHECKED AND CHARTED. PT DENIES NAUSEA, OR PAIN. PT MADE COMFORTABLE. PT CONSUMED SNACK, EXPLAINED AFTER MN, NO MORE TO EAT OR DRINK. PT VERBALIZED UNDERSTANDING. WILL CONTINUE TO MONITOR PT.
[2019-12-18] VITALS: BP 139/41
--- NOTE | 2019-12-18 00:45 | NUR ---
ASSISTED PT TO THE [facility], COLLECTED THE 3RD STOOL SAMPLE FOR OCCULT BLOOD, SENT TO LAB. STOOL IS DIARRHEA CONSISTENCY. PT TOLERATED ACTIVITY. MADE PT COMFORTABLE. PT DENIES NAUSEA OR PAIN. WILL CONTINUE TO MONITOR PT.
--- NOTE | 2019-12-18 02:25 | NUR ---
PT LYING DOWN ASLEEP WITH NO SIGNS OF DISTRESS. WILL CONTINUE OT MONITOR PT.
--- NOTE | 2019-12-18 04:00 | NUR ---
PT LYING DOWN ASLEEP WITH NO SIGNS OF DISTRESS OR DISCOMFORT. WILL CONTINUE OT MONITOR PT.
[2019-12-18] MEDS: hydrALAZINE 25 MG TAB PO SCH ×3 (05:57→21:00)
[2019-12-18 05:58] LABS: ALBUMIN 2.3 g/dL (3.4-5.0); ANION GAP 11.9 (8-16); ASPARTATE AMINOTRANSFERASE 28 U/L (15-37); CARBON DIOXIDE 26.3 mmol/L (21-32); CHLORIDE 104 mmol/L (98-107); CREATININE 1.8 mg/dL (0.6-1.3); GLUCOSE 203 mg/dL (74-106); POTASSIUM 4.2 mmol/L (3.5-5.1); SODIUM SERUM 138 mmol/L (136-145); TOTAL BILIRUBIN 0.2 mg/dL (0.0-1.0); UREA NITROGEN, BLOOD 23 mg/dL (7-18)
[2019-12-18 06:01] LABS: ALBUMIN 2.3 g/dL (3.4-5.0); BILIRUBIN,DIRECT 0.1 mg/dL (0.0-0.3); TOTAL BILIRUBIN 0.2 mg/dL (0.0-1.0)
[2019-12-18] MEDS: INSULIN LISPRO SLIDING SCALE 100 UNITS/ML VIAL SUBQ PRN ×3 (06:03→20:54)
[2019-12-18] MEDS: PIPERACILLIN/TAZOBACTAM 2.25 GM in DEXTROSE 5% 50 ML IV SCH ×4 (06:04→23:37)
[2019-12-18] MEDS: BLOOD GLUCOSE MONITORING 1 DEV DEV FS SCH ×4 (06:05→20:50)
[2019-12-18] MEDS: ONDANSETRON 4 MG/2 ML VIAL IVP PRN (06:06)
--- NOTE | 2019-12-18 06:13 | NUR ---
BLOOD GLUCOSE CHECKED AND CHARTED. PT C/O NAUSEA FEELING. ADMINISTERED INSULIN SUBQ PER SLIDING SCALE PROTOCOL, PRN IVP ANTI NAUSEA MEDICATION, SCHEDULED IV ABX AND PO MEDICATIONS ORDERED. PT TOLERATED THEM WELL. PT DENIES ANY PAIN OR DISCOMFORT. WILL ENDORSE TO AM SHIFT RN FOR PT'S CONTINUITY OF CARE.
[2019-12-18 06:42] LABS: BASOPHILS # (AUTO) 0.1 K/uL (0.00-0.22); BASOPHILS % (AUTO) 1.2 % (0.0-2.0); EOSINOPHILS # (AUTO) 0.1 K/uL (0-0.4); EOSINOPHILS % (AUTO) 1.7 % (0.0-4.0); HEMATOCRIT 25.6 % (36-48); HEMOGLOBIN 8.4 g/dL (12.0-16.0); LYMPHOCYTES # (AUTO) 1.5 K/uL (2.5-16.5); LYMPHOCYTES % (AUTO) 21.2 % (20.5-51.1); MEAN CORPUSCULAR HEMOGLOBIN 29 pg (27-31); MEAN CORPUSCULAR HGB CONC 33 g/dL (33-37); MEAN CORPUSCULAR VOLUME 87.6 fL (80-94); MONOCYTES # (AUTO) 0.6 K/uL (0.8-1.0); MONOCYTES % (AUTO) 7.6 % (1.7-9.3); NEUTROPHILS % (AUTO) 68.3 % (42.2-75.2); PLATELET COUNT (AUTO) 225 K/uL (140-450); RED BLOOD CELL COUNT(AUTO) 2.92 MIL/uL (4.20-5.40); WHITE BLOOD COUNT (AUTO) 7.3 K/uL (4.8-10.8)
--- NOTE | 2019-12-18 07:25 | NUR ---
RECEIVED BEDSIDE SHIFT REPORT FROM SALES REPRESENTATIVE WOMENS HEALTH NURSE FOR CONTINUATION OF CARE. PATIENT WAS IN BED RECEIVING AN ABDOMINAL ULTRASOUND. TOLERATED WELL. WILL CONTINUE TO MONITOR.
[2019-12-18 08:00] VITALS: BP 184/57
[2019-12-18] MEDS: ENOXAPARIN 30 MG/0.3 ML SYR SUBQ SCH (08:40)
[2019-12-18] MEDS: SENNA 8.6 MG TAB PO SCH (08:45)
[2019-12-18] MEDS: ISOSORBIDE MONONITRATE 30 MG TABER PO SCH (08:45)
[2019-12-18] MEDS: METOPROLOL 50 MG TAB PO SCH (08:46)
[2019-12-18] MEDS: amLODIPine 5 MG TAB PO SCH (08:46)
[2019-12-18] MEDS: LOSARTAN 50 MG TAB PO SCH (08:47)
[2019-12-18] MEDS ORDERED: FUROSEMIDE 20 MG/2 ML VIAL IVP SCH (09:00)
--- NOTE | 2019-12-18 10:00 | NUR ---
PATIENTS BLOOD PRESSURE ELEVATED, GIVEN BLOOD PRESSURE MEDICATION SCHEDULED WELL LASIX SCHEDULED AND IT DECREASED TO A SAFE LIMIT. PATIENT IS RESTING IN BED, ALL CONCERNS ADDRESSED. CALL LIGHT ON AND WITHIN REACH. WILL CONTINUE TO MONITOR.
--- NOTE | 2019-12-18 14:20 | NUR ---
ATORVASTATIN REMOVED FROM MEDICATION LIST PER MD'S ORDERS. PATIENT IS RESTING IN BED, HAS HAD 2 VOIDS TODAY. DENIES PAIN AT THIS TIME. ALL CONCERNS ADDRESSED AT THIS TIME. WILL CONTINUE TO MONITOR.
[2019-12-18 16:00] VITALS: BP 178/55
[2019-12-18] MEDS: URSODIOL 300 MG CAP PO SCH (16:45)
--- NOTE | 2019-12-18 16:56 | NUR ---
WAITING FOR CALL BACK FROM DR. PENA DUE TO ELEVATED BLOOD PRESSURE 178/55 ASYMPTOMATIC. NO PRN MEDS AVAILABLE AT THIS TIME. WILL CONTINUE TO MONITOR.
[2019-12-18] MEDS ORDERED: hydrALAZINE 20 MG/ML VIAL IVP PRN (17:50)
[2019-12-18] MEDS ORDERED: cloNIDine 0.1 MG TAB PO PRN (17:50)
[2019-12-18] MEDS ORDERED: cloNIDine 0.1 MG TAB ONE (18:09)
--- NOTE | 2019-12-18 19:25 | NUR ---
BEDSIDE SHIFT REPORT GIVEN TO PLATER APPRENTICE NURSE FOR CONTINUATION OF CARE.
--- NOTE | 2019-12-18 19:29 | NUR ---
RECEIVED ENDORSEMENT AT BEDSIDE FROM AM SHIFT RN. PATIENT LYING ON BED ASLEEP BUT ABLE TO AWAKENED BY VERBAL STIMULI. RESPIRATION EVEN AND UNLABORED. IV SITE ON LEFT HAND AND GAUGE 22. INTACT AND PATENT. [facility] .SKIN IS INTA[facility]. MAY AMBULATE WITH ASSIST. SAFETY MEASURES IN PLACE. CALL LIGHT WITHIN REACH. WE'LL CONTINUE TO MONITOR. Addendum: 12/18/19 at 1940 by Juli Black RN AMEND TIME TO 1925
[2019-12-18 20:00] VITALS: BP 102/23
--- NOTE | 2019-12-18 20:30 | NUR ---
AT 1942 ENDORSED CLONIDINE WAS GIVEN AT THAT TIME; TOOK BLOOD PRESSURE AT 1999 - 102/ 23, HR 51. INFORMED PT TO CALL US IF SHE GET'S UP. BP LOW, WILL MONITOR/ RE-ASESS LATER.
--- NOTE | 2019-12-18 21:00 | NUR ---
APRESOLINE FOR 2099 NOT GIVEN DUE TO BP 102/23 HR 51. WILL RE-ASSESS LATER
[2019-12-18 21:31] VITALS: BP 133/48
--- NOTE | 2019-12-18 21:31 | NUR ---
RE-ASSESSED BP 133/48; HR 51
--- NOTE | 2019-12-18 21:55 | NUR ---
CRITICAL RESULT BLOOD CULTURE BY CUSTOMER SUCCESS ASSOCIATE: (+) COCCI IN CHAIN
--- NOTE | 2019-12-18 21:57 | NUR ---
GODFREY ALONZO CONTCATED FOR DR. RAMSEY; DR. PENA IS THE ONCALL WILL REFER CRITICAL RESULTY: BLOOD CULTURE (+) COCCI IN CHAIN
--- NOTE | 2019-12-18 22:25 | NUR ---
AGAIN TALKED TO EXCHANGE ASKED FOR A CALL BACK FROM RECOVERY ASSISTANT, HAS NOT CALLED BACK IN YET
--- NOTE | 2019-12-18 23:30 | NUR ---
DR. PENA INDUSTRIAL MECHANIC FOR CONNECTED BY EXCHANGE (3RD CALL THIS TIME); GOT HOLD OF DR. PENA- [facility] TO DOSE
--- NOTE | 2019-12-18 23:30 | NUR ---
DIALYSIS DONE 2. 6 LITERS TAKEN OUT; 3 HOURS PER RUBEN, DIALYSIS NURSE
--- NOTE | 2019-12-18 23:48 | NUR ---
CALLED PHARMACY [facility], CONNECTED TO PHARMACIST DR. JEAN PRINCE [facility]
[2019-12-18] MEDS ORDERED: VANCOMYCIN PER PHARMACY MC PRN (23:55)
[2019-12-19] VITALS: BP 153/41
[2019-12-19] MEDS ORDERED: VANCOMYCIN HCL 1,750 MG in NACL 0.9% 500 ML IV SCH (00:40)
--- NOTE | 2019-12-19 01:00 | NUR ---
OVERIDE THE VANCO, 1750 MG ADMINISTERED, VERIFIED W/ FABIOLA RAMÍREZ 1750 MG TO BE GIVEN 1ST DOSE... 2 VIALS WAS OVERRIDE, DISCARDED THE 250 MG (OUT OF THE TOTAL 2000 TAKEN) AND ADMINISTERED 1750
[2019-12-19] MEDS: VANCOMYCIN 1,000 MG VIAL ONE ×2 (01:09→01:16)
[2019-12-19 04:00] VITALS: BP 157/46
--- NOTE | 2019-12-19 04:00 | NUR ---
BP HIGH 157/46; HR 54; PT HAS APRESOLINE DUE AT 0500; WILL ADMINISTER
[2019-12-19] MEDS: hydrALAZINE 25 MG TAB PO SCH ×2 (04:24→13:18)
--- NOTE | 2019-12-19 04:24 | NUR ---
REASSESSED BP AFTER APRESOLINE AT 0500AM GIVEN AT 042, BP 158/81; HR 71. WILL CHECK BP AGAIN LATER Addendum: 12/19/19 at 0629 by Juli Black RN CANCEL WRONG NOTE
[2019-12-19] MEDS: PIPERACILLIN/TAZOBACTAM 2.25 GM in DEXTROSE 5% 50 ML IV SCH ×2 (05:37→12:09)
[2019-12-19] MEDS: BLOOD GLUCOSE MONITORING 1 DEV DEV FS SCH ×3 (05:37→17:02)
[2019-12-19] MEDS: INSULIN LISPRO SLIDING SCALE 100 UNITS/ML VIAL SUBQ PRN ×2 (05:45→12:01)
--- NOTE | 2019-12-19 06:04 | NUR ---
CHECKED THE BP AFTER APRESOLINE GIVEN EARLIER 164/47; HR 52;ADMINISTERED CLONIDINE SBP> 160
--- NOTE | 2019-12-19 06:39 | NUR ---
PT ASLEEP BUT EASILY AWAKENED; PT STILL FOR MONITORING OF BLOOD PRESSURE; WILL RECHECK THE AFTER ADMINISTERING THE CLONIDINE DUE AT 0732. WILL ENDORSE TO NEXT SHIFT
--- NOTE | 2019-12-19 07:10 | NUR ---
RECEIVED BEDSIDE REPORT FROM [employer] NURSE, PT IS ASLEEP, NO S/S OF DISTRESS NOTED. PT IS ON 2L O2 NC PRN FOR COMFORT. SKIN INTACT. IV SITE L WRIST 20 G, INFUSING D5 1/2 NS 10 ML/HR TKO. FALL PRECAUTIONS IN PLACE, BUT PT IS ABLE TO AMBULATE TO THE BEDSIDE COMMODE. CALL LIGHT IS WITHIN REACH. WILL CONTINUE TO MONITOR.
--- NOTE | 2019-12-19 07:25 | NUR ---
PT HAS LOW HEART RATE 44BPM; BP = 141/42 (REASSESSMENT FOR CLONIDINE GIVEN) RAQUEL DIOP RN FOR MONITORING
--- NOTE | 2019-12-19 07:40 | NUR ---
PT STATES THAT SHE USES EYE DROPS AT HOME FOR GLAUCOMA. PT DOES NOT KNOW THE NAME OR DOSE OF MEDICATION. WILL FOLLOW UP WITH RELATIVE.
[2019-12-19 07:43] LABS: BASOPHILS # (AUTO) 0.1 K/uL (0.00-0.22); BASOPHILS % (AUTO) 1.4 % (0.0-2.0); EOSINOPHILS # (AUTO) 0.1 K/uL (0-0.4); EOSINOPHILS % (AUTO) 2.4 % (0.0-4.0); HEMATOCRIT 23.9 % (36-48); LYMPHOCYTES # (AUTO) 1.3 K/uL (2.5-16.5); LYMPHOCYTES % (AUTO) 24.6 % (20.5-51.1); MEAN CORPUSCULAR HEMOGLOBIN 29 pg (27-31); MEAN CORPUSCULAR HGB CONC 33 g/dL (33-37); MEAN CORPUSCULAR VOLUME 86.3 fL (80-94); MONOCYTES # (AUTO) 0.5 K/uL (0.8-1.0); MONOCYTES % (AUTO) 8.5 % (1.7-9.3); NEUTROPHILS # (AUTO) 3.4 K/uL (1.8-7.7); NEUTROPHILS % (AUTO) 63.1 % (42.2-75.2); PLATELET COUNT (AUTO) 206 K/uL (140-450); RED BLOOD CELL COUNT(AUTO) 2.77 MIL/uL (4.20-5.40); RED CELL DISTRIBUTION WIDTH 13.7 % (11.6-13.7); WHITE BLOOD COUNT (AUTO) 5.4 K/uL (4.8-10.8)
[2019-12-19 08:00] VITALS: BP 123/35
[2019-12-19 08:00] LABS: ALBUMIN 2.2 g/dL (3.4-5.0); ANION GAP 9.1 (8-16); CARBON DIOXIDE 27.9 mmol/L (21-32); CHLORIDE 103 mmol/L (98-107); GLUCOSE 220 mg/dL (74-106); SODIUM SERUM 136 mmol/L (136-145); TOTAL BILIRUBIN 0.2 mg/dL (0.0-1.0); UREA NITROGEN, BLOOD 27 mg/dL (7-18)
[2019-12-19 08:59] LABS: ASPARTATE AMINOTRANSFERASE 18 U/L (15-37)
[2019-12-19] MEDS: METOPROLOL 50 MG TAB PO SCH (09:00)
[2019-12-19] MEDS ORDERED: LOSARTAN 50 MG TAB PO SCH (09:00)
[2019-12-19] MEDS ORDERED: amLODIPine 5 MG TAB PO SCH (09:00)
[2019-12-19] MEDS: ISOSORBIDE MONONITRATE 30 MG TABER PO SCH (09:00)
[2019-12-19] MEDS ORDERED: LACTULOSE 20 GM/30 ML UDC PO SCH (09:00)
[2019-12-19] MEDS: ENOXAPARIN 30 MG/0.3 ML SYR SUBQ SCH (09:06)
[2019-12-19] MEDS: URSODIOL 300 MG CAP PO SCH (09:07)
--- NOTE | 2019-12-19 09:13 | NUR ---
AM MEDS ADMINISTERED, PT TOLERATED WELL. HELD THE BP MEDS DUE TO LOW DIASTOLIC BP AND LOW HR THIS AM (123/35; HR 58)
[2019-12-19 11:30] VITALS: BP 158/45
--- NOTE | 2019-12-19 12:56 | NUR ---
PT TOLD ME THAT SHE USES BEPREVE 1.5% EYE DROPS AT HOME, TWICE DAILY ONE DROP IN EACH EYE. PT DOES NOT HAVE THIS MED ON HER HOME MED LIST. I CALLED PHARMACY TO ASK IF WE CARRY THESE EYE DROPS, WE DO NOT. I TRIED TO CONTACT PT'S DAUGHTER IN LAW AYESHA TO BRING IN THE MEDICATION, BUT COULD NOT REACH HER BY PHONE. I ASKED THE PT TO TRY TO GET A HOLD OF AYESHA WITH HER CELL PHONE TO ASK HER TO BRING THE EYE DROPS FROM HOME.
--- NOTE | 2019-12-19 15:55 | NUR ---
PT SEEN BY DR PENA. DR PENA IS DISCHARGING THE PT TODAY.
[2019-12-19 16:00] VITALS: BP 125/53
--- NOTE | 2019-12-19 16:45 | NUR ---
PT HAS DC'D. PT WENT HOME WITH HER GRANDSON. PT AND GRANDSON WERE GIVEN EXTENSIVE DC INSTRUCTIONS, TO WHICH THEY VERBALIZED UNDERSTANDING. PRESCRIPTION FOR NORVASC 10 MG WAS PROVIDED. IV SITE AND WRIST BAND REMOVED. PT LEFT IN STABLE CONDITION WITH ALL HER BELONGINGS.
[2019-12-21 15:06] LABS: ANTI-NUCLEAR ANTIBODY TITER Negative (.)
== END 2019-12-19 16:45 | disposition home or self-care (01) | DRG 392 ==
LOC: MED 10:44 → MTU 13:58
PROVIDERS: ADMIT Internal Medicine Pulmonary Disease; ATTEND Internal Medicine Pulmonary Disease
PROC: 0DB48ZX Excision of Esophagogastric Junction, Via Natural or Artificial Opening Endoscopic, Diagnostic (ICD-10-PCS; 2019-12-17)
PROC: 0DB48ZZ Excision of Esophagogastric Junction, Via Natural or Artificial Opening Endoscopic (ICD-10-PCS; 2019-12-17)
PROC: 0DB98ZX Excision of Duodenum, Via Natural or Artificial Opening Endoscopic, Diagnostic (ICD-10-PCS; principal; 2019-12-17 15:50)
PROC: 0DB68ZX Excision of Stomach, Via Natural or Artificial Opening Endoscopic, Diagnostic (ICD-10-PCS; 2019-12-17 15:50)
DX: A08.4 Viral intestinal infection, unspecified (principal); E44.0 Moderate protein-calorie malnutrition; D64.9 Anemia, unspecified; E11.22 Type 2 diabetes mellitus with diabetic chronic kidney disease; K29.80 Duodenitis without bleeding; K59.00 Constipation, unspecified; I12.9 Hypertensive chronic kidney disease with stage 1 through stage 4 chronic kidney disease, or unspecified chronic kidney disease; N18.9 Chronic kidney disease, unspecified; E11.649 Type 2 diabetes mellitus with hypoglycemia without coma; Z79.899 Other long term (current) drug therapy; Z90.49 Acquired absence of other specified parts of digestive tract
CPT/HCPCS: 36415; 71045; 71046; 74018; 76700; 80053; 80076; 81001; 82272; 82607; 82728; 82948; 83516; 83540; 83605; 83880; 84484; 85025; 86038; 86677; 86704; 86706; 86708; 86709; 86803; 87040; 87081; 87086; 87340; 88305; 88313; 93005; 96361; 96365; 96372; 99285; J0696; J1200; J1650; J1940; J2250; J2405; J2543; J3010; J3370; J3490; J7030; J7060; J8597; Q0092

== ENCOUNTER 2020-01-03 12:26 | Observation (INO) | payer MEDICARE, OTHER ==
[~2020-01-03] VITALS: Ht 162.6 cm; Wt 88.9 kg
[~2020-01-03 12:26] MED LIST changes: +CYCL5TAB PO; -METO25TA PO; +METO50TA20 PO
--- NOTE | 2020-01-03 12:55 | NUR ---
AMBULATE TO 05 WITH STEADY GAIT
--- NOTE | 2020-01-03 12:57 | NUR ---
74 Y/O FEMALE C/O HEADACHE, NAUSEA, VOMITING X 3 DAYS. DENIES ABD PAIN. ABD SOFT, ROUND, NONTENDER. BOWEL SOUNDS X 4 QUAD ACTIVE. 5/10 ACHING TO HEAD. SKIN PALE, DRY, AND WARM TO THE TOUCH. STATES SHE WAS RECENTLY ADMITTED TO THE HOSPITAL. SITTING UPRIGHT IN BED AWAKE AND ALERT. X 1 SIDE RAIL RAISED. VSS MEDHX: ANEMIA, DM, HTN ALLERGIES: NKA
[2020-01-03 12:58] VITALS: BP 116/47
[2020-01-03] MEDS ORDERED: NACL 0.9% 1,000 ML IV ONE (13:25)
[2020-01-03 14:01] LABS: BASOPHILS # (AUTO) 0.1 K/uL (0.00-0.22); BASOPHILS % (AUTO) 0.7 % (0.0-2.0); HEMOGLOBIN 10.1 g/dL (12.0-16.0); LYMPHOCYTES # (AUTO) 0.7 K/uL (2.5-16.5); LYMPHOCYTES % (AUTO) 6.8 % (20.5-51.1); MEAN CORPUSCULAR HEMOGLOBIN 29 pg (27-31); MEAN CORPUSCULAR HGB CONC 33 g/dL (33-37); MEAN CORPUSCULAR VOLUME 89.7 fL (80-94); MONOCYTES # (AUTO) 0.5 K/uL (0.8-1.0); MONOCYTES % (AUTO) 4.3 % (1.7-9.3); NEUTROPHILS # (AUTO) 9.5 K/uL (1.8-7.7); NEUTROPHILS % (AUTO) 88.2 % (42.2-75.2); PLATELET COUNT (AUTO) 375 K/uL (140-450); RED BLOOD CELL COUNT(AUTO) 3.45 MIL/uL (4.20-5.40); RED CELL DISTRIBUTION WIDTH 14.5 % (11.6-13.7); WHITE BLOOD COUNT (AUTO) 10.7 K/uL (4.8-10.8)
[2020-01-03] MEDS ORDERED: HYDROcodone/APAP 5/325 MG 1 TAB TAB PO ONE (14:05)
[2020-01-03] MEDS ORDERED: ONDANSETRON 4 MG/2 ML VIAL IVP ONE (14:05)
[2020-01-03 14:21] LABS: APPEARANCE,URINE CLEAR (CLEAR); BILIRUBIN,URINE NEGATIVE (NEGATIVE); BLOOD, URINE NEGATIVE (NEGATIVE); COLOR,URINE YELLOW (YELLOW); LEUKOCYTE ESTERASE ,URINE TRACE (NEGATIVE); NITRITE, URINE NEGATIVE (NEGATIVE); PH,URINE 5.5 (5.0-9.0); UGLUCOSE NEGATIVE (NEGATIVE)
--- NOTE | 2020-01-03 14:31 | NUR ---
IVP/IVF/PO MEDS GIVEN-NADR AT THIS TIME. WATRM BLANKET GIVEN, VVS, SB W/O ECT NOTED. NO CP, NO SOB AT THIS TIME.
--- NOTE | 2020-01-03 14:32 | NUR ---
UA SENT TO LAB
--- NOTE | 2020-01-03 14:52 | NUR ---
Dr. Gaspar is evaluating the patient at bedside.
--- NOTE | 2020-01-03 14:58 | NUR ---
RESTING IN BED WITH EYES CLOSED, VISIBLE RISE AND FALL OF THE CHEST. NO C/O PAIN AT THIS TIME. WILL CONTINUE TO MONITOR
[2020-01-03 15:08] LABS: RBC,URINE NONE SEEN /HPF (0-5)
[2020-01-03 15:15] LABS: ALBUMIN 3.3 g/dL (3.4-5.0); ANION GAP 14.8 (8-16); ASPARTATE AMINOTRANSFERASE 58 U/L (15-37); CARBON DIOXIDE 25.1 mmol/L (21-32); CHLORIDE 102 mmol/L (98-107); CREATININE 2.1 mg/dL (0.6-1.3); GLUCOSE 223 mg/dL (74-106); LIPASE 104 U/L (73-393); SODIUM SERUM 135 mmol/L (136-145); TOTAL BILIRUBIN 0.3 mg/dL (0.0-1.0); UREA NITROGEN, BLOOD 43 mg/dL (7-18)
[2020-01-03 15:31] LABS: POTASSIUM 6.9 mmol/L (3.5-5.1)
[2020-01-03] MEDS ORDERED: SODIUM BICARBONATE 8.4% PFS 50 MEQ/50 ML SYR IVP ONE (15:40)
[2020-01-03] MEDS ORDERED: INSULIN REGULAR, HUMAN 100 UNIT/ML VIAL SUBQ ONE (15:40)
[2020-01-03] MEDS ORDERED: SODIUM ZIRCONIUM CYCLOSILICATE 10 GM POWD.PACK PO ONE (15:40)
[2020-01-03] MEDS ORDERED: DEXTROSE 50% 50 ML SYR IVP ONE (15:40)
--- NOTE | 2020-01-03 16:20 | NUR ---
PT STATES FEELING OF NAUSEA, PA LYLE MADE AWARE. WILL CONTINUE TO MONITOR
[2020-01-03] MEDS ORDERED: ONDANSETRON 4 MG/2 ML VIAL IVP SCH (16:30)
[2020-01-03] MEDS: NACL 0.9% 1,000 ML IV SCH (17:22)
[2020-01-03] MEDS ORDERED: INSULIN LISPRO SLIDING SCALE 100 UNITS/ML VIAL SUBQ PRN (17:25)
[2020-01-03] MEDS ORDERED: ONDANSETRON 4 MG/2 ML VIAL IVP PRN (17:25)
[2020-01-03] MEDS ORDERED: HYDROcodone/APAP 5/325 MG 1 TAB TAB PO PRN (17:25)
[2020-01-03] MEDS ORDERED: DEXTROSE 50% 50 ML SYR IVP PRN (17:25)
[2020-01-03] MEDS ORDERED: ACETAMINOPHEN 325 MG TAB PO PRN (17:25)
--- NOTE | 2020-01-03 17:29 | NUR ---
RESTING IN BED WITH EYES CLOSED, AROUSABLE TO NAME. DENIES NAUSEA/PAIN. VSS. WILL CONTINUE TO MONITOR
[2020-01-03] MEDS ORDERED: SUMAtriptan 50 MG TAB PO PRN (17:30)
[2020-01-03] MEDS ORDERED: KETOROLAC 15 MG/ML VIAL IVP PRN (17:30)
--- NOTE | 2020-01-03 17:55 | NUR ---
Patient will be admitted to care of DR RAWLS. Admited to MED SURG. Will go to room 124A. Belongings list completed. Report to FABIOLA DIOP.
--- NOTE | 2020-01-03 18:00 | NUR ---
RECEIVED PT FROM ED NURSE HEBER. PT IS AWAKE AND ALERT, AND AMBULATORY. ABLE TO MAKE NEEDS KNOWN. PT MADE A FALL RISK DUE TO OCCASIONAL DIZZINESS. PT IS IN NO ACUTE DISTRESS. ON ROOM AIR, SKIN IS INTACT. IV SITE ON THE L THUMB 22 G. CALL LIGHT GIVEN WITHIN REACH. MRSA NARES SWAB TAKEN. VS ARE: BP 144/54, HR 61, TEMP 97.6, O2 93%, RR 16. WILL CONTINUE TO MONITOR.
--- NOTE | 2020-01-03 19:25 | NUR ---
ENDORSED PT TO FISHERIES DIRECTOR NURSE IN STABLE CONDITION
--- NOTE | 2020-01-03 19:25 | NUR ---
RECEIVED PATIENT IN STABLE CONDITION FROM AM SHIFT NURSE FOR CONTINUITY OF CARE. RESPIRATIONS EVEN, UNLABORED. IV SITE TO LEFT THUMB 24G PATENT/INTACT, INFUSING FLUIDS WELL. NO C/O PAIN. NO S/SX ACUTE DISTRESS. CALL LIGHT WITHIN REACH.WILL CONTINUE TO MONITOR.
[2020-01-03] MEDS: BLOOD GLUCOSE MONITORING 1 DEV DEV FS SCH (20:19)
--- NOTE | 2020-01-03 21:20 | NUR ---
MADE ROUNDS, PATIENT IS ASLEEP AND IN STABLE CONDITION. NO C/O PAIN. NO S/SX ACUTE DISTRESS. CALL LIGHT WITHIN REACH. WILL CONTINUE TO MONITOR.
--- NOTE | 2020-01-03 23:05 | NUR ---
MADE ROUNDS, PATIENT IS ASLEEP AND IN STABLE CONDITION. NO C/O PAIN. NO S/SX ACUTE DISTRESS. CALL LIGHT WITHIN REACH. WILL CONTINUE TO MONITOR.
[2020-01-04] VITALS: BP 133/82
--- NOTE | 2020-01-04 01:00 | NUR ---
PATIENT IS ASLEEP AND CONTINUES IN STABLE CONDITION. NO C/O PAIN. NO S/SX ACUTE DISTRESS. CALL LIGHT WITHIN REACH. WILL CONTINUE TO MONITOR.
--- NOTE | 2020-01-04 02:06 | NUR ---
PATIENT IS AWAKE AND IN STABLE CONDITION. INCONTINENT CARE RENDERED. NO C/O PAIN. NO S/SX ACUTE DISTRESS. CALL LIGHT WITHIN REACH. WILL CONTINUE TO MONITOR.
--- NOTE | 2020-01-04 04:52 | NUR ---
MADE ROUNDS. PATIENT ASLEEP AND IN STABLE CONDITION. NO C/O PAIN. NO S/SX ACUTE DISTRESS. CALL LIGHT WITHIN REACH. WILL CONTINUE TO MONITOR.
[2020-01-04] MEDS: NACL 0.9% 1,000 ML IV SCH ×2 (05:52→08:27)
[2020-01-04 06:12] LABS: BASOPHILS # (AUTO) 0.1 K/uL (0.00-0.22); BASOPHILS % (AUTO) 0.8 % (0.0-2.0); EOSINOPHILS % (AUTO) 0.1 % (0.0-4.0); HEMATOCRIT 28.8 % (36-48); HEMOGLOBIN 9.2 g/dL (12.0-16.0); LYMPHOCYTES # (AUTO) 1.2 K/uL (2.5-16.5); LYMPHOCYTES % (AUTO) 15.3 % (20.5-51.1); MEAN CORPUSCULAR HEMOGLOBIN 29 pg (27-31); MEAN CORPUSCULAR HGB CONC 32 g/dL (33-37); MEAN CORPUSCULAR VOLUME 90.3 fL (80-94); MONOCYTES # (AUTO) 0.5 K/uL (0.8-1.0); MONOCYTES % (AUTO) 6.4 % (1.7-9.3); NEUTROPHILS # (AUTO) 5.8 K/uL (1.8-7.7); NEUTROPHILS % (AUTO) 77.4 % (42.2-75.2); PLATELET COUNT (AUTO) 358 K/uL (140-450); RED BLOOD CELL COUNT(AUTO) 3.19 MIL/uL (4.20-5.40); RED CELL DISTRIBUTION WIDTH 14.5 % (11.6-13.7); WHITE BLOOD COUNT (AUTO) 7.5 K/uL (4.8-10.8)
--- NOTE | 2020-01-04 06:24 | NUR ---
PATIENT AWAKE AND IN STABLE CONDITION. NO C/O PAIN. NO S/SX ACUTE DISTRESS. CALL LIGHT WITHIN REACH. WILL CONTINUE TO MONITOR.
[2020-01-04 06:31] LABS: ANION GAP 9.1 (8-16); CARBON DIOXIDE 29.8 mmol/L (21-32); CHLORIDE 105 mmol/L (98-107); CREATININE 1.7 mg/dL (0.6-1.3); GLUCOSE 129 mg/dL (74-106); POTASSIUM 4.9 mmol/L (3.5-5.1); SODIUM SERUM 139 mmol/L (136-145); UREA NITROGEN, BLOOD 35 mg/dL (7-18)
[2020-01-04] MEDS: BLOOD GLUCOSE MONITORING 1 DEV DEV FS SCH ×2 (06:33→11:37)
--- NOTE | 2020-01-04 07:22 | NUR ---
ENDORSED PATIENT TO AM SHIFT NURSE IN STABLE CONDITION FOR CONTINUITY OF CARE.
--- NOTE | 2020-01-04 07:23 | NUR ---
RECEIVED REPORT FROM CHANGE MANAGEMENT NURSE TIERNEY FOR CONTINUITY OF CARE. PT IN STABLE CONDITION. RESPIRATIONS EVEN AND UNLABORED, ROOM AIR. IV INTACT AND PATENT. SAFETY MEASURES IN PLACE. BED IN LOW POSITION. BED ALARM ON. CALL LIGHT AT BEDSIDE. WILL CONTINUE TO MONITOR.
[2020-01-04 08:00] VITALS: BP 131/53
--- NOTE | 2020-01-04 08:15 | NUR ---
GAVE PRN MEDICATION FOR VOMITING AT THIS TIME. PT TOLERATED WELL.
--- NOTE | 2020-01-04 08:31 | NUR ---
PATIENT HAS BEEN SCREENED AND CATEGORIZED HIGH NUTRITION RISK. PATIENT WILL BE SEEN WITHIN 1-2 DAYS OF ADMISSION. 01/04/20-01/05/[address]
[2020-01-04] MEDS ORDERED: ASPIRIN 81 MG TAB.CHEW PO SCH (09:00)
[2020-01-04] MEDS ORDERED: ENOXAPARIN 30 MG/0.3 ML SYR SUBQ SCH (09:00)
--- NOTE | 2020-01-04 09:00 | NUR ---
PT VERBALIZED UNABLE TO HOLD DOWN MEDICATION AT THIS TIME. DAILY ASPRIN 81MG NOT GIVEN AT THIS TIME. PT IN STABLE CONDITION.
--- NOTE | 2020-01-04 11:22 | NUR ---
PT RESTING AT THIS TIME. RESPIRATIONS EVEN AND UNLABORED. BED IN LOW POSITION. BED ALARM ON. CALL LIGHT AT BEDSIDE. WILL CONTINUE TO MONITOR.
--- NOTE | 2020-01-04 13:05 | NUR ---
PT SLEEPING AT THIS TIME. RESPIRATIONS EVEN AND UNLABORED. BED IN LOW POSITION. BED ALARM ON. CALL LIGHT AT BEDSIDE. WILL CONTINUE TO MONITOR.
[2020-01-04] MEDS ORDERED: SUMA100T1 PO (14:27)
--- NOTE | 2020-01-04 15:32 | NUR ---
ASSISTED PT TO RESTROOM AT THIS TIME. PT STEADY GAIT, NO C/O DIZZINESS AT THIS TIME.
--- NOTE | 2020-01-04 17:45 | NUR ---
GAVE DISCHARGE INSTRUCTIONS AND PRESCRIPTION TO TAKE TO HOME PHARMACY. PT VERBALIZED UNDERSTANDING OF INSTRUCTIONS. IV REMOVED, LUMEN INTACT. ID BAND REMOVED. PT WHEELED TO LOBBY IN IN STABLE CONDITION. FAMILY WAITING WITH VEHICLE.
== END 2020-01-04 17:43 | disposition home or self-care (01) ==
LOC: MED 12:26 → MTU 17:22
PROVIDERS: ADMIT Hospitalist; ATTEND Hospitalist
DX: E11.22 Type 2 diabetes mellitus with diabetic chronic kidney disease (principal); I12.9 Hypertensive chronic kidney disease with stage 1 through stage 4 chronic kidney disease, or unspecified chronic kidney disease; R11.2 Nausea with vomiting, unspecified; R42 Dizziness and giddiness; N18.9 Chronic kidney disease, unspecified; D64.9 Anemia, unspecified; G43.909 Migraine, unspecified, not intractable, without status migrainosus; E78.5 Hyperlipidemia, unspecified; Z79.899 Other long term (current) drug therapy
CPT/HCPCS: 36415; 71045; 80048; 80053; 81001; 82948; 83690; 83735; 84484; 85025; 87081; 87086; 93005; 96361; 96372; 96374; 96375; 96376; 99285; G0378; J1650; J1815; J2405; J7030; Q0092

== ENCOUNTER 2021-02-25 10:55 | Observation (INO) | payer MEDICARE, OTHER, SELFPAY ==
[~2021-02-25] VITALS: Ht 162.6 cm; Wt 80.7 kg
[~2021-02-25 10:55] MED LIST changes: +AMLO10TA PO; +CALC667C12 PO; -CHOL100037 PO; +CHOL200035 PO; -DOCU100C16 PO; +FERR325E14 PO; +FURO-570 PO; +GABA100C PO; -HYDR-133 PO; -HYDR100T79 PO; -INSU100S45 SUBQ; -LOSA50TA66 PO; -METO50TA20 PO; -OMEP20TC12 PO; +POTA10TE30 PO; +PSEU60TA52 PO; +ZAR2.5 PO
[2021-02-25 11:05] VITALS: BP 148/56
[2021-02-25] MEDS ORDERED: NACL 0.9% 1,000 ML IV ONE (12:25)
[2021-02-25] MEDS ORDERED: ONDANSETRON 4 MG/2 ML VIAL IVP ONE (12:25)
[2021-02-25 12:54] LABS: BASOPHILS % (AUTO) 0.5 % (0.0-2.0); EOSINOPHILS % (AUTO) 0.2 % (0.0-4.0); HEMATOCRIT 37.8 % (36-48); HEMOGLOBIN 12.5 g/dL (12.0-16.0); LYMPHOCYTES # (AUTO) 1.4 K/uL (2.5-16.5); MEAN CORPUSCULAR HEMOGLOBIN 29 pg (27-31); MEAN CORPUSCULAR HGB CONC 33 g/dL (33-37); MEAN CORPUSCULAR VOLUME 87.1 fL (80-94); MONOCYTES # (AUTO) 0.4 K/uL (0.8-1.0); MONOCYTES % (AUTO) 3.7 % (1.7-9.3); NEUTROPHILS # (AUTO) 8.1 K/uL (1.8-7.7); NEUTROPHILS % (AUTO) 81.6 % (42.2-75.2); PLATELET COUNT (AUTO) 342 K/uL (140-450); RED BLOOD CELL COUNT(AUTO) 4.34 MIL/uL (4.20-5.40); RED CELL DISTRIBUTION WIDTH 13.9 % (11.6-13.7); WHITE BLOOD COUNT (AUTO) 9.9 K/uL (4.8-10.8)
[2021-02-25 13:05] LABS: PROTHROMBIN TIME 9.3 secs (10.8-13.4)
[2021-02-25 13:10] LABS: ALBUMIN 3.7 g/dL (3.4-5.0); ANION GAP 8.4 (8-16); ASPARTATE AMINOTRANSFERASE 18 U/L (15-37); CARBON DIOXIDE 36.3 mmol/L (21-32); CHLORIDE 93 mmol/L (98-107); CREATININE 2.9 mg/dL (0.6-1.3); GLUCOSE 289 mg/dL (74-106); POTASSIUM 3.7 mmol/L (3.5-5.1); SODIUM SERUM 134 mmol/L (136-145); TOTAL BILIRUBIN 0.3 mg/dL (0.0-1.0)
[2021-02-25 13:13] LABS: UREA NITROGEN, BLOOD 80 mg/dL (7-18)
[2021-02-25] MEDS ORDERED: MECLIZINE 25 MG TAB PO ONE (14:25)
[2021-02-25] MEDS ORDERED: DIAZEPAM PFS 10 MG/2 ML SYR IVP ONE (14:25)
[2021-02-25 14:35] LABS: APPEARANCE,URINE CLEAR (CLEAR); BILIRUBIN,URINE NEGATIVE (NEGATIVE); BLOOD, URINE TRACE-L (NEGATIVE); COLOR,URINE YELLOW (YELLOW); LEUKOCYTE ESTERASE ,URINE NEGATIVE (NEGATIVE); NITRITE, URINE NEGATIVE (NEGATIVE); UGLUCOSE 2+ (NEGATIVE)
[2021-02-25 14:51] LABS: RBC,URINE 0-5 /HPF (0-5); WBC,URINE NONE SEEN /HPF (0-5)
[2021-02-25] MEDS ORDERED: ONDANSETRON 4 MG/2 ML VIAL IVP PRN (16:25)
[2021-02-25] MEDS ORDERED: KCL 20 MEQ/WATER INJ PREMIX 200 ML IV PRN (16:25)
[2021-02-25] MEDS ORDERED: POTASSIUM CHLORIDE 10 MEQ TABER PO PRN (16:25)
[2021-02-25] MEDS ORDERED: MAG SULF 2000 MG/WATER PREMIX 50 ML IV PRN (16:25)
[2021-02-25] MEDS ORDERED: ACETAMINOPHEN 325 MG TAB PO PRN (16:25)
[2021-02-25] MEDS ORDERED: MAGNESIUM OXIDE 400 MG TAB PO PRN (16:25)
[2021-02-25] MEDS ORDERED: MECLIZINE 25 MG TAB PO PRN (16:50)
[2021-02-25] MEDS ORDERED: FURO-571 PO (18:19)
[2021-02-25 20:00] VITALS: BP 120/51
[2021-02-26] VITALS: BP 143/56
[2021-02-26 04:00] VITALS: BP 124/60
[2021-02-26 06:39] LABS: BASOPHILS # (AUTO) 0.1 K/uL (0.00-0.22); BASOPHILS % (AUTO) 0.5 % (0.0-2.0); EOSINOPHILS % (AUTO) 0.2 % (0.0-4.0); HEMATOCRIT 33.8 % (36-48); HEMOGLOBIN 11.1 g/dL (12.0-16.0); LYMPHOCYTES # (AUTO) 2.5 K/uL (2.5-16.5); LYMPHOCYTES % (AUTO) 27.6 % (20.5-51.1); MEAN CORPUSCULAR HEMOGLOBIN 29 pg (27-31); MEAN CORPUSCULAR HGB CONC 33 g/dL (33-37); MEAN CORPUSCULAR VOLUME 87.4 fL (80-94); MONOCYTES # (AUTO) 0.7 K/uL (0.8-1.0); MONOCYTES % (AUTO) 7.3 % (1.7-9.3); NEUTROPHILS # (AUTO) 5.9 K/uL (1.8-7.7); NEUTROPHILS % (AUTO) 64.4 % (42.2-75.2); PLATELET COUNT (AUTO) 299 K/uL (140-450); RED BLOOD CELL COUNT(AUTO) 3.87 MIL/uL (4.20-5.40); RED CELL DISTRIBUTION WIDTH 13.8 % (11.6-13.7); WHITE BLOOD COUNT (AUTO) 9.1 K/uL (4.8-10.8)
[2021-02-26 07:18] LABS: ANION GAP 10.9 (8-16); CARBON DIOXIDE 34.9 mmol/L (21-32); CHLORIDE 97 mmol/L (98-107); GLUCOSE 236 mg/dL (74-106); POTASSIUM 3.8 mmol/L (3.5-5.1); SODIUM SERUM 139 mmol/L (136-145)
[2021-02-26 07:27] LABS: UREA NITROGEN, BLOOD 80 mg/dL (7-18)
[2021-02-26 08:00] VITALS: BP 131/50
[2021-02-26] MEDS ORDERED: INSULIN LISPRO SLIDING SCALE 100 UNITS/ML VIAL SUBQ PRN (11:20)
[2021-02-26] MEDS ORDERED: MECL-416 PO (11:30)
[2021-02-26] MEDS ORDERED: ONDA4TAB PO (11:30)
[2021-02-26] MEDS ORDERED: MECLIZINE 25 MG TAB PO SCH (11:30)
[2021-02-26] MEDS ORDERED: INSULIN LISPRO 100 UNITS/ML VIAL SUBQ SCH (11:42)
[2021-02-26] MEDS: BLOOD GLUCOSE MONITORING 1 DEV DEV FS SCH ×2 (11:57→16:01)
[2021-02-26 12:00] VITALS: BP 133/55
[2021-02-26 16:00] VITALS: BP 158/60
[2021-02-26] MEDS ORDERED: INSULIN LANTUS 100 UNITS/ML 10 ML VIAL SUBQ SCH (21:00)
[2021-02-27] MEDS ORDERED: amLODIPine 5 MG TAB PO SCH (09:00)
[2021-02-27] MEDS ORDERED: ECOTRIN 81 MG TABEC PO SCH (09:00)
== END 2021-02-26 18:14 | disposition home or self-care (01) ==
LOC: MED 10:55 → MTU 16:48
PROVIDERS: ADMIT Internal Medicine; ATTEND Internal Medicine
DX: R42 Dizziness and giddiness (principal); Z20.822 Contact with and (suspected) exposure to COVID-19; R11.2 Nausea with vomiting, unspecified; I12.9 Hypertensive chronic kidney disease with stage 1 through stage 4 chronic kidney disease, or unspecified chronic kidney disease; E11.22 Type 2 diabetes mellitus with diabetic chronic kidney disease; N18.4 Chronic kidney disease, stage 4 (severe); E11.40 Type 2 diabetes mellitus with diabetic neuropathy, unspecified; Z90.49 Acquired absence of other specified parts of digestive tract; Z79.899 Other long term (current) drug therapy
CPT/HCPCS: 36415; 70450; 71045; 80048; 80053; 81001; 82948; 84484; 85025; 85610; 85730; 86886; 86900; 86901; 87081; 87426; 93005; 96361; 96372; 96374; 96375; 97163; 99285; G0378; J1644; J1815; J2405; J3360; J8597

== ENCOUNTER 2021-06-17 18:11 | Emergency (ER) | payer MEDICARE, OTHER, SELFPAY ==
[~2021-06-17] VITALS: Ht 162.6 cm; Wt 79.8 kg
[~2021-06-17 18:11] MED LIST changes: -CYCL5TAB PO; -FURO-570 PO; +FURO-571 PO; +MECL-416 PO; +ONDA4TAB PO; -PSEU60TA52 PO; -ZAR2.5 PO
--- NOTE | 2021-06-17 18:12 | NUR ---
Pt POLY via gurney to bed 12.
[2021-06-17 18:26] VITALS: BP 145/36
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
[2021-06-17] MEDS ORDERED: METH4TAB1 PO (18:37)
[2021-06-17] MEDS ORDERED: ONDA4TAB PO (18:37)
[2021-06-17] MEDS ORDERED: MECL-303 PO (18:37)
[2021-06-17] MEDS ORDERED: NACL 0.9% 1,000 ML IV ONE (19:05)
[2021-06-17] MEDS ORDERED: INSULIN REGULAR, HUMAN 100 UNIT/ML VIAL IV ONE (19:05)
--- NOTE | 2021-06-17 19:23 | NUR ---
Pt report given to VASILIY RN. Transfer of care at this time.
--- NOTE | 2021-06-17 19:24 | NUR ---
received report from Ifeoma technical assistance consultant for continuity of care
[2021-06-17 19:31] LABS: BASOPHILS % (AUTO) 0.1 % (0.0-2.0); HEMATOCRIT 35.5 % (36-48); HEMOGLOBIN 11.6 g/dL (12.0-16.0); LYMPHOCYTES # (AUTO) 1.9 K/uL (2.5-16.5); LYMPHOCYTES % (AUTO) 10.6 % (20.5-51.1); MEAN CORPUSCULAR HEMOGLOBIN 29 pg (27-31); MEAN CORPUSCULAR HGB CONC 33 g/dL (33-37); MONOCYTES # (AUTO) 1.6 K/uL (0.8-1.0); NEUTROPHILS # (AUTO) 14.2 K/uL (1.8-7.7); NEUTROPHILS % (AUTO) 80.3 % (42.2-75.2); PLATELET COUNT (AUTO) 352 K/uL (140-450); RED BLOOD CELL COUNT(AUTO) 4.08 MIL/uL (4.20-5.40); RED CELL DISTRIBUTION WIDTH 14.4 % (11.6-13.7); WHITE BLOOD COUNT (AUTO) 17.7 K/uL (4.8-10.8)
[2021-06-17 19:47] LABS: ALBUMIN 3.7 g/dL (3.4-5.0); ASPARTATE AMINOTRANSFERASE 15 U/L (15-37); CARBON DIOXIDE 36.5 mmol/L (21-32); CHLORIDE 88 mmol/L (98-107); CREATININE 3.6 mg/dL (0.6-1.3); POTASSIUM 3.5 mmol/L (3.5-5.1); SODIUM SERUM 131 mmol/L (136-145); TOTAL BILIRUBIN 0.2 mg/dL (0.0-1.0)
[2021-06-17 19:54] LABS: GLUCOSE 443 mg/dL (74-106); UREA NITROGEN, BLOOD 125 mg/dL (7-18)
[2021-06-17 20:36] LABS: ACETONE, SERUM NEGATIVE (NEGATIVE)
--- NOTE | 2021-06-17 21:13 | NUR ---
Called daughter in law to get patient picked up. daughter in law is going to have someone pick patient up
--- NOTE | 2021-06-17 21:25 | NUR ---
patient's grandson called about picking up patient at around 22:30 today
--- NOTE | 2021-06-17 21:30 | NUR ---
IV removed, catheter intact and site benign. Applied folded 4x4 gauze and tape to stop bleeding.
--- NOTE | 2021-06-17 21:34 | NUR ---
patient ambulated to the bathroom for urine collection
[2021-06-17 21:41] VITALS: BP 171/51
--- NOTE | 2021-06-17 21:41 | NUR ---
Patient discharged with v/s stable. Written and verbal after care instructions given and explained. Patient verbalized understanding. Ambulatory with steady gait. ID band removed. All questions addressed prior to discharge. Advised to follow up with PMD.
[2021-06-17 22:34] LABS: APPEARANCE,URINE CLEAR (CLEAR); BILIRUBIN,URINE NEGATIVE (NEGATIVE); BLOOD, URINE TRACE-I (NEGATIVE); COLOR,URINE YELLOW (YELLOW); LEUKOCYTE ESTERASE ,URINE NEGATIVE (NEGATIVE); NITRITE, URINE NEGATIVE (NEGATIVE); PH,URINE 6.5 (5.0-9.0); UGLUCOSE TRACE (NEGATIVE)
[2021-06-17 22:47] LABS: RBC,URINE 0-5 /HPF (0-5); WBC,URINE 0-5 /HPF (0-5)
== END 2021-06-17 21:41 | disposition home or self-care (01) ==
LOC: MED 18:11
DX: E11.649 Type 2 diabetes mellitus with hypoglycemia without coma (principal); I10 Essential (primary) hypertension; J45.909 Unspecified asthma, uncomplicated; Z79.899 Other long term (current) drug therapy
CPT/HCPCS: 36415; 80053; 81001; 82009; 82948; 85025; 87086; 96361; 96374; 99283; J1815; J7030

== ENCOUNTER 2022-01-03 17:18 | Emergency (ER) | payer MEDICARE, OTHER ==
[~2022-01-03] VITALS: Ht 149.9 cm; Wt 89.6 kg
[~2022-01-03 17:18] MED LIST changes: +MECL-303 PO; +METH4TAB1 PO; +POTA10TA70 PO; -POTA10TE30 PO
[2022-01-03 17:24] VITALS: BP 161/63
--- NOTE | 2022-01-03 17:34 | NUR ---
PT W/C ASSSISTED TO BED 1.
--- NOTE | 2022-01-03 17:37 | NUR ---
DR. POWER AT PT BEDSIDE FOR FURTHER EVALUATION.
--- NOTE | 2022-01-03 17:41 | NUR ---
89 Y/O FEMALE C/O N/V/D AND GENERAL WEAKNESS X3DAYS. ABD IS SOFT, ROUND, BOWEL SOUNDS ACTIVE X4, LAST BM 01/03/22. DENIES FEVER/CHILLS. PMH: HTN NKA
[2022-01-03] MEDS ORDERED: PROCHLORPERAZINE 10 MG/2 ML VIAL IVP ONE (18:35)
[2022-01-03] MEDS ORDERED: diphenhydrAMINE 50 MG/ML VIAL IVP ONE (18:35)
--- NOTE | 2022-01-03 18:39 | NUR ---
LADIES' LOCKER ROOM ATTENDANT AT PT BEDSIDE.
--- NOTE | 2022-01-03 18:53 | NUR ---
IV ESTABLISHED TO R AC 20G, GOOD BLOOD RETURN, BLOOD COLLECTED GAVE TO CHANNEL MANAGER AT PT BEDSIDE.
[2022-01-03 19:07] LABS: BASOPHILS % (AUTO) 0.5 % (0.0-2.0); EOSINOPHILS % (AUTO) 0.4 % (0.0-4.0); HEMOGLOBIN 9.3 g/dL (12.0-16.0); LYMPHOCYTES # (AUTO) 0.4 K/uL (2.5-16.5); LYMPHOCYTES % (AUTO) 4.3 % (20.5-51.1); MEAN CORPUSCULAR HEMOGLOBIN 28 pg (27-31); MEAN CORPUSCULAR HGB CONC 32 g/dL (33-37); MEAN CORPUSCULAR VOLUME 85.8 fL (80-94); MONOCYTES # (AUTO) 0.3 K/uL (0.8-1.0); MONOCYTES % (AUTO) 3.4 % (1.7-9.3); NEUTROPHILS # (AUTO) 7.6 K/uL (1.8-7.7); NEUTROPHILS % (AUTO) 91.4 % (42.2-75.2); PLATELET COUNT (AUTO) 292 K/uL (140-450); RED BLOOD CELL COUNT(AUTO) 3.38 MIL/uL (4.20-5.40); RED CELL DISTRIBUTION WIDTH 15.7 % (11.6-13.7); WHITE BLOOD COUNT (AUTO) 8.3 K/uL (4.8-10.8)
--- NOTE | 2022-01-03 19:29 | NUR ---
GAVE REPORT TO FABIOLA GONZALEZ. TRANSFER OF CARE AT THIS TIME.
[2022-01-03 19:30] LABS: ALBUMIN 3.2 g/dL (3.4-5.0); ANION GAP 9.3 (8-16); ASPARTATE AMINOTRANSFERASE 23 U/L (15-37); CARBON DIOXIDE 33.4 mmol/L (21-32); CHLORIDE 97 mmol/L (98-107); CREATININE 2.5 mg/dL (0.6-1.3); GLUCOSE 175 mg/dL (74-106); POTASSIUM 3.7 mmol/L (3.5-5.1); SODIUM SERUM 136 mmol/L (136-145); TOTAL BILIRUBIN 0.4 mg/dL (0.0-1.0)
[2022-01-03 19:31] LABS: UREA NITROGEN, BLOOD 76 mg/dL (7-18)
--- NOTE | 2022-01-03 21:24 | NUR ---
Dr. Santoro at bedside to explain results.
--- NOTE | 2022-01-03 21:52 | NUR ---
Shade perales in [facility] - 01/03/22 at 2217 by [email or web address] PO challenge-normal
--- NOTE | 2022-01-03 21:52 | NUR ---
PO challenge-normal ,Dr. Santoro notified.
[2022-01-03] MEDS ORDERED: AZIT250T4 PO (22:06)
[2022-01-03 22:37] VITALS: BP 151/66
--- NOTE | 2022-01-03 22:37 | NUR ---
Patient discharged with v/s stable. Written and verbal after care instructions given and explained. Patient alert, oriented and verbalized understanding of instructions. Ambulatory with steady gait. All questions addressed prior to discharge. ID band removed. Patient advised to follow up with PMD. Rx of Azithromycin given. Patient educated on indication of medication including possible reaction and side effects. Opportunity to ask questions provided and answered.
== END 2022-01-03 22:37 | disposition home or self-care (01) ==
LOC: MED 17:18
DX: K52.9 Noninfective gastroenteritis and colitis, unspecified (principal); J18.9 Pneumonia, unspecified organism; E11.22 Type 2 diabetes mellitus with diabetic chronic kidney disease; I12.9 Hypertensive chronic kidney disease with stage 1 through stage 4 chronic kidney disease, or unspecified chronic kidney disease; N18.9 Chronic kidney disease, unspecified; D53.9 Nutritional anemia, unspecified; I50.9 Heart failure, unspecified; Z79.4 Long term (current) use of insulin; Z79.899 Other long term (current) drug therapy
CPT/HCPCS: 36415; 71045; 80053; 83735; 83880; 84484; 85025; 93005; 96374; 96375; 99285; J0780; J1200; Q0092

== ENCOUNTER 2022-02-13 11:38 | Inpatient (IN) | payer MEDICARE, OTHER ==
[~2022-02-13] VITALS: Ht 160 cm; Wt 88.0 kg
[~2022-02-13 11:38] MED LIST changes: +AZIT250T4 PO
[2022-02-13 11:47] VITALS: BP 155/73
--- NOTE | 2022-02-13 12:29 | NUR ---
LAB COLLECTING BLOODWORK
[2022-02-13 12:50] LABS: BASOPHILS # (AUTO) 0.1 K/uL (0.00-0.22); BASOPHILS % (AUTO) 1.2 % (0.0-2.0); EOSINOPHILS # (AUTO) 0.1 K/uL (0-0.4); EOSINOPHILS % (AUTO) 0.8 % (0.0-4.0); HEMOGLOBIN 10.5 g/dL (12.0-16.0); LYMPHOCYTES # (AUTO) 0.9 K/uL (2.5-16.5); LYMPHOCYTES % (AUTO) 8.7 % (20.5-51.1); MEAN CORPUSCULAR HEMOGLOBIN 27 pg (27-31); MEAN CORPUSCULAR HGB CONC 32 g/dL (33-37); MEAN CORPUSCULAR VOLUME 82.9 fL (80-94); MONOCYTES # (AUTO) 0.3 K/uL (0.8-1.0); MONOCYTES % (AUTO) 2.8 % (1.7-9.3); NEUTROPHILS # (AUTO) 8.9 K/uL (1.8-7.7); NEUTROPHILS % (AUTO) 86.5 % (42.2-75.2); PLATELET COUNT (AUTO) 287 K/uL (140-450); RED BLOOD CELL COUNT(AUTO) 3.97 MIL/uL (4.20-5.40); RED CELL DISTRIBUTION WIDTH 16.3 % (11.6-13.7); WHITE BLOOD COUNT (AUTO) 10.3 K/uL (4.8-10.8)
--- NOTE | 2022-02-13 13:01 | NUR ---
76 Y/O FEMALE BIB SELF C/O DIZZINESS X 5DAYS. PT STATES SHE WAS RECENTLY SEEN BY PCP AND DIAGNOSED WITH VERTIGO. SHE HAS BEEN TAKING MEDICATION TO TREAT VERTIGO FOR 5 DAYS WITH NO RELIEF. PT STATES SHE HAS CONTINUED HAVING NAUSEA, VOMITING. PT DENIES FEVER/CHILLS. BED IN LOWEST POSITION. BED RAIL X1. MONITOR IN PLACE. PMH: DM, HTN, HLD, RA MEDS: NEURONTIN, POTASSIUM, ATROVASTATIN, AMMLODIPINE, CALCIUM, ONDASTETRON, MCLIZINE, FUROSEMIDE, ALLOPURINOL NKA
[2022-02-13 13:13] LABS: ALBUMIN 3.8 g/dL (3.4-5.0); ANION GAP 12.4 (8-16); ASPARTATE AMINOTRANSFERASE 36 U/L (15-37); CARBON DIOXIDE 29.4 mmol/L (21-32); CHLORIDE 93 mmol/L (98-107); CREATININE 2.8 mg/dL (0.6-1.3); GLUCOSE 233 mg/dL (74-106); POTASSIUM 3.8 mmol/L (3.5-5.1); SODIUM SERUM 131 mmol/L (136-145); TOTAL BILIRUBIN 0.3 mg/dL (0.0-1.0)
[2022-02-13 13:19] LABS: UREA NITROGEN, BLOOD 90 mg/dL (7-18)
[2022-02-13] MEDS ORDERED: NACL 0.9% 1,000 ML IV ONE (13:20)
--- NOTE | 2022-02-13 13:43 | NUR ---
DR. POWER BEDSIDE EVALUATING PT
[2022-02-13] MEDS ORDERED: PROCHLORPERAZINE 5 MG TAB PO ONE (13:55)
--- NOTE | 2022-02-13 14:15 | NUR ---
VINCE SENT TO LAB
--- NOTE | 2022-02-13 14:23 | NUR ---
XRAY AT BEDSIDE
[2022-02-13 14:44] LABS: BILIRUBIN,URINE NEGATIVE (NEGATIVE); BLOOD, URINE 2+ (NEGATIVE); COLOR,URINE YELLOW (YELLOW); LEUKOCYTE ESTERASE ,URINE 2+ (NEGATIVE); NITRITE, URINE NEGATIVE (NEGATIVE); UGLUCOSE NEGATIVE (NEGATIVE)
[2022-02-13 14:46] LABS: APPEARANCE,URINE HAZY (CLEAR)
[2022-02-13 14:52] LABS: RBC,URINE 0-5 /HPF (0-5)
--- NOTE | 2022-02-13 15:04 | NUR ---
PT TAKEN TO CT SCAN VIA GINA
--- NOTE | 2022-02-13 15:23 | NUR ---
PT'S O2 SAT WENT DOWN TO 87% ON ROOM AIR, TITRATED BACK TO 97% ON 3L NC
[2022-02-13] MEDS ORDERED: cefTRIAXone 1,000 MG VIAL ONE (15:26)
[2022-02-13] MEDS ORDERED: ACETAMINOPHEN 325 MG TAB PO PRN (15:35)
[2022-02-13] MEDS: NACL 0.9% 1,000 ML IV SCH (15:35)
[2022-02-13] MEDS ORDERED: ONDANSETRON 4 MG/2 ML VIAL IVP PRN (15:35)
[2022-02-13] MEDS ORDERED: DEXTROSE 50% 50 ML SYR IVP PRN (15:45)
--- NOTE | 2022-02-13 16:11 | NUR ---
Patient will be admitted to care of DR. RAWLS. Admited to TELE. Will go to room 106B. Belongings list completed. Report to FABIOLA GÓMEZ. PT TAKEN VIA GINA BY FABIOLA PEREZ AND FABIOLA BURLESON VIA GINA
--- NOTE | 2022-02-13 16:30 | NUR ---
RECEIVED PT FROM ER, FABIOLA AVALOS. SOB NOTED ON EXERTION. ON 3L NC. 02 @ 100%. HOB ELEVATED. WHEN ASLEEP PT HAS IRREGULAR BREATHING AND GASPS FOR AIR. A/O X4. CONGOLESE SPEAKING. ON CCHO 60 GM DIET. CONTINENT HOWEVER, STATES, DIZZINESS AND HEADACHE FOR 5 DAYS. GRAND-DAUGHTER CONTACTED (LEIDY). LAC #20 WITH NS @ 75 ML/HR. NEEDS ALL MET AT THIS TIME. SAFETY PRECAUTIONS IN PLACE. WILL CONTINUE TO MONITOR.
[2022-02-13] MEDS: INSULIN LISPRO SLIDING SCALE 100 UNITS/ML VIAL SUBQ PRN ×2 (17:13→21:49)
[2022-02-13] MEDS: BLOOD GLUCOSE MONITORING 1 DEV DEV FS SCH ×2 (17:16→21:50)
[2022-02-13] MEDS: CALCIUM ACETATE 667 MG TAB PO SCH (17:24)
[2022-02-13] MEDS: MECLIZINE 25 MG TAB PO SCH (17:24)
--- NOTE | 2022-02-13 19:15 | NUR ---
PT STABLE. HOB ELEVATED. NEEDS ALL MET. SAFETY MEASURES IN PLACE.
--- NOTE | 2022-02-13 19:20 | NUR ---
REPORT GIVEN TO NIGHTSMAFT RNJAC FOR CONTINUITY OF CARE.
--- NOTE | 2022-02-13 19:30 | NUR ---
RECEIVED BEDSIDE REPORT FROM DAY SHIFT RN FOR CONTINUITY OF CARE. PT IS SLEEPING IN BED COMFORTABLY. NC 3L. PT IS NOT IN ANY DISTRESS. BREATHING EVEN AND UNLABORED. IVF RUNNING PER MD ORDER. CALL LIGHT WITHIN REACH. ALL SAFETY MEASURES TAKEN. WILL CONTINUE TO MONITOR THE PT.
[2022-02-13 20:00] VITALS: BP 144/63
[2022-02-13] MEDS: INSULIN LANTUS 100 UNITS/ML 10 ML VIAL SUBQ SCH (21:49)
[2022-02-13] MEDS: FERROUS SULFATE 325 MG TABEC PO SCH (21:51)
--- NOTE | 2022-02-13 21:55 | NUR ---
ALL DUE MEDS GIVEN. NO ADVERSE REACTION NOTED. WILL CONTINUE TO MONITOR THE PT.
[2022-02-14] VITALS: BP 154/48
--- NOTE | 2022-02-14 01:00 | NUR ---
PT WAS CLEANED AND CHANGED. NO FURTHER COMPLAINS FROM THE PT. WILL CONTINUE TO MONITOR THE PT.
--- NOTE | 2022-02-14 03:27 | NUR ---
PT IS SLEEPING COMFORTABLY IN BED. PT IS NOT IN ANY DISTRESS. BREATHING EVEN AND UNLABORED. IVF RUNNING PER MD ORDER. CALL LIGHT WITHIN REACH. ALL SAFETY MEASURES TAKEN. WILL CONTINUE TO MONITOR THE PT.
[2022-02-14 04:00] VITALS: BP 149/61
[2022-02-14] MEDS: NACL 0.9% 1,000 ML IV SCH (04:55)
[2022-02-14] MEDS: BLOOD GLUCOSE MONITORING 1 DEV DEV FS SCH ×4 (06:34→20:49)
[2022-02-14 07:12] LABS: ALBUMIN 3.4 g/dL (3.4-5.0); ANION GAP 9.4 (8-16); ASPARTATE AMINOTRANSFERASE 30 U/L (15-37); CARBON DIOXIDE 31.7 mmol/L (21-32); CHLORIDE 97 mmol/L (98-107); GLUCOSE 80 mg/dL (74-106); MAGNESIUM 2.1 mg/dL (1.8-2.4); POTASSIUM 3.1 mmol/L (3.5-5.1); SODIUM SERUM 135 mmol/L (136-145); TOTAL BILIRUBIN 0.3 mg/dL (0.0-1.0)
--- NOTE | 2022-02-14 07:15 | NUR ---
RECEIVED REPORT FROM URBAN ANTHROPOLOGIST NURSE FOR CONTINUITY OF CARE. PT ASLEEP IN BED. BREATHING SYMMETRICAL, ON O2 3L NC. FLACC O. LAC 20G WITH NS AT 75CC/HR. CALL LIGHT WITHIN REACH. ALL SAFETY MEASURES IN PLACE.
--- NOTE | 2022-02-14 07:16 | NUR ---
ENDORSED PT TO DAY SHIFT RN FOR CONTINUITY OF CARE. PT IS STABLE.
[2022-02-14 07:25] LABS: CREATININE 2.6 mg/dL (0.6-1.3); UREA NITROGEN, BLOOD 87 mg/dL (7-18)
[2022-02-14 07:32] LABS: BASOPHILS # (AUTO) 0.1 K/uL (0.00-0.22); BASOPHILS % (AUTO) 0.7 % (0.0-2.0); EOSINOPHILS # (AUTO) 0.1 K/uL (0-0.4); EOSINOPHILS % (AUTO) 0.7 % (0.0-4.0); HEMATOCRIT 29.8 % (36-48); HEMOGLOBIN 9.6 g/dL (12.0-16.0); LYMPHOCYTES # (AUTO) 1.5 K/uL (2.5-16.5); LYMPHOCYTES % (AUTO) 16.6 % (20.5-51.1); MEAN CORPUSCULAR HEMOGLOBIN 27 pg (27-31); MEAN CORPUSCULAR HGB CONC 32 g/dL (33-37); MEAN CORPUSCULAR VOLUME 83.2 fL (80-94); MONOCYTES # (AUTO) 0.4 K/uL (0.8-1.0); MONOCYTES % (AUTO) 4.3 % (1.7-9.3); NEUTROPHILS # (AUTO) 6.9 K/uL (1.8-7.7); NEUTROPHILS % (AUTO) 77.7 % (42.2-75.2); PLATELET COUNT (AUTO) 269 K/uL (140-450); RED BLOOD CELL COUNT(AUTO) 3.58 MIL/uL (4.20-5.40); RED CELL DISTRIBUTION WIDTH 16.1 % (11.6-13.7); WHITE BLOOD COUNT (AUTO) 8.9 K/uL (4.8-10.8)
--- NOTE | 2022-02-14 07:35 | NUR ---
RECEIVED CALL FROM LAB REGARDING BUN 87, CREATININE 2.6, LEFT MESSAGE TO DR VERA, BEHAVIORAL TECHNICIAN NEWSPAPER REPORTER AT THIS TIME. ALSO LEFT MESSAGE TO DR RAWLS, ALSO POTASSIUM 3.1, AWAITING ORDERS.
[2022-02-14 08:00] VITALS: BP 155/75
[2022-02-14] MEDS: MECLIZINE 25 MG TAB PO SCH ×3 (08:47→17:10)
[2022-02-14] MEDS: VITAMIN D 400 IU TAB PO SCH (08:48)
[2022-02-14] MEDS: CALCIUM ACETATE 667 MG TAB PO SCH ×3 (08:48→17:11)
[2022-02-14] MEDS: FERROUS SULFATE 325 MG TABEC PO SCH ×2 (08:48→20:43)
[2022-02-14] MEDS: OXYBUTYNIN 5 MG TAB PO SCH (08:49)
[2022-02-14] MEDS: ASPIRIN 81 MG TAB.CHEW PO SCH (08:49)
[2022-02-14] MEDS: amLODIPine 5 MG TAB PO SCH (08:49)
[2022-02-14] MEDS: INSULIN LANTUS 100 UNITS/ML 10 ML VIAL SUBQ SCH ×2 (08:56→20:53)
--- NOTE | 2022-02-14 08:56 | NUR ---
SCHEDULED AM MEDICATIONS GIVEN ORDERED. LANTUS INSULIN HELD BLOOD SUGAR IS 98. PT ABLE TO AMBULATE WITH ASSIST. C/O DIZZINESS, PT HAS HX OF VERTIGO AND ROUTINE MECLIZINE GIVEN.
[2022-02-14] MEDS ORDERED: ASPIRIN 81 MG TAB.CHEW PO SCH (09:00)
--- NOTE | 2022-02-14 09:11 | NUR ---
PATIENT HAS BEEN SCREENED AND CATEGORIZED MODERATE NUTRITION RISK. PATIENT WILL BE SEEN WITHIN 3-5 DAYS OF ADMISSION. / [address]
--- NOTE | 2022-02-14 09:50 | NUR ---
K DUR GIVEN FOR K LEVEL 3.1
[2022-02-14] MEDS ORDERED: POTASSIUM CHLORIDE 10 MEQ TABER PO SCH (10:00)
--- NOTE | 2022-02-14 10:27 | NUR ---
C PLANNIN YRS OLD FEMALE PATIENT WAS ADMITTED FROM HOME WITH A DX OF DIZZINESS, LAVERN ON CKD, UTI. PT HAS A HX OF DM, HTN, AND ADVANCED CKD. CXR SHOWED PATCHY BILATERAL INFILTRATES, MILDLY PROGRESSED COMPARED WITH THE PRIOR STUDY. RAPID COVID TEST NEGATIVE. CT HEAD SHOWED NO ACUTE INTRACRANIAL HEMORRHAGE. ADMINISTERED IVF, IV ABX ROCEPHIN AND CONTINUED HOME MEDS. CONSULTED WITH MEDICAL CODING MANAGER. DC PLAN TO GO HOME WHEN STABLE CM TO FOLLOW
[2022-02-14] MEDS: INSULIN LISPRO SLIDING SCALE 100 UNITS/ML VIAL SUBQ PRN ×2 (11:59→16:32)
[2022-02-14 12:00] VITALS: BP 152/76
--- NOTE | 2022-02-14 12:07 | NUR ---
PT VERBALIZED SEEING MONSTERS WHEN SHE CLOSES HER EYES, DENIES AUDITORY HALLUCINATIONS. ALSO C/O SORETHROAT. DR RAWLS AT [facility] AND MADE AWARE STATED HE WILL TAKE CARE OF IT. PT REMAINS ON ROCEPHIN IV ATB.
--- NOTE | 2022-02-14 13:00 | NUR ---
SPOKE WITH LEIDY TONY REGARDING UPDATE.
--- NOTE | 2022-02-14 13:28 | NUR ---
PT ASLEEP IN BED. ON O2 3L NC, WHEN ASLEEP NOTED WITH IRREGULAR BREATHING WITH EPISODES OF WAKING UP GASPING FOR AIR THEN BACK TO SLEEP AGAIN. FLACC O. CALL LIGHT WITHIN REACH. WILL CONTINUE TO MONITOR.
[2022-02-14 16:00] VITALS: BP 148/60
--- NOTE | 2022-02-14 17:10 | NUR ---
SCHEDULED PM MEDICATIONS GIVEN. PT DENIES PAIN AT THIS TIME. FREQUENT ROUNDS DONE, CALL LIGHT WITHIN REACH.
--- NOTE | 2022-02-14 19:00 | NUR ---
LEIDY FITZPATRICK VISITED AND TOOK PT'S MEDICATIONS FROM HOME
--- NOTE | 2022-02-14 19:15 | NUR ---
ENDORSED PT TO LOT PORTER NURSE, IN STABLE CONDITION
--- NOTE | 2022-02-14 19:17 | NUR ---
RECEIVED ENDORSEMENT FROM AM NURSE FOR CONTINUITY OF CARE. PATIENT IN BED RESTING COMFORTABLY. O2 AT 3L NC TOLERATING WELL. NO S/S OF RESPIRATORY DISTRESS. ALL SAFETY PRECAUTIONS ARE IN PLACE. NO COMPLAINTS OF PAIN. CALL LIGHT WITHIN REACH. WILL CONTINUE TO MONITOR PT.
[2022-02-14 20:00] VITALS: BP 120/63
--- NOTE | 2022-02-14 20:43 | NUR ---
SCHEDULED MED GIVEN PER MD ORDERED.
--- NOTE | 2022-02-14 20:49 | NUR ---
BLOOD SUGAR WAS 146, NO INSULIN PER SLIDING SCALE NEEDED.
--- NOTE | 2022-02-14 21:59 | NUR ---
PATIENT COMPLAINED OF NAUSEA, MEDICATED ORDERED.
[2022-02-15] VITALS: BP 158/70
--- NOTE | 2022-02-15 01:23 | NUR ---
CHECKED PATIENT, PT IS SLEEPING. OBSERVED CHEST RISE AND FALL SYMMETRICALLY. CALL LIGHT WITHIN REACH.
[2022-02-15 04:00] VITALS: BP 144/65
--- NOTE | 2022-02-15 07:10 | NUR ---
RECEIVED REPORT FROM BENCH ASSEMBLER ELECTRICAL NURSE FOR CONTINUITY OF CARE. PT ASLEEP IN BED. ON O2 3L NC, NO SOB NOTED AT THIS TIME. RECEIVED PT WITH HOB ELEVATED. FLACC O. WITH LAC 20G, ON SALINE LOCK. CALL LIGHT WITHIN REACH. BED ON LOW POSITION, BRAKES ON. ALL SAFETY MEASURES IN PLACE.
--- NOTE | 2022-02-15 07:12 | NUR ---
BEDSIDE ENDORSEMENT GIVEN TO AM NURSE FOR CONTINUITY OF CARE. PATIENT IS IN STABLE CONDITION.
[2022-02-15] MEDS: BLOOD GLUCOSE MONITORING 1 DEV DEV FS SCH ×2 (07:36→11:48)
[2022-02-15 08:00] VITALS: BP 149/63
--- NOTE | 2022-02-15 08:02 | NUR ---
TITRATED O2 TO 2L NC, PT SATING AT 93-95% WILL MONITOR.
--- NOTE | 2022-02-15 08:06 | NUR ---
OBTAINED CBC/BMP ORDER FOR UPDATE FROM DR RAWLS
[2022-02-15] MEDS: OXYBUTYNIN 5 MG TAB PO SCH (08:36)
[2022-02-15] MEDS: VITAMIN D 400 IU TAB PO SCH (08:36)
[2022-02-15] MEDS: amLODIPine 5 MG TAB PO SCH (08:36)
[2022-02-15] MEDS: FERROUS SULFATE 325 MG TABEC PO SCH (08:36)
[2022-02-15] MEDS: CALCIUM ACETATE 667 MG TAB PO SCH ×2 (08:37→12:08)
[2022-02-15] MEDS: ASPIRIN 81 MG TAB.CHEW PO SCH (08:37)
[2022-02-15] MEDS: MECLIZINE 25 MG TAB PO SCH ×2 (08:37→12:08)
[2022-02-15] MEDS: INSULIN LANTUS 100 UNITS/ML 10 ML VIAL SUBQ SCH (08:40)
--- NOTE | 2022-02-15 08:41 | NUR ---
SCHEDULED AM MEDICATIONS GIVEN ORDERED. PT REFUSED LANTUS, EXPLAINED RISK AND BENEFITS. PT EATING BREAKFAST AT THIS TIME.
[2022-02-15 09:20] LABS: BASOPHILS # (AUTO) 0.1 K/uL (0.00-0.22); BASOPHILS % (AUTO) 0.8 % (0.0-2.0); EOSINOPHILS % (AUTO) 0.4 % (0.0-4.0); HEMATOCRIT 29.1 % (36-48); HEMOGLOBIN 9.4 g/dL (12.0-16.0); LYMPHOCYTES # (AUTO) 1.6 K/uL (2.5-16.5); LYMPHOCYTES % (AUTO) 19.1 % (20.5-51.1); MEAN CORPUSCULAR HEMOGLOBIN 27 pg (27-31); MEAN CORPUSCULAR HGB CONC 32 g/dL (33-37); MEAN CORPUSCULAR VOLUME 83.2 fL (80-94); MONOCYTES # (AUTO) 0.6 K/uL (0.8-1.0); MONOCYTES % (AUTO) 7.8 % (1.7-9.3); NEUTROPHILS # (AUTO) 5.9 K/uL (1.8-7.7); NEUTROPHILS % (AUTO) 71.9 % (42.2-75.2); PLATELET COUNT (AUTO) 273 K/uL (140-450); RED BLOOD CELL COUNT(AUTO) 3.49 MIL/uL (4.20-5.40); RED CELL DISTRIBUTION WIDTH 16.3 % (11.6-13.7); WHITE BLOOD COUNT (AUTO) 8.3 K/uL (4.8-10.8)
[2022-02-15 09:35] LABS: CARBON DIOXIDE 31.1 mmol/L (21-32); CHLORIDE 99 mmol/L (98-107); CREATININE 2.7 mg/dL (0.6-1.3); GLUCOSE 170 mg/dL (74-106); POTASSIUM 4.1 mmol/L (3.5-5.1); SODIUM SERUM 135 mmol/L (136-145)
[2022-02-15 09:41] LABS: UREA NITROGEN, BLOOD 80 mg/dL (7-18)
--- NOTE | 2022-02-15 09:49 | NUR ---
RECEIVED CALL FROM LAB REGARDING BUN 80 AND CREATININE 2.7, DR LIVINGSTON CONSULTING ASSISTANT FACILITY MANAGER MADE AWARE, NO ORDERS MADE.
--- NOTE | 2022-02-15 10:14 | NUR ---
PT SATING AT 93-94% ON 2L NC. TITRATED TO 1L SATING AT 92%, WILL CONTINUE TO MONITOR.
--- NOTE | 2022-02-15 11:45 | NUR ---
PT SATING AT 88-92% ON 1L, PUT BACK TO 2L NC. NO SOB NOTED. DENIES PAIN AT THIS TIME. WILL CONTINUE TO MONITOR.
[2022-02-15] MEDS: INSULIN LISPRO SLIDING SCALE 100 UNITS/ML VIAL SUBQ PRN (11:54)
[2022-02-15 12:00] VITALS: BP 157/78
[2022-02-15] MEDS ORDERED: CEPH-588 PO (12:34)
--- NOTE | 2022-02-15 12:38 | NUR ---
URINE CULTURE CAME BACK WITH E. COLI SUSCEPTIBLE TO CEFTRIAXONE WHICH PT IS ALREADY GETTING. DR RAWLS AT [facility] AND MADE AWARE.
[2022-02-15 13:31] VITALS: BP 157/78
--- NOTE | 2022-02-15 13:38 | NUR ---
CALLED LEIDY GRAND DAUGHTER AND MADE AWARE OF PT'S DISCHARGE TODAY. WILL INVESTMENT CONSULTANT PT AFTER 1500.
--- NOTE | 2022-02-15 15:35 | NUR ---
PT DISCHARGED TO HOME WITH BELONGINGS AND DISCHARGE PACKET, PICKED UP BY FAMILY, IN STABLE CONDITION.
--- NOTE | 2022-02-15 15:51 | NUR ---
PATIENT IS A 76-YEAR-OLD FEMALE ADMITTED ON 02/13/2022 AT [facility]/ED DUE TO COMPLAINTS OF GENERALIZED WEAKNESS AND DIZZINESS FOR ABOUT 5 DAYS. PATIENT HAS HX OF LIVER DISEASE, DIABETES AND HYPERTENSION. (PATIENT IS MALDIVIAN SPEAKING ONLY). SW MET WITH PATIENT AND DAUGHTER AT BEDSIDE TO DISCUSS AND GATHER PATIENT'S COLLATERAL INFORMATION. PATIENT REPORTED LIVING AT HOME WITH HER DAUGHTER AND GRANDDAUGHTER [place]. PATIENT REPORTED HAVING GOOD FAMILY SUPPORT AND BEEN ACTIVE AND INDEPENDENT AT HOME. PATIENT REPORTED NOT HAVING ADVANCE DIRECTIVES AND WAS NOT INTERESTED ON GETTING INFORMATION PACKET PROVIDED BY SW AT THE TIME OF VISIT. PATIENT REPORTED HAVING A CANE AND A WALKER HE ONLY DME AT HOME. PATIENT ALSO REPORTED HAVING NO ISSUES GETTING OR TAKING ANY MEDICATIONS THAT HER FAMILY PICKS UP IN [facility] IN [place]. SW EXPLAINED TO PATIENT THE NEED TO FOLLOW UP WITH AN APPOINTMENT WITHIN 5-7 DAYS WITH HER PCP BIRDIE HURTADO HER AFTER DC, PATIENT AGREED AND STATED THAT HER FAMILY WILL BE MAKING HER FOLLOW UP APPOINTMENT; WITH PRIMARY DOCTOR AFTER SHE DISCHARGES FROM [facility]. PATIENT STATED THAT HER DAUGHTER WILL BE ASSISTING WITH TRANSPORTATION BACK HOME WHEN SHE IS READY FOR DISCHARGE. SW WILL FOLLOW UP WITH PATIENT NEEDED. Addendum: 02/15/22 at 1552 by Radha Rendon Amended: Links added.
== END 2022-02-15 15:35 | disposition home or self-care (01) | DRG 683 ==
LOC: MED 11:38 → MTU 15:42
PROVIDERS: ADMIT Hospitalist; ATTEND Hospitalist
DX: N17.9 Acute kidney failure, unspecified (principal); N39.0 Urinary tract infection, site not specified; N18.4 Chronic kidney disease, stage 4 (severe); I95.9 Hypotension, unspecified; E87.6 Hypokalemia; E86.1 Hypovolemia; D64.9 Anemia, unspecified; I12.9 Hypertensive chronic kidney disease with stage 1 through stage 4 chronic kidney disease, or unspecified chronic kidney disease; Z20.822 Contact with and (suspected) exposure to COVID-19; E11.22 Type 2 diabetes mellitus with diabetic chronic kidney disease; E78.5 Hyperlipidemia, unspecified; Z79.82 Long term (current) use of aspirin; Z79.899 Other long term (current) drug therapy
CPT/HCPCS: 36415; 70450; 71045; 80048; 80053; 81001; 82948; 83735; 83880; 84484; 85025; 87081; 87086; 93005; 96365; 99285; J0696; J1815; J2405; J7060; J8597; Q0092; Q0163; Q0164

== ENCOUNTER 2022-02-21 17:59 | Emergency (ER) | payer MEDICARE, OTHER ==
[~2022-02-21] VITALS: Ht 167.6 cm; Wt 95.7 kg
[~2022-02-21 17:59] MED LIST changes: +CEPH-588 PO
--- NOTE | 2022-02-21 17:59 | NUR ---
1755- ON ARRIVAL ERMD, RT, RN, AND EMT AT PT BEDSIDE. CPR CONTINUED ON ARRIVAL. IV TO L AC 18G STARTED. SEE CODE BLUE RECORD.
--- NOTE | 2022-02-21 17:59 | NUR ---
1755- PT TAKEN TO ER BED 10 ALS, FULL ARREST.
--- NOTE | 2022-02-21 18:04 | NUR ---
Derek CALLED BY DR. SAHU.
--- NOTE | 2022-02-21 18:07 | NUR ---
76 Y/O FEMALE BIBA ALS FULL ARREST PER PT FAMILY PT IN BATHROOM AT HOME [id number]. FAMILY FOUND PT DOWN. PER FIRE PT ASYSTOLE ON ARRIVAL ACLS INITIATED FOR 15MINUTES, GIVEN 6 ROUNDS OF EPI, GIVEN 1 CA+, 1 AMP OF BICARB. PT VTACH SHOCKED 1 TIME. IO TO RIGHT LEG STARTED RUNNING NS BOLUS. BLOOD GLUCOSE 293 ON SCENE, ON ARRIVAL BS 163. IV STARTED TO L AC 18G. PMH: NEW ESRD (NO DIALYSIS), DM, HTN, HLD NKA
--- NOTE | 2022-02-21 18:25 | NUR ---
SPOKE WITH VISHAL FROM [facility]. STATES PT IS ELEGIBLE FOR DONATION. WILL BE CALLING BACK IN 1HR. [id number]
--- NOTE | 2022-02-21 18:27 | NUR ---
SPOKE WITH ANAM FROM [employer] TO REPORT. WILL CALL BACK.
--- NOTE | 2022-02-21 19:23 | NUR ---
GAVE REPORT TO FABIOLA PLASENCIA. TRANSFER OF CARE AT THIS TIME.
--- NOTE | 2022-02-21 20:20 | NUR ---
SPOKE WITH CAMILLA VILLA AT THE CORONERS OFFICE. SHE REPORTS TO RELEASE THE BODY. THERE IS NO CASE NUMBER AT THIS TIME. CAMILLA STATES MORTUARY WILL REPORT IT LATER.
--- NOTE | 2022-02-21 21:50 | NUR ---
POST MORTEM CARE DONE.
--- NOTE | 2022-02-22 00:08 | NUR ---
[facility] [employer] HERE. PT TRANSFERED
== END 2022-02-21 18:04 ==
LOC: MED 17:59
DX: I46.9 Cardiac arrest, cause unspecified (principal); E11.9 Type 2 diabetes mellitus without complications; I10 Essential (primary) hypertension; Z79.899 Other long term (current) drug therapy; Z90.49 Acquired absence of other specified parts of digestive tract
CPT/HCPCS: 31500; 92950; 99285